=== PATIENT | female | born 1955 | race Caucasian/White ===

== ENCOUNTER → 2017-06-12 | Outpatient (CLI) | payer OTHER | END | disposition home or self-care (01) | LOC: C.PAPS 15:57 | PROVIDERS: ATTEND Obstetrics & Gynecology | DX: Z01.419 Encounter for gynecological examination (general) (routine) without abnormal findings (principal) ==

== ENCOUNTER 2021-08-11 05:33 | Observation (INO) ==
[2021-08-11] MEDS ORDERED: FAMOTIDINE 20MG IV PUSH 20 MG/5 ML SYR IV STA (05:46)
[2021-08-11] MEDS ORDERED: ONDANSETRON INJ 2 MG/ML 2 ML VIAL IV STA ×2 (05:46→08:57)
[2021-08-11 06:14] LABS: Basophils # (auto) 0.01 K/uL (0-0.2); Basophils % (auto) 0.1 %; Eosinophils # (auto) 0.02 K/uL (0-0.5); Eosinophils % (auto) 0.2 %; Hematocrit (blood only) 44.1 % (37-47); Immature Granulocytes # (auto) 0.02 K/uL (0.00-0.02); Immature Granulocytes % (auto) 0.2 %; Lymphocytes # (auto) 0.99 K/uL (1.2-3.4); Lymphocytes % (auto) 10.1 %; Mean Corpuscular Hemoglobin 30.1 pg (25-34); Mean Corpuscular Volume 88.4 fL (80-100); Mean Platelet Volume 9.4 fL (7.4-10.4); Monocytes % (auto) 4.1 %; Neutrophils # (auto) 8.35 K/uL (1.4-6.5); Neutrophils % (auto) 85.3 %; Platelet Count 255 K/uL (130-400); RDW Coefficient of Variation 12.9 % (11.5-14.5); Red Blood Count 4.99 M/uL (4.2-5.4); White Blood Count 9.79 K/uL (4.8-10.8)
[2021-08-11 06:33] LABS: Albumin Globulin Ratio 1.7 (0.9-2); Albumin Level 4.5 gm/dl (3.4-5.0); BUN Creatinine Ratio 21.3 (10-20); Bilirubin,Total 1.3 mg/dl (0.2-1.0); Calcium 9.8 mg/dl (8.5-10.1); Creatinine Clr Calc Pharmacy 64.6 ml/min; Est GFR (African American) 96.9 ml/min; Est GFR (Non-African American) 83.6 ml/min; Globulin 2.6 gm/dl (2.5-4.0); Potassium 3.8 mmol/L (3.5-5.1); Total Protein 7.1 gm/dl (6.0-8.3)
--- NOTE | 2021-08-11 06:57 | Emergency Department Note ---
History of Present Illness General Chief complaint: Abdominal Pain Stated complaint: UPPER ABD PAIN,VOMITING,CHEST PAID,SHOULD/NECK ALIX Time Seen by Provider: 08/11/21 06:29 History of Present Illness Maximum Pain Intensity: 5 70-year-old female presents to the ED with a chief complaint of abdominal pain. Patient reported a crampy and occasionally sharp upper abdominal pain and present for the past couple of days. He also states that yesterday she developed nausea and vomiting. Denies any diarrhea. Last normal bowel movement was yesterday morning. No fevers. No sick contacts. States that her pain is somewhat subsided at this time. She did receive some nausea medication prior to me seeing her. She states that that has helped. Denies any back pains. Does report a history of hysterectomy several months ago. He states that they also found cancer in her uterus. She is scheduled to start chemotherapy. No other complaints at this time. No urinary symptoms. Vaginal discharge. Home Medications Medication Instructions Recorded Confirmed Type omega-3 acid ethyl esters 1 gram 1 cap PO QAM 02/15/21 08/08/21 History capsule (Lovaza) thyroid (pork) 60 mg tablet 60 mg PO QAM tab 02/20/21 08/08/21 History cholecalciferol (vitamin D3) 50 50 mcg PO DAILY 08/06/21 08/08/21 History mcg (2,000 unit) capsule Allergies Allergy/AdvReac Type Severity Reaction Status Date / Time egg Allergy Intermediate "INFLAMMATORY Verified 08/08/21 13:58 REACTION" milk Allergy Intermediate "dairy Verified 08/08/21 13:58 products" - "INFLAMMATORY REACTION" levofloxacin [From Levaquin] AdvReac Intermediate "didn't Verified 08/08/21 13:58 feel well." Past Med/Surg History Medical History Anxiety HIGH STRESS LEVEL OVER PAST FEW MONTHS, MULTIPLE DEATHS OF LOVED ONES IN THE PAST YR Bronchitis COPD (chronic obstructive pulmonary disease) NO CURRENT MEDS Family history of reaction to anesthesia MOM - SLOW TO WAKE UP Hepatitis HX HEPATITIS B History of anesthesia reaction "OVERLY SENSITIVE TO" - SLOW TO WAKE UP History of rheumatic fever Hypothyroidism 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 Mild MR Snores ORAL APPLIANCE, NO HX SLEEP STUDY Spinal arachnoid cyst Surgical History H/O: hysterectomy Robotic Assisted Laparoscopic hysterectomy, Bilateral Salpingo-oopherectomy History of colonoscopy History of dilatation and curettage last 03/11/21 @ [place] with Dr. Schmitz History of parotid gland excision S/P appendectomy HX S/P tonsillectomy HX S/P wisdom tooth extraction HX Family History Father Heart disease Grandfather (Paternal) No problems noted. Grandfather (Maternal) No problems noted. Grandmother Colorectal cancer Mother Family history of colonic polyps History of anesthesia reaction overly sensitive to anesthesia Stroke Social History Smoking Status: Never smoker Second Hand Exposure: No; Hx Alcohol Use: Yes Alcohol type: wine Hx Substance Use: No Preferred Language: Turkmen Communication Ability: Effective Visual Impairment: No Limitations [employer] Professor Required: No Beliefs That Will Affect Care: None marital status: Current Living Situation: Spouse current occupational status: retired How many Children do You have: 0 Feels Safe at Home: Yes during the past year weight has: remained stable Assistive Devices: Glasses Review of Systems A total of 10 systems reviewed and were otherwise negative Physical Exam Vital Signs Vital Signs - 24 hr 08/11/21 05:37 08/11/21 05:58 08/11/21 05:59 Temperature 36.7 C Temperature Source Temporal Artery Scan Pulse Rate 104 H 99 H Pulse Rate [Finger] Pulse Rate from SpO2 Sensor Pulse Rhythm Regular Pulse Rhythm [Finger] Respiratory Rate 18 26 H 18 Respiratory Effort / Characteristics Non-Labored Spontaneous Non-Labored Respiratory Depth Normal Normal Respiratory Pattern Regular Blood Pressure 126/84 Blood Pressure [Right Arm] 142/83 H Blood Pressure Mean 98 Blood Pressure Mean [Right Arm] 102 Blood Pressure Position Sitting Blood Pressure Position [Right Arm] Sitting Pulse Oximetry 97 98 98 Oxygen Delivery Method Room Air Room Air Room Air Sepsis Recent Fever Within 48 Hours No Sepsis New/Unexplained Change in Mental Status No Sepsis Action Taken by Nursing No Action Required 08/11/21 06:20 08/11/21 06:30 08/11/21 06:40 Temperature Temperature Source Pulse Rate 79 91 H 86 Pulse Rate [Finger] Pulse Rate from SpO2 Sensor 81 90 88 Pulse Rhythm Pulse Rhythm [Finger] Respiratory Rate 13 16 17 Respiratory Effort / Characteristics Respiratory Depth Respiratory Pattern Blood Pressure Blood Pressure [Right Arm] Blood Pressure Mean Blood Pressure Mean [Right Arm] Blood Pressure Position Blood Pressure Position [Right Arm] Pulse Oximetry 100 100 98 Oxygen Delivery Method Sepsis Recent Fever Within 48 Hours Sepsis New/Unexplained Change in Mental Status Sepsis Action Taken by Nursing 08/11/21 07:22 08/11/21 08:30 Temperature Temperature Source Pulse Rate Pulse Rate [Finger] 85 84 Pulse Rate from SpO2 Sensor Pulse Rhythm Pulse Rhythm [Finger] Regular Respiratory Rate 18 18 Respiratory Effort / Characteristics Respiratory Depth Respiratory Pattern Blood Pressure Blood Pressure [Right Arm] 135/81 137/88 Blood Pressure Mean Blood Pressure Mean [Right Arm] 99 104 Blood Pressure Position Blood Pressure Position [Right Arm] Pulse Oximetry 99 100 Oxygen Delivery Method Room Air Room Air Sepsis Recent Fever Within 48 Hours Sepsis New/Unexplained Change in Mental Status Sepsis Action Taken by Nursing CONSTITUTIONAL/VITAL SIGNS: Reviewed / noted above. GENERAL: Non-toxic in appearance. INTEGUMENTARY: Warm, dry, and [place]. HEAD: Normocephalic. EYES: without scleral icterus or trauma. ENT/OROPHARYNX: clear and moist. LYMPHADENOPATHY/NECK: Is supple without lymphadenopathy or meningismus. RESPIRATORY: Clear to auscultation bilaterally. No increased work of breathing. CARDIOVASCULAR: Regular rate and rhythm. GI/ABDOMEN: Soft and mildly tender in the pelvic area. No organomegaly or pulsatile mass. EXTREMITIES: Warm and well perfused. BACK: No CVA tenderness. NEUROLOGICAL: Intact without focal deficits. PSYCHIATRIC: normal affect. MUSCULOSKELETAL: Normally developed with good muscle tone. TRIAGE NURSING DOCUMENTATION REVIEWED. Course Administered Medications Sodium Chloride (Nss 1000ml) 2,000 mls @ 999 mls/hr IV .Q2H1M ONE Stop: 08/11/21 10:12 Last Admin: 08/11/21 08:20 Dose: 999 mls/hr Documented by: [id number] Discontinued Medications Famotidine (Pepcid 20mg Iv Push) 20 mg in 5 mls @ 2.5 mls/min IV NOW STA Stop: 08/11/21 05:47 Last Admin: 08/11/21 06:03 Dose: 2.5 mls/min Documented by: [id number] Ondansetron HCl (Ondansetron Inj 2 Mg/Ml 2 Ml Vial) 4 mg IV NOW STA Stop: 08/11/21 05:47 Last Admin: 08/11/21 06:01 Dose: 4 mg Documented by: [id number] Medical Decision Making Differential Diagnosis Differential considered: pancreatitis, hepatitis, acute cholecystitis, AAA, UTI, pyelonephritis, kidney stones, appendicitis, diverticulitis, shingles, b owel obstruction, mesenteric ischemia, intussusception,hernia Medical Records Attestation: I reviewed the patient's medical records. Home Medications Current Medication List: was personally reviewed by me Laboratory Data Attestation: I reviewed the patient's lab results. Result diagrams: 08/11/21 06:00 08/11/21 06:00 Lab Results 08/11/21 08/11/21 08/11/21 Range/Units 06:00 06:00 06:00 WBC 9.79 (4.8-10.8) K/uL RBC 4.99 (4.2-5.4) M/uL Hgb 15.0 (12.0-16.0) g/dL Hct 44.1 (37-47) % MCV 88.4 (80-100) fL MCH 30.1 (25-34) pg MCHC 34.0 (32-36) g/dL RDW Std Deviation 42.0 (36.4-46.3) fL RDW Coeff of Elvi 12.9 (11.5-14.5) % Plt Count 255 (130-400) K/uL MPV 9.4 (7.4-10.4) fL Immature Gran % (Auto) 0.2 % Neut % (Auto) 85.3 % Lymph % (Auto) 10.1 % [place] % (Auto) 4.1 % Eos % (Auto) 0.2 % Baso % (Auto) 0.1 % Neut # (Auto) 8.35 H (1.4-6.5) K/uL Lymph # (Auto) 0.99 L (1.2-3.4) K/uL [place] # (Auto) 0.40 (0.11-0.59) K/uL Eos # (Auto) 0.02 (0-0.5) K/uL Baso # (Auto) 0.01 (0-0.2) K/uL Immature Gran # (Auto) 0.02 (0.00-0.02) K/uL Sodium 138 (136-145) mmol/L Potassium 3.8 (3.5-5.1) mmol/L Chloride 101 (98-107) mmol/L Carbon Dioxide 26 (21-32) mmol/L Anion Gap 11 (3-11) BUN 16 (6-23) mg/dl Creatinine 0.75 (0.6-1.2) mg/dl Est Cr Clr Drug Dosing 64.6 ml/min Est GFR ( Amer) 96.9 ml/min Est GFR (Non-Af Amer) 83.6 ml/min BUN/Creatinine Ratio 21.3 H (10-20) Glucose 91 (70-99(Fasting)) mg/dl Calcium 9.8 (8.5-10.1) mg/dl Total Bilirubin 1.3 H (0.2-1.0) mg/dl AST 17 (13-39) U/L ALT 11 (7-52) U/L Alkaline Phosphatase 50 (34-104) U/L Troponin I High Sens 4.0 (0-14) pg/ml Total Protein 7.1 (6.0-8.3) gm/dl Albumin 4.5 (3.4-5.0) gm/dl Globulin 2.6 (2.5-4.0) gm/dl Albumin/Globulin Ratio 1.7 (0.9-2) Lipase 15 (11-82) U/L Imaging Data Radiologist's Impression: Abdomen/Pelvis CT 08/11/21 06:[address] WITHOUT CONTRAST CT DOSE: 266.47 mGy.cm HISTORY: Lower abdominal pain. TECHNIQUE: Multiaxial CT images of the abdomen and pelvis were performed without contrast. A dose lowering technique was utilized adhering to the principles of ALARA. COMPARISON STUDY: Abdomen and pelvis CT 06/21/2021. FINDINGS: The lung bases are clear. No pneumoperitoneum. No pneumatosis. No fractures within the visualized osseous structures. The unenhanced liver, spleen, left adrenal gland, gallbladder, pancreas, and kidneys are unremarkable. No hydronephrosis. There is 1.5 cm right adrenal gland nodule which likely represents a benign adenoma. Trace perihepatic ascites is noted. No retroperit escamilla lymphadenopathy. Normal caliber abdominal aorta. No hydronephrosis. Small amount pelvic free fluid. Suboptimal evaluation for bowel pathology due to the lack of intravenous and oral contrast. There are multiple dilated loops of small bowel within the mid to lower abdomen with mild adjacent edema this is consistent with a small bowel obstruction. The exact transition point is difficult to assess due to the lack of intravenous contrast. Lobular density within the left side of the pelvis on image 331 may represent a dilated loop of small bowel. However, this is difficult to characterize due to lack of intravenous contrast. Therefore, follow-up pelvic ultrasound recommended to exclude the possibility of a left pelvic sidewall mass. Prior hysterectomy. The bladder is unremarkable. A small bowel measures up to 3.5 cm in diameter. IMPRESSION: 1. There are multiple dilated loops of small bowel seen within the mid to lower abdomen consistent with a small bowel obstruction. The exact transition point is not well assessed due to the lack of contrast on this study. 2. Small amount of ascites. 3. Prior hysterectomy. 4. Right adrenal adenoma. 5. Lobular density within the left side of the pelvis as described above which likely represents a dilated loop of small bowel. However, this difficult to characterize due to lack of intravenous contrast. Follow-up pelvic ultrasound should be considered to exclude the possibility of a left pelvic sidewall mass. ACT 112: Negative or not required by law. Electronically signed by: Kevin Gallardo M.D. 08/11/2021 8:18 AM ECG Data Attestation: I personally reviewed and interpreted this ECG as follows: Additional Comments: Twelve-lead EKG: Per my interpretation shows a normal sinus rhythm at a rate of 93. No ST elevation. No PVCs. Normal QTC. MDM Narrative 66-year-old female presents with some upper abdominal pain as well as nausea and vomiting that started 2 days ago. Moved IV Zofran here prior to me seeing her as well as some IV Pepcid and her symptoms seem to have improved some. On my exam she has some lower abdominal tenderness that is mild. She has history of hysterectomy several months ago. Vital signs are normal. CT scan of the abdomen pelvis reveals small bowel obstruction. CBC and chemistry panel was unremarkable. Lipase was negative. Twelve-lead EKG showed a normal sinus rhythm. Troponin was negative. The patient was treated with Zofran IV x2 as well as IV fluids 2 L normal saline during her ED stay. She was also given IV Pepcid. She will be seen by the hospitalist for further inpatient evaluation and care. Impression & Plan Abdominal pain, SBO (small bowel obstruction) Discharge Plan Visit Data Chief Complaint: Abdominal Pain Stated Complaint: UPPER ABD PAIN,VOMITING,CHEST PAID,SHOULD/NECK ALIX ED Provider: Jose Luis Whitfield Discharge Problem: Abdominal pain, SBO (small bowel obstruction) Patient Disposition: Being Evaluated by Hospitalist Forms Stand Alone Forms: [facility] [place] Prescriptions Prescriptions: No Action omega-3 acid ethyl esters [Lovaza] 1 gram capsule 1 cap PO QAM RF: 0 cholecalciferol (vitamin D3) 50 mcg (2,000 unit) capsule 50 mcg PO DAILY RF: 0 thyroid (pork) 60 mg tablet 60 mg PO QAM RF: 0 Referrals Referrals: Maranda Hernandez MD [Primary Care Provider] -
[2021-08-11] MEDS ORDERED: SODIUM CHLORIDE 0.9% 1000ML 2,000 ML IV ONE (08:12)
--- NOTE | 2021-08-11 08:20 | CT Scan Report ---
ABDOMEN AND PELVIS CT WITHOUT CONTRAST CT DOSE: 266.47 mGy.cm HISTORY: Lower abdominal pain. TECHNIQUE: Multiaxial CT images of the abdomen and pelvis were performed without contrast. A dose lo wering technique was utilized adhering to the principles of ALARA. COMPARISON STUDY: Abdomen and pelvis CT 06/21/2021. FINDINGS: The lung bases are clear. No pneumoperitoneum. No pneumatosis. No fractures within the visu alized osseous structures. The unenhanced liver, spleen, left adrenal gland, gallbladder, pancreas, a nd kidneys are unremarkable. No hydronephrosis. There is 1.5 cm right adrenal gland nodule which like ly represents a benign adenoma. Trace perihepatic ascites is noted. No retroperitoneal lymphadenopath y. Normal caliber abdominal aorta. No hydronephrosis. Small amount pelvic free fluid. Suboptimal eval uation for bowel pathology due to the lack of intravenous and oral contrast. There are multiple dilat ed loops of small bowel within the mid to lower abdomen with mild adjacent edema this is consistent w ith a small bowel obstruction. The exact transition point is difficult to assess due to the lack of i ntravenous contrast. Lobular density within the left side of the pelvis on image 331 may represent a dilated loop of small bowel. However, this is difficult to characterize due to lack of intravenous co ntrast. Therefore, follow-up pelvic ultrasound recommended to exclude the possibility of a left pelvi c sidewall mass. Prior hysterectomy. The bladder is unremarkable. A small bowel measures up to 3.5 cm in diameter. IMPRESSION: 1. There are multiple dilated loops of small bowel seen within the mid to lower abdomen consistent wi th a small bowel obstruction. The exact transition point is not well assessed due to the lack of cont rast on this study. 2. Small amount of ascites. 3. Prior hysterectomy. 4. Right adrenal adenoma. 5. Lobular density within the left side of the pelvis as described above which likely represents a di lated loop of small bowel. However, this difficult to characterize due to lack of intravenous contras t. Follow-up pelvic ultrasound should be considered to exclude the possibility of a left pelvic sidew all mass. ACT 112: Negative or not required by law. Electronically signed by: Kevin Gallardo M.D. 08/11/2021 8:18 AM
[2021-08-11 09:53] LABS: Appearance Urine Clear (Clear); Bilirubin Urine Negative (Negative); Blood Urine Negative (Negative); Color Urine Yellow; Glucose Urine UA Negative (Negative); Ketones Urine 1+ (Negative); Leukocyte Esterase Urine Negative (Negative); Nitrite Urine Negative (Negative); Protein Urine Negative (Negative); Urobilinogen Urine Negative (Negative)
[2021-08-11] MEDS ORDERED: ACETAMINOPHEN 1000 MG/100 ML IV IV STA (10:22)
--- NOTE | 2021-08-11 10:38 | Electrocardiogram Report ---
Test Reason : Blood Pressure : / mmHG Vent. Rate : 093 BPM Atrial Rate : 093 BPM P-R Int : 130 ms QRS Dur : 090 ms QT Int : 368 ms P-R-T Axes : 081 087 064 degrees QTc Int : 457 ms Normal sinus rhythm with sinus arrhythmia Possible Left atrial enlargement Nonspecific ST abnormality No previous ECGs available Confirmed by Hussein Hou [id number]) on 08/11/2021 10:38:09 AM Referred By: Confirmed By:Hussein Hou
[2021-08-11] MEDS ORDERED: MoRPHine SULFATE 2 MG/ML CARP IV PRN ×2 (11:19→15:57)
[2021-08-11] MEDS: LACTATED RINGER'S 1,000 ML IV SCH ×2 (12:21→20:23)
--- NOTE | 2021-08-11 12:41 | Ultrasound Report ---
US pelvic limited CLINICAL HISTORY: bowel loop vs pelvic mass seen on CT COMPARISON STUDY: Abdomen and pelvis CT 08/11/2021. FINDINGS: There is a 4.4 x 4.4 x 3.8 cm complex cystic lesion within the left lower quadrant which co rresponds to the CT abnormality. This demonstrates internal echoes and thin septations. There is lizzie pheral color flow within this lesion. This is adjacent to multiple dilated loops of small bowel. IMPRESSION: A 4.4 x 4.4 x 3.8 cm complex cystic lesion within the left lower quadrant which correspo nds to the CT abnormality. This is indeterminate could and represent a complex cystic lesion within t he residual left ovary, postoperative seroma/lymphocele, or abscess. ACT 112: Negative or not required by law. Electronically signed by: Kevin Gallardo M.D. 08/11/2021 12:40 PM
[2021-08-11] MEDS: ENOXAPARIN INJ 30 MG/0.3 ML SYR SQ SCH (13:45)
--- NOTE | 2021-08-11 15:52 | History & Physical Report ---
Date of Service August 11, 2021 Assessment & Plan (1) SBO (small bowel obstruction): Plan: - Most likely adhesional -Given that a recent malignancy history, that was of a degree of concern, but there is really nothing that appears malignant on abdomen/pelvic imaging, she has no adenopathy, no liver mets, etc.so I doubt this is at play -Discussed the high probability of success with supportive care and expectant management with what appears to be adhesional small bowel obstructioncurrently n.p.o. except for ice chips (in moderation), IV fluids, pain and nausea control, anticipate slowly advancing diet as pain and nausea get better. If she does not show any improvement over a few days, shows any significant worsening, or if we keep "hitting the ceiling" of not being able to advance her dietthen surgical evaluation. (2) Soft tissue lesion of pelvic region: Plan: - CT scan with question of loop of bowel versus soft tissue mass with ultrasound recommendedultrasound done which showed ovarian cyst versus seroma versus abscessshe does not believe she has any ovaries left after her procedure in April, and the operative notes do list bilateral salpingo-oophorectomy, so highly unlikely to be ovarian cyst. With no significant fevers, and no pain other than what would be attributable to bowel obstruction, abscess seems quite unlikely as wellto that end, will follow white count into tomorrow and check a CRPbut more than likely this is a seroma. We discussed HOSPITALITY SERVICES MANAGER evaluation versus expectant management/serial imaging, and both felt safe with the plan of expectant management and serial imaging, particularly given that she will have quite a bit of imaging of that region as she has her treatments (3) Leiomyosarcoma of uterus: Plan: - Empathized with her going through a lot right now outside of her own medical issues, and also empathized with her thought process that if all of the cancer was removed surgically, she might be okay without having to go through chemotherapy. However, noted that unfortunately this would be a very significant zaidi, that if she "Gisela wrong" she really could find herself in a position where she has cost herself her own life. Also noted that while she has a significant number of life events going on right now, I would not want her to delay treatment further by much at all, as that could allow any seeding of cancer to "get a foot hold" and be much tougher or potentially impossible to treat. We discussed that if truly 1 to 2 weeks makes a big difference in her stress, then that could easily be worthwhile, but if not, would want her to proceed as scheduled. To that end, while her echocardiogram is really as an outpatient, it appears necessary prior to her chemotherapy, and so that we do not cause delays in her chemo ourselves, echo has been ordered (4) Hypothyroidism: Plan: Would like to check a TSH because she is on a pork thyroid rather than a more conventional levothyroxinebut given her acute illness, now would not be a good time to get an accurate TSH result (5) DVT prophylaxis: Plan: Lovenox (6) Discharge planning issues: Plan: Admit to [facility], anticipate being able to discharge to home once her bowel obstruction has improved Admission and Anticipated Discharge Date Admission Date: August 11, 2021 History of Present Illness Chief Complaint: Abdominal pain, nausea vomiting Primary Care Provider: Maranda Hernandez MD Patient is a very pleasant 66-year-old female who notes that since Thursday she has had worsening of abdominal pain nausea and vomiting. At first she was trying to wait it out at home, then through the day yesterday whenever she was not really able to keep much of anything down she started become more concerned, and then today whenever she still had pain nausea and vomiting she decided to seek care. Here in the ER she was found to have findings consistent with a small bowel obstruction we were asked to admit for further management. She denies any other symptoms at all, no fevers chills sweats, no respiratory symptoms, no symptoms at all other than the abdominal pain nausea vomiting. She is in the middle of initiation of chemotherapy for leiomyosarcoma of the uterusshe had a hysterectomy about 3 months ago, and was recommended for postoperative therapyshe is to have a port placed this week and chemo to start shortly thereafter, echocardiogram tomorrow. She was not sure if she wanted to follow through with the chemotherapy given that pathologically the tumor was entirely removed. She relates that her understanding of the main reason for the therapy was due to concern of potential seeding of malignancy. She also notes that even if she was to follow through with therapy, she would like to wait another week or 2 due to a series of stressful events in her life that have recently occurred Allergies Allergy/AdvReac Type Severity Reaction Status Date / Time egg Allergy Intermediate "INFLAMMATORY Verified 08/08/21 13:58 REACTION" milk Allergy Intermediate "dairy Verified 08/08/21 13:58 products" - "INFLAMMATORY REACTION" levofloxacin [From Levaquin] AdvReac Intermediate "didn't Verified 08/08/21 13:58 feel well." Home Medications Medication Instructions Recorded Confirmed Type omega-3 acid ethyl esters 1 gram 1 cap PO QAM 02/15/21 08/11/21 History capsule (Lovaza) thyroid (pork) 60 mg tablet 60 mg PO QAM tab 02/20/21 08/11/21 History cholecalciferol (vitamin D3) 50 50 mcg PO DAILY 08/06/21 08/11/21 History mcg (2,000 unit) capsule eszopiclone 3 mg tablet (Lunesta) 3 mg PO HS 08/11/21 08/11/21 History Past Med/Surg History Medical History Anxiety HIGH STRESS LEVEL OVER PAST FEW MONTHS, MULTIPLE DEATHS OF LOVED ONES IN THE PAST YR Bronchitis COPD (chronic obstructive pulmonary disease) NO CURRENT MEDS Family history of reaction to anesthesia MOM - SLOW TO WAKE UP Hepatitis HX HEPATITIS B History of anesthesia reaction "OVERLY SENSITIVE TO" - SLOW TO WAKE UP History of rheumatic fever Hypothyroidism 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 Mild MR Snores ORAL APPLIANCE, NO HX SLEEP STUDY Spinal arachnoid cyst Surgical History H/O: hysterectomy Robotic Assisted Laparoscopic hysterectomy, Bilateral Salpingo-oopherectomy History of colonoscopy History of dilatation and curettage last 03/11/21 @ [place] with Dr. Schmitz History of parotid gland excision S/P appendectomy HX S/P tonsillectomy HX S/P wisdom tooth extraction HX Family History Father Heart disease Grandfather (Paternal) No problems noted. Grandfather (Maternal) No problems noted. 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 HEENT normocephalic atraumatic mucous membranes moist. Cardio is regular without rubs murmurs or gallops. Lungs are clear to auscultation bilaterally no rales rhonchi wheeze with good effort. Abdomen is soft, mildly distended at worst versus not really distended at all, mild diffuse tenderness without any focal areas no guarding no rebound no rigiditytenderness is probably more direc vadim towards the lower abdomen. Bowel sounds are somewhat hypoactive. Extremities without sinus clubbing or edema no calf tenderness. Skin shows no rashes no pallor or icterus. Neuro shows cranial nerves II through XII be grossly intact gross motor and sensory are intact. Musculoskeletal yields no gross lesions. Mental status shows good reasonable recall normal mood and affect good judgment and insight. Results & Data Results & Data ([facility]) Vital Signs (Past 12 Hours) Vital Signs Temp Pulse Pulse Resp BP BP Pulse Ox 08/11/21 12:58 98.6 F 75 18 135/73 99 08/11/21 09:49 88 20 149/93 H 100 08/11/21 08:30 84 18 137/88 100 08/11/21 07:22 85 18 135/81 99 08/11/21 06:40 86 17 98 08/11/21 06:30 91 H 16 100 08/11/21 06:20 79 13 100 08/11/21 05:59 99 H 18 98 08/11/21 05:58 26 H 142/83 H 98 08/11/21 05:37 98.1 F 104 H 18 126/84 97 Code Status & VTE Plan VTE Prophylaxis Plan VTE Prophylaxis will be ordered: Yes PG Care Time/CCT Total # of Minutes Spent Total Time Spent with Patient: Total time spent is greater than 50% in coordination of care (as documented) at patient's floor/unit and/or counseling patient: Coding Level of Care Code 48555 Initial Inpt Care Lvl 3 Diagnoses SBO (small bowel obstruction) K56.609 Soft tissue lesion of pelvic region M79.9 Leiomyosarcoma of uterus C55 Hypothyroidism E03.9 DVT prophylaxis Z29.9 Discharge planning issues Z02.9
[2021-08-11] MEDS ORDERED: KETOROLAC 30 MG/ML VIAL IV PRN ×2 (15:55→15:57)
[2021-08-11] MEDS: ONDANSETRON INJ 2 MG/ML 2 ML VIAL IV PRN (15:57)
[2021-08-11] MEDS ORDERED: diphenhydrAMINE 50 MG/ML VIAL IV ONE (20:42)
[2021-08-11] MEDS: ACETAMINOPHEN 1,000 MG/100 ML VIAL IV PRN (22:04)
[2021-08-11] MEDS: ESZOPICLONE 1 MG TAB PO SCH (22:07)
[2021-08-12] MEDS: LACTATED RINGER'S 1,000 ML IV SCH ×3 (03:30→21:38)
--- NOTE | 2021-08-12 06:59 | Hospitalist Progress Note ---
Date of Service August 12, 2021 Assessment & Plan (1) SBO (small bowel obstruction): Plan: - Most likely adhesional -Given that a recent malignancy history, that was of a degree of concern, but there is really nothing that appears malignant on abdomen/pelvic imaging, she has no adenopathy, no liver mets, etc.so I doubt this is at play -Discussed the high probability of success with supportive care and expectant management with what appears to be adhesional small bowel obstructioncurrently n.p.o. except for ice chips (in moderation), IV fluids, pain and nausea control, anticipate slowly advancing diet as pain and nausea get better. If she does not show any improvement over a few days, shows any significant worsening, or if we keep "hitting the ceiling" of not being able to advance her dietthen surgical evaluation. (2) Soft tissue lesion of pelvic region: Plan: - CT scan with question of loop of bowel versus soft tissue mass with ultrasound recommendedultrasound done which showed ovarian cyst versus seroma versus abscessshe does not believe she has any ovaries left after her procedure in April, and the operative notes do list bilateral salpingo-oophorectomy, so highly unlikely to be ovarian cyst. With no significant fevers, and no pain other than what would be attributable to bowel obstruction, abscess seems quite unlikely as wellto that end, will follow white count into tomorrow and check a CRPbut more than likely this is a seroma. We discussed PACKING ATTENDANT evaluation versus expectant management/serial imaging, and both felt safe with the plan of expectant management and serial imaging, particularly given that she will have quite a bit of imaging of that region as she has her treatments (3) Leiomyosarcoma of uterus: Plan: - Empathized with her going through a lot right now outside of her own medical issues, and also empathized with her thought process that if all of the cancer was removed surgically, she might be okay without having to go through chemotherapy. However, noted that unfortunately this would be a very significant zaidi, that if she "Gisela wrong" she really could find herself in a position where she has cost herself her own life. Also noted that while she has a significant number of life events going on right now, I would not want her to delay treatment further by much at all, as that could allow any seeding of cancer to "get a foot hold" and be much tougher or potentially impossible to treat. We discussed that if truly 1 to 2 weeks makes a big difference in her stress, then that could easily be worthwhile, but if not, would want her to proceed as scheduled. To that end, while her echocardiogram is really as an outpatient, it appears necessary prior to her chemotherapy, and so that we do not cause delays in her chemo ourselves, echo has been ordered (4) Hypothyroidism: Plan: Would like to check a TSH because she is on a pork thyroid rather than a more conventional levothyroxinebut given her acute illness, now would not be a good time to get an accurate TSH result (5) DVT prophylaxis: Plan: Lovenox (6) Discharge planning issues: Plan: Admit to medical [facility] service, anticipate being able to discharge to home once her bowel obstruction has improved Admission and Anticipated Discharge Date Admission Date: August 11, 2021 Results & Data Results & Data ([facility]) Vital Signs (Past 12 Hours) Vital Signs Temp Pulse Resp BP Pulse Ox 08/11/21 22:08 36.3 C L 82 16 132/77 96
[2021-08-12 07:26] LABS: Basophils # (auto) 0.01 K/uL (0-0.2); Basophils % (auto) 0.2 %; Eosinophils # (auto) 0.05 K/uL (0-0.5); Eosinophils % (auto) 0.8 %; Hematocrit (blood only) 39.8 % (37-47); Hemoglobin 13.3 g/dL (12.0-16.0); Immature Granulocytes # (auto) 0.01 K/uL (0.00-0.02); Immature Granulocytes % (auto) 0.2 %; Mean Corpuscular Hemoglobin 29.8 pg (25-34); Mean Corpuscular Hgb Conc 33.4 g/dL (32-36); Mean Corpuscular Volume 89.2 fL (80-100); Mean Platelet Volume 9.2 fL (7.4-10.4); Monocytes # (auto) 0.44 K/uL (0.11-0.59); Neutrophils # (auto) 5.27 K/uL (1.4-6.5); Neutrophils % (auto) 83.8 %; Platelet Count 176 K/uL (130-400); RDW Coefficient of Variation 12.8 % (11.5-14.5); RDW Standard Deviation 41.4 fL (36.4-46.3); Red Blood Count 4.46 M/uL (4.2-5.4); White Blood Count 6.28 K/uL (4.8-10.8)
[2021-08-12] MEDS: ONDANSETRON INJ 2 MG/ML 2 ML VIAL IV PRN ×2 (07:45→13:59)
[2021-08-12 07:48] LABS: BUN Creatinine Ratio 24.6 (10-20); C Reactive Protein 2.34 mg/dl (0-0.5); Calcium 8.7 mg/dl (8.5-10.1); Creatinine Clr Calc Pharmacy 70.2 ml/min; Est GFR (African American) 105.9 ml/min; Est GFR (Non-African American) 91.4 ml/min; Potassium 4.1 mmol/L (3.5-5.1)
--- NOTE | 2021-08-12 08:56 | XCELERA ---
[id number]
[2021-08-12] MEDS ORDERED: FAMOTIDINE 20 MG in SYRINGE 3 ML IV ONE (10:00)
[2021-08-12] MEDS: ACETAMINOPHEN 1,000 MG/100 ML VIAL IV PRN (10:09)
[2021-08-12] MEDS: ENOXAPARIN INJ 30 MG/0.3 ML SYR SQ SCH (10:35)
[2021-08-12] MEDS ORDERED: GLUCAGON FOR INJ 1 MG VIAL SQ PRN (11:08)
[2021-08-12] MEDS ORDERED: DEXTROSE 50% 50 ML SYRINGE IV PRN (11:08)
--- NOTE | 2021-08-12 13:08 | Hospitalist Progress Note ---
Date of Service August 12, 2021 Assessment & Plan (1) SBO (small bowel obstruction): Plan: Small bowel obstruction - Most likely etiology is adhesional. Patient has history of 2 abdominal surgeries; appendectomy was 10-20 years ago per patient extensive adhesions noted by surgeon during recent hysterectomy. Although patient has history of malignancy, CT scan without findings of metastatic burden. - NPO. Ice chips in moderation. - If patient fails conservative therapy today, consider consult gen surg for NG tube - IV Fluids on LR solution - 08/12: Glucose 54; hypoglycemic protocol ordered - Pain control - Tylenol 1000mg IV PRN - Nausea control - Zofran PRN (2) Leiomyosarcoma of uterus: Plan: - S/p hysterectomy, following with oncology, plans for chemotherapy in the near future (3) Soft tissue lesion of pelvic region: Plan: - Incidental complex cystic structure identified on CT with follow-up pelvic ultrasound recommended - Pelvic U/S: A 4.4 x 4.4 x 3.8 cm complex cystic lesion within the left lower quadrant. This is indeterminate could and represent a complex cystic lesion within the residual left ovary, postoperative seroma/lymphocele, or abscess. -Given bilateral oophrectomy, highly suspect post-operative seroma - Suggest post-discharge follow-up with OBGYN (4) DVT prophylaxis: Plan: Lovenox Plan: Diet: NPO DVT Prophylaxis: Lovenox Dispo: Med/Surg Code Status: Full Admission and Anticipated Discharge Date Admission Date: August 11, 2021 Supervising Physician Co-Signing Physician Notes I also saw the patient and confirmed noonan portions of the history and physical examination. I agree with the impression and plan as noted the resident documentation. Upon exam, the patient resting comfortably in bed. She had some interest in few last evening, some food aversion/nausea this morning, and late this morning feeling somewhat better. She has had flatus. She denies any abdominal pain at present. Exam 125/72, 85, 16, 36.9, 99% on room air Alert and oriented. Heart regular Lungs clear with nonlabored respirations Abdomen generally soft and nontender, very minimal tenderness in the left lower quadrant. Bowel sounds are auscultated, normal active. Small bowel obstruction, suspect adhesional With flatus and auscultated bowel sounds, improving with conservative approach Will continue n.p.o., if she develops an appetite later this evening, could try clears If worsens with or without p.o. trial, consider NG tube and surgical consultation Else as noted above Subjective John is feeling about the same today. She mentioned that she was hungry yesterday evening for a short period of time, but has not felt hungry yet today. She passed gas this morning for the first time since arriving to the hospital. She still has nausea which is about the same as yesterday, her abdominal bloating feels slightly improved. She has gotten up a few times to walk but feels a bit lightheaded. Denies any fever, chills, headache, vomiting. Review of Systems Review of Systems: see HPI Physical Exam Physical Exam: Gen- she is awake alert oriented x3 pleasant no distress. HEENT- normocephalic atraumatic mucous membranes moist. CV- Cardio is regular without rubs murmurs or gallops. Pulm- Lungs are clear to auscultation bilaterally no rales rhonchi wheeze with good effort. GI- Abdomen is soft, mildly distended. Normoactive bowel sounds in all 4 quadrants. Mild tenderness in the LUQ and LLQ. Extremities- Extremities without sinus clubbing or edema no calf tenderness. Skin- Skin shows no rashes no pallor or icterus. Neuro- CN II- XII grossly intact. Psych- Mental status shows good reasonable recall normal mood and affect good judgment and insight. Results & Data Results & Data ([facility]) Vital Signs (Past 12 Hours) Vital Signs Temp Pulse Resp BP Pulse Ox 08/12/21 07:39 37.3 C 87 16 129/70 98
[2021-08-12] MEDS: ESZOPICLONE 1 MG TAB PO SCH (21:44)
[2021-08-13] MEDS: LACTATED RINGER'S 1,000 ML IV SCH ×3 (02:46→20:44)
[2021-08-13 08:22] LABS: Hemoglobin 12.3 g/dL (12.0-16.0); Mean Corpuscular Hemoglobin 28.9 pg (25-34); Mean Corpuscular Hgb Conc 33.2 g/dL (32-36); Mean Corpuscular Volume 87.1 fL (80-100); Mean Platelet Volume 9.3 fL (7.4-10.4); Platelet Count 172 K/uL (130-400); RDW Standard Deviation 41.6 fL (36.4-46.3); Red Blood Count 4.25 M/uL (4.2-5.4); White Blood Count 2.76 K/uL (4.8-10.8)
--- NOTE | 2021-08-13 08:31 | Hospitalist Progress Note ---
Date of Service August 13, 2021 Assessment & Plan (1) SBO (small bowel obstruction): Plan: Small bowel obstruction - Most likely etiology is adhesional. Patient has history of 2 abdominal surgeries; appendectomy was 10-20 years ago per patient extensive adhesions noted by surgeon during recent hysterectomy. Although patient has history of malignancy, CT scan without findings of metastatic burden. - NPO on admission. Ice chips in moderation - 08/13: Upgrade diet to clear liquids AM, PM soft, bland foods - If worsening or fails advancing diet, consult gen surg - IV Fluids on LR solution - 08/12: Glucose 54; hypoglycemic protocol ordered - 08/13: Continue to monitor with advancing diet - Pain control - Tylenol 1000mg IV PRN - Nausea control - Zofran PRN (2) Leiomyosarcoma of uterus: Plan: - S/p hysterectomy, following with oncology, plans for chemotherapy in the near future (3) Soft tissue lesion of pelvic region: Plan: - Incidental complex cystic structure identified on CT with follow-up pelvic ultrasound recommended - Pelvic U/S: A 4.4 x 4.4 x 3.8 cm complex cystic lesion within the left l ower quadrant. This is indeterminate could and represent a complex cystic lesion within the residual left ovary, postoperative seroma/lymphocele, or abscess. -Given bilateral oophrectomy, highly suspect post-operative seroma - Suggest post-discharge follow-up with OBGYN (4) DVT prophylaxis: Plan: Lovenox - 08/11: Patient declined -08/12: Given Plan: Diet: Clear liquids DVT Prophylaxis: Lovenox Dispo: Med/Surg Code Status: Full Admission and Anticipated Discharge Date Admission Date: August 11, 2021 Supervising Physician Co-Signing Physician Notes Attending attestation Pt seen and examined in concert with [facility]. Dr. Michel Dutta. In agreement with the documented findings as noted in the resident documentation with any exceptions or additions as noted here. Tolerating clears at a low volume with onset of bloating and mild nausea requiring break in eating. Significantly better otherwise. Reports single, small BM this AM. On examination, VS as noted. S1/S2 nl RRR no MCG. CTAB. Abd NT/ND BS+ve SBO, likely adhesional - patient hesitant to use antiemetic therapy 'unless needed' - encouraged patient to engage w/ antiemetic therapy PRIOR to onset of symptoms for effectiveness. Progress diet VERY slowly as tolerated. NG tube if needed. DVT prophylaxis - patient has been refusing, counseled strongly to engage w/ DVT PPx in the setting of active neoplasia. Else see resident documentation as noted. Subjective John has had continued improvement in her bilateral lower quadrant abdominal pain. She felt hungry last night and that has continued until this morning; she feels ready for clear liquids. She had flatus last night and this morning. She did not take any Tylenol or Zofran last night. Has been up walking around and doing steps. Denies any episodes of vomiting, nausea, dizziness, syncope. Review of Systems Review of Systems: see HPI Physical Exam Physical Exam: Gen- she is awake alert oriented x3 pleasant no distress. HEENT- normocephalic atraumatic mucous membranes moist. CV- Cardio is regular without rubs murmurs or gallops. Pulm- Lungs are clear to auscultation bilaterally no rales rhonchi wheeze with good effort. GI- Abdomen is soft, mildly distended. Normoactive bowel sounds in all 4 quadrants. Mild tenderness in bilateral lower quadrants. Extremities- Extremities without sinus clubbing or edema no calf tenderness. Skin- Skin shows no rashes no pallor or icterus. Neuro- CN II- XII grossly intact. Psych- Mental status shows good reasonable recall normal mood and affect good judgment and insight. Results & Data Results & Data ([facility]) Vital Signs (Past 12 Hours) Vital Signs Temp Pulse Resp BP Pulse Ox 08/13/21 07:29 36.7 C 92 H 18 124/73 99 08/12/21 22:10 36.7 C 79 16 146/75 H 96
[2021-08-13 08:58] LABS: BUN Creatinine Ratio 19.4 (10-20); Calcium 8.7 mg/dl (8.5-10.1); Creatinine Clr Calc Pharmacy 78.1 ml/min; Est GFR (African American) 109.7 ml/min; Est GFR (Non-African American) 94.6 ml/min; Potassium 3.8 mmol/L (3.5-5.1)
[2021-08-13] MEDS: ENOXAPARIN INJ 30 MG/0.3 ML SYR SQ SCH ×2 (10:58→18:10)
[2021-08-14] MEDS: ESZOPICLONE 1 MG TAB PO SCH (04:11)
[2021-08-14] MEDS: LACTATED RINGER'S 1,000 ML IV SCH (05:29)
[2021-08-14 07:26] LABS: BUN Creatinine Ratio 10.2 (10-20); Calcium 8.9 mg/dl (8.5-10.1); Creatinine Clr Calc Pharmacy 82.1 ml/min; Est GFR (African American) 111.5 ml/min; Est GFR (Non-African American) 96.2 ml/min; Potassium 3.5 mmol/L (3.5-5.1)
[2021-08-14] MEDS ORDERED: FAMOTIDINE 20 MG in SYRINGE 3 ML IV ONE (08:45)
--- NOTE | 2021-08-14 08:53 | Hospitalist Progress Note ---
Date of Service August 14, 2021 Assessment & Plan (1) SBO (small bowel obstruction): Plan: Small bowel obstruction - Most likely etiology is adhesional. Patient has history of 2 abdominal surgeries; appendectomy was 10-20 years ago per patient extensive adhesions noted by surgeon during recent hysterectomy. Although patient has history of malignancy, CT scan without findings of metastatic burden. - NPO on admission. Ice chips in moderation - 08/13: Upgrade diet to clear liquids AM - 08/14: Upgrade diet to full liquids, PM to soft bland foods pending pt's tolerance - If worsening or fails advancing diet, consult gen surg - IV Fluids on LR solution - 08/12: Glucose 54; hypoglycemic protocol ordered - 08/13: Continue to monitor with advancing diet - Pain control - Tylenol 1000mg IV PRN - Nausea control - Zofran PRN (2) Leiomyosarcoma of uterus: Plan: - S/p hysterectomy, following with oncology, plans for chemotherapy in the near future - Patient declined DVT prophylaxis first 2 days of admission, encouraged prophylaxis in setting of active malignancy. Began Lovenox 08/13 PM. (3) Hepatitis C test positive: Plan: - Hep C Ab test positive; she is asymptomatic - Hep C RNA load pending (4) Soft tissue lesion of pelvic region: Plan: - Incidental complex cystic structure identified on CT with follow-up pelvic ultrasound recommended - Pelvic U/S: A 4.4 x 4.4 x 3.8 cm complex cystic lesion within the left lower quadrant. This is indeterminate could and represent a complex cystic lesion within the residual left ovary, postoperative seroma/lymphocele, or abscess. -Given bilateral oophrectomy, highly suspect post-operative seroma - Suggest post-discharge follow-up with OBGYN (5) DVT prophylaxis: Plan: Lovenox -08/11 & 08/12: Patient declined -08/13: Given Plan: Diet: Full liquids DVT Prophylaxis: Lovenox Dispo: Med/Surg Code Status: Full Admission and Anticipated Discharge Date Admission Date: August 11, 2021 Subjective John has had continued improvement in her bilateral lower quadrant abdominal pain and bloating; this has been best in the mornings and increases some when she starts walking around. Yesterday had 2 small BMs. She feels hungry this morning and would like to start with full liquids. She has continued to pass flatus. Denies any episodes of vomiting, nausea, lightheadedness. Review of Systems Review of Systems: see HPI Physical Exam Physical Exam: Gen- she is awake alert oriented x3 pleasant no distress. HEENT- normocephalic atraumatic mucous membranes moist. CV- Cardio is regular without rubs murmurs or gallops. Pulm- Lungs are clear to auscultation bilaterally no rales rhonchi wheeze with good effort. GI- Abdomen is soft, non distended. Normoactive bowel sounds in all 4 quadrants. Mild tenderness in the midline of the lower quadrants. Extremities- Extremities without sinus clubbing or edema no calf tenderness. Skin- Skin shows no rashes no pallor or icterus. Neuro- CN II- XII grossly intact. Psych- Mental status shows good reasonable recall normal mood and affect good judgment and insight. Results & Data Results & [facility] Vital Signs (Past 12 Hours) Vital Signs Temp Pulse Resp BP Pulse Ox 08/14/21 07:32 37.0 C 68 18 147/83 H 98 08/14/21 00:09 36.6 C 61 16 133/79 99
[2021-08-14] MEDS: ENOXAPARIN INJ 30 MG/0.3 ML SYR SQ SCH (11:38)
--- NOTE | 2021-08-14 17:51 | Discharge Summary ---
Date of Service August 14, 2021 Admission HPI Per Admitting Provider Patient is a very pleasant 66-year-old female who notes that since Thursday she has had worsening of abdominal pain nausea and vomiting. At first she was trying to wait it out at home, then through the day yesterday whenever she was not really able to keep much of anything down she started become more concerned, and then today whenever she still had pain nausea and vomiting she decided to seek care. Here in the ER she was found to have findings consistent with a small bowel obstruction we were asked to admit for further management. She denies any other symptoms at all, no fevers chills sweats, no respiratory symp toms, no symptoms at all other than the abdominal pain nausea vomiting. She is in the middle of initiation of chemotherapy for leiomyosarcoma of the uterusshe had a hysterectomy about 3 months ago, and was recommended for postoperative therapyshe is to have a port placed this week and chemo to start shortly thereafter, echocardiogram tomorrow. She was not sure if she wanted to follow through with the chemotherapy given that pathologically the tumor was entirely removed. She relates that her understanding of the main reason for the therapy was due to concern of potential seeding of malignancy. She also notes that even if she was to follow through with therapy, she would like to wait another week or 2 due to a series of stressful events in her life that have recently occurred Principal Diagnosis Small bowel obstruction Discharge Exam Constitutional WD/WN, vitals as above Eyes + anicteric sclerae Neck trachea midline, no thyromegaly Respiratory normal respiratory effort, lungs clear to auscultation Cardiovascular RRR, no murmur, no edema Gastrointestinal (Abdomen) Inspection/Auscultation: abdomen normal to inspection and normal bowel sounds Percussion/Palpation: + abdomen tender (mild diffuse) Musculoskeletal Head/Neck/Chest: normocephalic and head atraumatic Skin no rashes, warm and dry Neurologic moves all extremities Psychiatric A+Ox3, euthymic affect Discharge Data Allergies Allergy/AdvReac Type Severity Reaction Status Date / Time egg Allergy Intermediate "INFLAMMATORY Verified 08/08/21 13:58 REACTION" milk Allergy Intermediate "dairy Verified 08/08/21 13:58 products" - "INFLAMMATORY REACTION" levofloxacin [From Levaquin] AdvReac Intermediate "didn't Verified 08/08/21 13:58 feel well." Consultations 08/11/21 09:04 ED Decision to Admit Stat Procedures Performed Operation Date: 08/14/21 12:00 <No data on this case meets the specified criteria> Ordered Studies 08/11/21 06:40 CT abd pelvis wo con Urgent 08/11/21 11:19 US pelvic limited Routine Hospital Course (1) SBO (small bowel obstruction): Small bowel obstruction - Most likely etiology is adhesional. Patient has history of 2 abdominal surgeries; appendectomy was 10-20 years ago per patient extensive adhesions noted by surgeon during recent hysterectomy. Although patient has history of malignancy, CT scan without findings of metastatic burden. -Conservative management without surgical consultation during this hospitalization - NPO on admission. Ice chips in moderation - 08/13: Upgrade diet to clear liquids - 08/14: Transition to full liquids for breakfast followed by soft bland diet for lunch/dinner and tolerated well. - IV Fluids on LR solution - 08/12: Glucose 54; hypoglycemic protocol ordered - 08/13: Continue to monitor with advancing diet - Pain control - Tylenol 1000mg IV PRN - Nausea control - Zofran PRN (2) Leiomyosarcoma of uterus: - S/p hysterectomy, following with oncology, plans for chemotherapy in the near future (3) Soft tissue lesion of pelvic region: - Incidental complex cystic structure identified on CT with follow-up pelvic ultrasound recommended - Pelvic U/S: A 4.4 x 4.4 x 3.8 cm complex cystic lesion within the left lower quadrant. This is indeterminate could and represent a complex cystic lesion within the residual left ovary, postoperative seroma/lymphocele, or abscess. -Given bilateral oophrectomy, highly suspect post-operative seroma - Suggest post-discharge follow-up with OBGYN (4) DVT prophylaxis: Lovenox -Patient declined on several occasions. (5) Hepatitis C test positive: Hepatitis C screen came back positive, at the time of discharge her RNA load had not returned. Diet: Low fiber Dispo: Home/self-care Code Status: Full Total Time Total Time Spent Total Time Spent (In Minutes): 30 Discharge Plan Discharge Items Patient Disposition: Home - Self-Care Reason For Visit: SBO Discharge Diagnosis: Small bowel obstruction Activity: Per Instructions section Non-emergency contact: Primary Care Provider Call non-emergency contact if: you have any medication questions and your symptoms worsen Follow-up/Referrals: Maranda Hernandez MD [Primary Care Provider] - Diet: Low Fiber Addtl Attending Provider Instructions: You were seen in the hospital with regards to GI upset. While you are here imaging revealed that you had a small bowel obstruction. A small bowel obstruction is caused when something in the abdomen such as scar tissue can cause twisting of the bowel which prevents food from passing that point resulting in nausea and vomiting with a decrease in bowel movements. While you were here you were monitored conservatively and as your small bowel obstruction resolved you were slowly re-fed you starting off with clear liquids and titrated up to a low fiber diet at the time of your discharge. At this time we feel it is safe for you to go home as you have tolerated food well and your pain has decreased significantly. We recommend at this time for the next week you continue a low fiber diet to help keep your stools soft and almost liquid to not allow the small bowel obstruction to recur. After a week of doing low fiber diet you may return to your regular diet. Please follow-up with your primary care provider within 1 week. If you begin having symptoms of nausea, vomiting, reduced stool counts, abdominal pain, or fevers please return to the emergency room for reevaluation. Additionally while you were here, a screening test for hepatitis C was performed which did come back positive. This indicates at some point in your life you were exposed to the hepatitis C virus. To see if this is an active infection a test called hepatitis C RNA quant was ordered. This was pending at the time of your discharge, we will call you with the results and determine the next course of action based off of those results. At this time based off of your history and your lab work, it is likely that this is a chronic infection and no further intervention will need to be done, but we will let you know whenever those results return. Is been a pleasure to be a part of your care and we wish you the best in both your health and your recovery. Pending Studies at Discharge: Yes Studies:: Hepatitis C RNA quantity Stand-Alone Forms: My [facility] Modular Patterns, Smoking Cessation Medications and DC Order Prescriptions: Continued omega-3 acid ethyl esters [Lovaza] 1 gram capsule 1 cap PO QAM RF: 0 cholecalciferol (vitamin D3) 50 mcg (2,000 unit) capsule 50 mcg PO DAILY RF: 0 thyroid (pork) 60 mg tablet 60 mg PO QAM RF: 0 eszopiclone [Lunesta] 3 mg Tablet 3 mg PO HS RF: 0 Discharge Orders: Discharge Order (Routine); Ordered 08/14/21 Ordered By: Alissa Urias/Other Patient Handouts: Small Bowel Obstruction, Low-Fiber Diet Admission Data Admit Date/Time: 08/11/21 09:11 Attending Provider: Oswaldo Mays Admit Provider: Blayne Gupta Primary Care Provider: Maranda Hernandez Other Providers: Blayne Gupta Other Interventions: Discharge Summary Assessment (RN) Last Done: 08/14/21 17:59 Supervising Physician Co-Signing Physician Notes The patient is feeling much better overall. She had a bowel movement yesterday and a more normal bowel movement on the day of discharge. She had gradually increased diet which he tolerated throughout the day. Patient was ambulatory both around the palm and into the outdoor [facility]. Exam Alert and oriented. Heart regular Lungs clear with nonlabored respirations Abdomen generally soft and nontender, very minimal tenderness in the left lower quadrant. Bowel sounds are auscultated, normal active. Small bowel obstruction, suspect adhesional Resolved with conservative measures Discussed gradual increase in diet when she returns home Discussed signs and symptoms of recurrent bowel obstruction and things for which she should contact her PCP and/or return to the emergency department Else as noted above
[2021-08-16 07:36] LABS: Hepatitis C Vira RNA (Log) PCR <1.18 NOT DETECTED Log IU/mL (NOT DETECTED); Hepatitis C Viral RNA by PCR <15 NOT DETECTED IU/mL (NOT DETECTED)
== END 2021-08-14 19:20 | disposition home or self-care (01) | DRG 389 ==
LOC: ED 05:33 → INTOOBSV 09:11 → SUATTDRO 09:11 → 3N 09:11
DX: Z90.710 Acquired absence of both cervix and uterus; K56.609 Unspecified intestinal obstruction, unspecified as to partial versus complete obstruction; N99.842 Postprocedural seroma of a genitourinary system organ or structure following a genitourinary system procedure; C55 Malignant neoplasm of uterus, part unspecified; B19.20 Unspecified viral hepatitis C without hepatic coma; Z91.011 Allergy to milk products; Z79.890 Hormone replacement therapy; J44.9 Chronic obstructive pulmonary disease, unspecified; E03.9 Hypothyroidism, unspecified; Z91.012 Allergy to eggs

== ENCOUNTER 2022-12-23 16:38 | Inpatient (IN) ==
--- NOTE | 2022-12-23 17:51 | History & Physical Report ---
Date of Service December 23, 2022 Assessment & Plan (1) SBO (small bowel obstruction): Plan: Unfortunately she was only able to stay out of hospital for a week. XR and history again suggestive of small bowel obstruction which is likely to continue to return with increasing frequency. I am unclear if there are any further options moving forward with this will consult her oncologist to for continued goals of care talks Could consider venting g-tube with TPN for nutrition. TPN could be considered if she is not going on hospice care anyway given how prolonged this small bowel obstruction has been but this should clearly be discussed depending on the prognosis overall of her cancer. For now will continue to treat conservatively as we had been doing with NPO, IV fluids, scheduled acetaminophen IV for pain, Morphine PRN if this is not effective. 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 67 year old female with leiomyosarcoma with peritoneal metastasis and recent small bowel obstruction who [facility] as [facility] with abdominal pain, nausea, vomiting. She does note having a bowel movement this morning without hematochezia or melena. She feels these are the exact same symptoms she had with her recent small bowel obstruction. No new urinary complaints, she usually has some dysuria. No fever, chills, respiratory complaints. She has not previously had a discussion regarding TPN or G-tube for venting. SHe notes mild heartburn from the vomiting. Allergies Allergy/AdvReac Type Severity Reaction Status Date / Time egg Allergy Intermediate "INFLAMMATORY Verified 12/22/22 10:38 REACTION" levofloxacin [From Levaquin] AdvReac Intermediate "didn't Verified 12/22/22 10:38 feel well." Home Medications Medication Instructions Recorded Confirmed Type omega-3 acid ethyl esters 1 gram 1 cap PO QAM 02/15/21 12/22/22 History capsule (Lovaza) thyroid (pork) 60 mg tablet 60 mg PO QAM 02/20/21 12/22/22 History ([place] Thyroid) cholecalciferol (vitamin D3) 50 50 mcg PO QAM 08/06/21 12/22/22 History mcg (2,000 unit) capsule eszopiclone 3 mg tablet (Lunesta) 3 mg PO HS 08/11/21 12/22/22 History cyanocobalamin (vitamin B-12) 1,000 mcg subcut WK 11/28/22 12/22/22 History 1,000 mcg/mL injection solution ascorbic acid (vitamin C) 500 mg 500 mg PO DAILY 12/08/22 12/22/22 History tablet (Vitamin C) alprazolam 0.25 mg tablet 0.25 mg PO Q8 PRN Anxiety 12/13/22 12/22/22 History Past Med/Surg History Medical History Anxiety HIGH STRESS LEVEL OVER PAST FEW MONTHS, MULTIPLE DEATHS OF LOVED ONES IN THE PAST YR COPD (chronic obstructive pulmonary disease) NO CURRENT MEDS Family history of reaction to anesthesia MOM - SLOW TO WAKE UP Hepatitis HX HEPATITIS B History of anesthesia reaction "OVERLY SENSITIVE TO" - SLOW TO WAKE UP History of rheumatic fever Hypothyroidism Leiomyosarcoma of uterus (~03/2021) S/p hysterectomy and current chemo Lyme disease Fall 2020 Maintenance chemotherapy Currently receiving chemotherapy, last treatment 09/23/21. Mitral valve prolapse syndrome Per ECHO 07/2021 - MV normal in structure and function. Trace MR Port-A-Cath in place (10/02/21) Insertion Access Port, Left Internal Jugular, with Fluoroscopy(Left) - Arthur Presley DO, FACS SBO (small bowel obstruction) Admitted 08/11/21 to 08/14/21 at [facility] - etiology likely adhesional per discharge summary Snores ORAL APPLIANCE, NO HX SLEEP STUDY Spinal arachnoid cyst Surgical History H/O carotid endarterectomy [facility] [place] 1982 H/O: hysterectomy Robotic Assisted Laparoscopic hysterectomy, Bilateral Salpingo-oopherectomy History of colonoscopy History of dilatation and curettage last 03/11/21 @ [place] with Dr. Schmitz History of parotid gland excision S/P appendectomy HX S/P tonsillectomy HX S/P wisdom tooth extraction HX Family History Father Heart disease Grandfather (Paternal) No problems noted. Grandfather (Maternal) No problems noted. Grandmother Colorectal cancer Mother Family history of colonic polyps History of anesthesia reaction overly sensitive to anesthesia Stroke Social History Smoking Status: Never smoker Second Hand Exposure: No; Do You Dip or Chew Tobacco: No; Tobacco Cessation Education Requested by Patient: No Hx Alcohol Use: No Hx Substance Use: No Preferred Language: Vietnamese Communication Ability: Effective Visual Impairment: No Limitations Gy[place]um Block Setter Required: No Beliefs That Will Affect Care: None marital status: Current Living Situation: Spouse Current Living Situation Comment: With . current occupational status: retired How many Children do You have: 0 Other Information That Helps Us Care for You: No Feels Safe at Home: Yes Safety Concerns: Feels Safe At This Time Diet: regular Diet Comment: Juicing, raw vegetables, healthy choices during the past year weight has: remained stable Assistive Devices: Glasses Review of Systems Review of Systems: All systems reviewed & are unremarkable except as noted in HPI & below Physical Exam Constitutional: well developed; + not well nourished and no acute distress Eyes: PERRL, conjunctivae normal, anicteric sclerae Respiratory: normal respiratory effort, lungs clear to auscultation Cardiovascular: RRR, no murmur, no edema Gastrointestinal (Abdomen): Inspection/Auscultation: + abdomen distended and + hypoactive bowel sounds (very few) Percussion/Palpation: + abdomen tender (mild suprapubic) and abdomen soft; no guarding and abdomen not rigid Musculoskeletal: no cyanosis or clubbing, extremities motor strength 5/5 Skin: no rashes, warm and dry Neurologic: moves all extremities and awake; not confused Psychiatric: A+Ox3, euthymic affect Genitourinary: no CVA tenderness Results & Data Results & Data Laboratory Results Abnormal lab results 12/23/22 12/23/22 Range/Units 18:59 18:59 RBC 2.82 L (4.20-5.40) M/uL Hgb 8.5 L (12.0-16.0) g/dl Hct 26.9 L (37.0-47.0) % MCHC 31.6 L (32.0-36.0) g/dL RDW Std Deviation 46.9 H (36.4-46.3) fL Reticulocyte % (Auto) 4.3 H (0.5-2.0) % Lymph # (Auto) 0.63 L (1.20-3.40) K/uL Reticulocyte # 0.12 H (0.02-0.10) 10^6/uL Creatinine 0.40 L (0.6-1.2) mg/dl BUN/Creatinine Ratio 22.5 H (10-20) Calcium 8.2 L (8.6-10.3) mg/dl Phosphorus 2.4 L (2.5-4.9) mg/dl TIBC 221 L (250-450) mcg/dl Total Protein 4.9 L (6.0-8.3) gm/dl Albumin 3.0 L (3.4-5.0) gm/dl Globulin 1.9 L (2.5-4.0) gm/dl Diagnostic Findings KUB HISTORY: Small bowel obstruction. Follow-up. COMPARISON: KUB 12/17/2022. Abdomen and pelvis CT 12/13/2022. FINDINGS: Mildly dilated gas-filled loops of small bowel are again seen within t he abdomen. These measure up to 3.7 cm in diameter. This is similar to the prior study. [id number] fecal retention again noted. No renal calculi. No ureteral calculi. Calcifications in the deep pelvis likely represent phleboliths. No pneumoperitoneum or pneumatosis. IMPRESSION: Persistent small bowel obstruction pattern. Code Status & VTE Plan Code Status DNR/DNI VTE Prophylaxis Plan VTE Prophylaxis will be ordered: Yes PG Care Time/CCT Total # of Minutes Spent Total Time Spent with Patient: Total time spent is greater than 50% in coordination of care (as documented) at patient's floor/unit and/or counseling patient: Coding Level of Care Code 66992 INT INP/OBS CARE 3/75MIN Diagnoses SBO (small bowel obstruction) K56.609 GERD (gastroesophageal reflux disease) K21.9 Leiomyosarcoma of uterus C55 Hydronephrosis N13.30 Vaginal bleeding N93.9 Port-A-Cath in place Z95.828 Hypothyroidism E03.9
[2022-12-23] MEDS ORDERED: HYDROmorphone INJ 0.5 MG/0.5 ML SYR IV PRN ×2 (18:17)
[2022-12-23] MEDS ORDERED: ONDANSETRON INJ 2 MG/ML 2 ML VIAL IV PRN (18:35)
[2022-12-23] MEDS: ACETAMINOPHEN 1,000 MG/100 ML VIAL IV SCH (19:03)
[2022-12-23] MEDS: D5W AND LACTATED RINGERS 1,000 ML IV SCH (19:05)
[2022-12-23] MEDS ORDERED: PANTOprazole 40 MG in SYRINGE 0 ML IV STA (19:29)
--- NOTE | 2022-12-23 19:38 | XRay Report ---
KUB HISTORY: Small bowel obstruction. Follow-up. COMPARISON: KUB 12/17/2022. Abdomen and pelvis CT 12/13/2022. FINDINGS: Mildly dilated gas-filled loops of small bowel are again seen within the abdomen. These dottie sure up to 3.7 cm in diameter. This is similar to the prior study. [id number] fecal retention a gain noted. No renal calculi. No ureteral calculi. Calcifications in the deep pelvis likely represen t phleboliths. No pneumoperitoneum or pneumatosis. IMPRESSION: Persistent small bowel obstruction pattern. ACT 112: Negative or not required by law. Electronically signed by: Kevin Gallardo M.D. 12/23/2022 7:36 PM
[2022-12-23 19:52] LABS: Basophils # (auto) 0.02 K/uL (0.00-0.20); Basophils % (auto) 0.3 %; Eosinophils # (auto) 0.02 K/uL (0.00-0.50); Eosinophils % (auto) 0.3 %; Hematocrit (blood only) 26.9 % (37.0-47.0); Hemoglobin 8.5 g/dl (12.0-16.0); Immature Granulocytes # (auto) 0.02 K/uL (0.01-0.20); Immature Granulocytes % (auto) 0.3 %; Lymphocytes # (auto) 0.63 K/uL (1.20-3.40); Lymphocytes % (auto) 10.2 %; Mean Corpuscular Hemoglobin 30.1 pg (25.0-34.0); Mean Corpuscular Hgb Conc 31.6 g/dL (32.0-36.0); Mean Corpuscular Volume 95.4 fL (80.0-100.0); Mean Platelet Volume 9.6 fL (9.4-12.4); Monocytes # (auto) 0.37 K/uL (0.11-0.59); Neutrophils # (auto) 5.14 K/uL (1.40-6.50); Neutrophils % (auto) 82.9 %; Platelet Count 336 K/uL (130-400); RDW Coefficient of Variation 14.1 % (11.5-14.5); RDW Standard Deviation 46.9 fL (36.4-46.3); Red Blood Count 2.82 M/uL (4.20-5.40); Reticulocyte % 4.3 % (0.5-2.0); Reticulocytes # 0.12 10^6/uL (0.02-0.10)
[2022-12-23 19:57] LABS: Albumin Globulin Ratio 1.6 (0.9-2); BUN Creatinine Ratio 22.5 (10-20); Bilirubin,Total 0.3 mg/dl (0.2-1.0); Calcium 8.2 mg/dl (8.6-10.3); Creatinine Clr Calc Pharmacy 107.5 ml/min; Est GFR (African American) 125.8 ml/min; Est GFR (Non-African American) 108.5 ml/min; Globulin 1.9 gm/dl (2.5-4.0); Magnesium 1.7 mg/dl (1.7-2.4); Phosphorus 2.4 mg/dl (2.5-4.9); Potassium 3.6 mmol/L (3.5-5.1); Total Protein 4.9 gm/dl (6.0-8.3)
[2022-12-23] MEDS ORDERED: MAGNESIUM SULFATE / D5W 1 GM/100 ML BAG IV ONE (20:00)
[2022-12-23 20:15] LABS: Ferritin 431.5 ng/ml (8-388)
[2022-12-23 20:28] LABS: Folate (Folic Acid),Ser orPlas > 22.30 ng/ml (>5.38)
[2022-12-23 20:29] LABS: Vitamin B12 678 pg/ml (180-914)
[2022-12-23] MEDS: POTASSIUM CHLORIDE / WTR 10 MEQ/100 ML PLCT IV SCH ×2 (21:05→22:42)
[2022-12-23] MEDS: LORazepam 2 MG/1 ML VIAL IV PRN (21:10)
[2022-12-23 21:57] LABS: Appearance Urine Clear (Clear); Bacteria Urine Automated Negative (Negative); Bilirubin Urine Negative (Negative); Blood Urine Trace (Negative); Color Urine Yellow; Epithelial Cell Urine Auto >30 /lpf (0-5); Glucose Urine UA Negative (Negative); Ketones Urine 3+ (Negative); Leukocyte Esterase Urine 1+ (Negative); Nitrite Urine Negative (Negative); Protein Urine 2+ (Negative); Specific Gravity Urine 1.017 (1.000-1.030); Urobilinogen Urine Negative (Negative); WBC Urine Automated >30 /hpf (0-5); pH Urine 6.5 (4.5-7.5)
[2022-12-24] MEDS: ACETAMINOPHEN 1,000 MG/100 ML VIAL IV SCH ×3 (02:05→18:47)
[2022-12-24] MEDS: D5W AND LACTATED RINGERS 1,000 ML IV SCH ×3 (03:31→21:13)
[2022-12-24 06:38] LABS: Basophils # (auto) 0.02 K/uL (0.00-0.20); Basophils % (auto) 0.5 %; Eosinophils # (auto) 0.08 K/uL (0.00-0.50); Eosinophils % (auto) 1.9 %; Hematocrit (blood only) 23.7 % (37.0-47.0); Hemoglobin 7.4 g/dl (12.0-16.0); Immature Granulocytes # (auto) 0.03 K/uL (0.01-0.20); Immature Granulocytes % (auto) 0.7 %; Lymphocytes # (auto) 0.59 K/uL (1.20-3.40); Lymphocytes % (auto) 13.8 %; Mean Corpuscular Hemoglobin 30.2 pg (25.0-34.0); Mean Corpuscular Hgb Conc 31.2 g/dL (32.0-36.0); Mean Corpuscular Volume 96.7 fL (80.0-100.0); Mean Platelet Volume 9.6 fL (9.4-12.4); Monocytes # (auto) 0.28 K/uL (0.11-0.59); Monocytes % (auto) 6.5 %; Neutrophils # (auto) 3.28 K/uL (1.40-6.50); Neutrophils % (auto) 76.6 %; Platelet Count 262 K/uL (130-400); RDW Coefficient of Variation 14.5 % (11.5-14.5); RDW Standard Deviation 48.6 fL (36.4-46.3); Red Blood Count 2.45 M/uL (4.20-5.40); White Blood Count 4.28 K/ul (4.8-10.8)
--- NOTE | 2022-12-24 06:59 | Oncology Consultation ---
Date of Consultation December 24, 2022 Assessment & Plan (1) SBO (small bowel obstruction): (2) Leiomyosarcoma of uterus: Plan Very pleasant female with metastatic leiomyosarcoma of the uterus who presented with recurrent small bowel bowel obstruction likely due to extrinsic compression from tumor. -She is very aware of extremely poor prognosis of metastatic leiomyosarcoma of the uterus. I have had multiple discussions with her over the past couple of months regarding supportive care/hospice or systemic chemotherapy. Patient had previously declined systemic chemotherapy but is now considering receiving treatment with low-dose doxorubicin. She is aware that we would not be able to give chemotherapy if bowel obstruction does not improve and surgery to relieve obstruction is not an option. Agree with bowel rest at this time. Consider surgical evaluation if bowel obstruction persists despite bowel rest. -Regarding anemia, would recommend transfusing for hemoglobin less than 7.5. Consider giving 2 units PRBC transfusion if hemoglobin tomorrow morning is less than 7. Thank you for this consult. Oncology will continue following patient while in the hospital. Please feel free to call if you have any further questions History of Present Illness Reason for Consultation: Metastatic leiomyosarcoma of the uterus Attending Physician: Trevor Boykin MD History of Present Illness Ms. aden is a very pleasant female with metastatic leiomyosarcoma of the uterus for which she has received multiple lines of treatment including adjuvant gemcitabine/docetaxel which was discontinued early due to toxicities and was most recently on pazopanib with disease progression. She was recently dis charged from [facility] after being admitted for bowel obstruction likely due to extrinsic compression from metastatic lesions. Has been getting palliative radiation treatment to vaginal cuff lesion due to persistent vaginal bleeding with resultant anemia for which she has required IV iron infusions PRBC transfusions. Was directly admitted yesterday after she had presented to [facility] with complaints of abdominal pain, nausea, vomiting and constipation suspicious for recurrent small bowel obstruction. Since admission, she has not had any bowel movements. States that nausea and vomiting has resolved. Currently being managed conservatively. Allergies Allergy/AdvReac Type Severity Reaction Status Date / Time egg Allergy Intermediate "INFLAMMATORY Verified 12/22/22 10:38 REACTION" levofloxacin [From Levaquin] AdvReac Intermediate "didn't Verified 12/22/22 10:38 feel well." Home Medications Medication Instructions Recorded Confirmed Type omega-3 acid ethyl esters 1 gram 1 cap PO QAM 02/15/21 12/22/22 History capsule (Lovaza) thyroid (pork) 60 mg tablet 60 mg PO QAM 02/20/21 12/22/22 History ([place] Thyroid) cholecalciferol (vitamin D3) 50 50 mcg PO QAM 08/06/21 12/22/22 History mcg (2,000 unit) capsule eszopiclone 3 mg tablet (Lunesta) 3 mg PO HS 08/11/21 12/22/22 History cyanocobalamin (vitamin B-12) 1,000 mcg subcut WK 11/28/22 12/22/22 History 1,000 mcg/mL injection solution ascorbic acid (vitamin C) 500 mg 500 mg PO DAILY 12/08/22 12/22/22 History tablet (Vitamin C) alprazolam 0.25 mg tablet 0.25 mg PO Q8 PRN Anxiety 12/13/22 12/22/22 History Patient History Medical History Anxiety HIGH STRESS LEVEL OVER PAST FEW MONTHS, MULTIPLE DEATHS OF LOVED ONES IN THE PAST YR COPD (chronic obstructive pulmonary disease) NO CURRENT MEDS Family history of reaction to anesthesia MOM - SLOW TO WAKE UP Hepatitis HX HEPATITIS B History of anesthesia reaction "OVERLY SENSITIVE TO" - SLOW TO WAKE UP History of rheumatic fever Hypothyroidism Leiomyosarcoma of uterus (~03/2021) S/p hysterectomy and current chemo Lyme disease Fall 2020 Maintenance chemotherapy Currently receiving chemotherapy, last treatment 09/23/21. Mitral valve prolapse syndrome Per ECHO 07/2021 - MV normal in structure and function. Trace MR Port-A-Cath in place (10/02/21) Insertion Access Port, Left Internal Jugular, with Fluoroscopy(Left) - Arthur Presley DO, FACS SBO (small bowel obstruction) Admitted 08/11/21 to 08/14/21 at [facility] - etiology likely adhesional per discharge summary Snores ORAL APPLIANCE, NO HX SLEEP STUDY Spinal arachnoid cyst Surgical History [place] [facility] [place]: hysterectomy Robotic Assisted Laparoscopic hysterectomy, Bilateral Salpingo-oopherectomy History of colonoscopy History of dilatation and curettage last 03/11/21 @ [place] with Dr. Schmitz History of parotid gland excision S/P appendectomy HX S/P tonsillectomy HX S/P wisdom tooth extraction HX Family History Father Heart disease Grandfather (Paternal) No problems noted. Grandfather (Maternal) No problems noted. Grandmother Colorectal cancer Mother Family history of colonic polyps History of anesthesia reaction overly sensitive to anesthesia Stroke Social History Smoking Status: Never smoker Second Hand Exposure: No; Do You Dip or Chew Tobacco: No; Tobacco Cessation Education Requested by Patient: No Hx Alcohol Use: No Hx Substance Use: No Preferred Language: Frisian Communication Ability: Effective Visual Impairment: No Limitations Sales Promotion Manager Required: No Beliefs That Will Affect Care: None marital status: Current Living Situation: Spouse Current Living Situation Comment: With . current occupational status: retired How many Children do You have: 0 Other Information That Helps Us Care for You: No Feels Safe at Home: Yes Safety Concerns: Feels Safe At This Time Diet: regular Diet Comment: Juicing, raw vegetables, healthy choices during the past year weight has: remained stable Assistive Devices: Glasses
[2022-12-24 07:01] LABS: Albumin Globulin Ratio 1.6 (0.9-2); Albumin Level 2.4 gm/dl (3.4-5.0); BUN Creatinine Ratio 18.8 (10-20); Bilirubin,Total 0.3 mg/dl (0.2-1.0); Calcium 7.5 mg/dl (8.6-10.3); Creatinine Clr Calc Pharmacy 89.5 ml/min; Est GFR (African American) 118.5 ml/min; Est GFR (Non-African American) 102.2 ml/min; Globulin 1.5 gm/dl (2.5-4.0); Magnesium 1.7 mg/dl (1.7-2.4); Phosphorus 1.9 mg/dl (2.5-4.9); Potassium 3.7 mmol/L (3.5-5.1); Total Protein 3.9 gm/dl (6.0-8.3)
[2022-12-24 07:36] LABS: Polychromasia 2+
[2022-12-24] MEDS: PANTOprazole 40 MG in SYRINGE 0 ML IV SCH (12:02)
--- NOTE | 2022-12-24 12:38 | Hospitalist Progress Note ---
Date of Service December 24, 2022 Assessment & Plan (1) SBO (small bowel obstruction): Plan: -Patient has a history of leiomyosarcoma of uterus with mets to the peritoneum causing her recurrent small bowel obstruction. -Was discharged from the hospital about 5 days ago -Unfortunately she was only able to stay out of hospital for a week. -XR and history again suggestive of small bowel obstruction which is likely to continue to return with increasing frequency. -I am unclear if there are any further options moving forward with this will consult her oncologist to for continued goals of care talks -Could consider venting g-tube with TPN for nutrition. TPN could be considered if she is not going on hospice care anyway given how prolonged this small bowel obstruction has been but this should clearly be discussed depending on the prognosis overall of her cancer. -During her last admission, surgery was consulted however no surgical plans for now -Patient passing gas however no bowel movement -Repeat KUB (2) GERD (gastroesophageal reflux disease): Plan: Pantoprazole 40mg IV daily Not clear she needs this on discharge as suspect just due to vomiting (3) Leiomyosarcoma of uterus: Plan: with peritoneal mets suspected causing her recurrent SBO There may be plans for palliative radiotherapy (4) Hydronephrosis: Plan: Chronic, Cr at baseline, no acute intervention required (5) Vaginal bleeding: Plan: Continue to monitor hemoglobin (6) Port-A-Cath in place: (7) Hypothyroidism: Plan: TSH WNL December 15 Restart thyroid medication when able to take liquids Plan Continue hospitalization Monitor hemoglobin Admission and Anticipated Discharge Date Admission Date: December 23, 2022 Subjective patient seen and examined, is worried about making her Urology appointment today, however, does not want to be discharged from the [facility] Review of Systems Review of Systems: All systems reviewed are negative, apart from the ones contained in the history. Physical Exam Physical Exam: The patient is awake, alert and oriented 3, well developed and well nourished, normocephalic and atraumatic, lying in bed and in no acute distress. HEENT--PERRL, EOMI, mucous membranes and oropharynx mildly dry Neck--supple. No JVD. No bruits. Thyroid normal, trachea midline, no adenopathy. Heart--normal S1 and S2. No murmurs, rubs or gallops. Lungs--clear bilaterally, no respiratory distress, no accessory muscle use. Abdomen--normal bowel sounds and soft. Mild epigastric and left sided abdominal pain Extremities--no cyanosis or clubbing. No edema. Dermatologic--normal skin turgor, normal color, no abnormal lymph nodes, no rash. Neurologic--cranial nerves II through XII grossly intact. Rheumatologic--normal range of motion. Psychiatric--normal affect. Results & Data Results & Data Vital Signs (Past 12 Hours) Vital Signs Temp Pulse Resp BP Pulse Ox O2 Del Method 12/24/22 07:23 97.5 F L 73 14 106/66 100 Room Air PG Care Time/CCT Total # of Minutes Spent Total Time Spent with Patient: Total time spent is greater than 50% in coordination of care (as documented) at patient's floor/unit and/or counseling patient: Coding Level of Care Code 79014 SUB INP/OBS CARE 2/35MIN Diagnoses SBO (small bowel obstruction) K56.609 GERD (gastroesophageal reflux disease) K21.9 Leiomyosarcoma of uterus C55 Hydronephrosis N13.30 Vaginal bleeding N93.9 Port-A-Cath in place Z95.828 Hypothyroidism E03.9 Time Spent (min) 35
--- NOTE | 2022-12-24 15:10 | XRay Report ---
XR KUB/Abdomen 1 view CLINICAL HISTORY: follow up TECHNIQUE: 1 view of the abdomen was obtained. Comparison: Comparison is made to abdomen radiograph 12/23/2022 FINDINGS: Lung bases are unremarkable. The osseous structures are grossly unremarkable. Gas distended loops of small bowel are seen. A moderate amount of stool is noted within the large bowel. IMPRESSION: Gas-distended loops of small bowel are unchanged from prior exam, compatible with recurrent small bow el obstruction similar to prior exam. ACT 112: Negative or not required by law. Electronically signed by: Juancarlos Botello M.D. 12/24/2022 3:08 PM
[2022-12-24] MEDS: LORazepam 2 MG/1 ML VIAL IV PRN (21:13)
[2022-12-25] MEDS: D5W AND LACTATED RINGERS 1,000 ML IV SCH ×2 (03:44→16:12)
[2022-12-25] MEDS: ACETAMINOPHEN 1,000 MG/100 ML VIAL IV SCH ×3 (03:44→18:26)
[2022-12-25 09:24] LABS: Hematocrit (blood only) 28.3 % (37.0-47.0); Hemoglobin 8.5 g/dl (12.0-16.0); Mean Corpuscular Hemoglobin 29.6 pg (25.0-34.0); Mean Corpuscular Volume 98.6 fL (80.0-100.0); Mean Platelet Volume 9.6 fL (9.4-12.4); Platelet Count 334 K/uL (130-400); RDW Coefficient of Variation 14.9 % (11.5-14.5); RDW Standard Deviation 51.8 fL (36.4-46.3); Red Blood Count 2.87 M/uL (4.20-5.40); White Blood Count 3.82 K/ul (4.8-10.8)
[2022-12-25 09:39] LABS: Calcium 7.6 mg/dl (8.6-10.3); Est GFR (African American) 116.9 ml/min; Est GFR (Non-African American) 100.9 ml/min; Potassium 3.8 mmol/L (3.5-5.1)
[2022-12-25] MEDS: PANTOprazole 40 MG in SYRINGE 0 ML IV SCH (10:22)
--- NOTE | 2022-12-25 13:46 | Hospitalist Progress Note ---
Date of Service December 25, 2022 Assessment & Plan (1) SBO (small bowel obstruction): Plan: -Patient has a history of leiomyosarcoma of uterus with mets to the peritoneum causing her recurrent small bowel obstruction. -Was discharged from the hospital about 5 days ago -Unfortunately she was only able to stay out of hospital for a week. -XR and history again suggestive of small bowel obstruction which is likely to continue to return with increasing frequency. -She went for palliative radiotherapy today, 12/25 -During her last admission, surgery was consulted however no surgical plans for now -Patient passing gas, having small amounts of BM -Repeat KUB shows still evidence of SBO -Patient now willing to consider g tube, for comfort -Will re consult surgery (2) GERD (gastroesophageal reflux disease): Plan: Pantoprazole 40mg IV daily Not clear she needs this on discharge as suspect just due to vomiting (3) Leiomyosarcoma of uterus: Plan: with peritoneal mets suspected causing her recurrent SBO Palliative radiation therapy started today, 12/25 (4) Hydronephrosis: Plan: Chronic, Cr at baseline, no acute intervention required (5) Vaginal bleeding: Plan: Continue to monitor hemoglobin (6) Port-A-Cath in place: (7) Hypothyroidism: Plan: TSH WNL December 15 Restart thyroid medication when able to take liquids Plan Continue hospitalization Monitor hemoglobin Admission and Anticipated Discharge Date Admission Date: December 23, 2022 Subjective patient seen and examined, back from radiation therapy. Now willing to consider G tube for comfort Review of Systems Review of Systems: All systems reviewed are negative, apart from the ones contained in the history. Physical Exam Physical Exam: The patient is awake, alert and oriented 3, well developed and well nourished, normocephalic and atraumatic, lying in bed and in no acute distress. HEENT--PERRL, EOMI, mucous membranes and oropharynx mildly dry Neck--supple. No JVD. No bruits. Thyroid normal, trachea midline, no adenopathy. Heart--normal S1 and S2. No murmurs, rubs or gallops. Lungs--clear bilaterally, no respiratory distress, no accessory muscle use. Abdomen--normal bowel sounds and soft. Mild epigastric and left sided abdominal pain Extremities--no cyanosis or clubbing. No edema. Dermatologic--normal skin turgor, normal color, no abnormal lymph nodes, no rash. Neurologic--cranial nerves II through XII grossly intact. Rheumatologic--normal range of motion. Psychiatric--normal affect. Results & Data Results & Data Vital Signs (Past 12 Hours) Vital Signs Temp Pulse Resp BP Pulse Ox O2 Del Method 12/25/22 07:19 97.9 F 75 14 118/74 98 Room Air PG Care Time/CCT Total # of Minutes Spent Total Time Spent with Patient: Total time spent is greater than 50% in coordination of care (as documented) at patient's floor/unit and/or counseling patient: Coding Level of Care Code 66493 SUB INP/OBS CARE 2/35MIN Diagnoses SBO (small bowel obstruction) K56.609 GERD (gastroesophageal reflux disease) K21.9 Leiomyosarcoma of uterus C55 Hydronephrosis N13.30 Vaginal bleeding N93.9 Port-A-Cath in place Z95.828 Hypothyroidism E03.9 Time Spent (min) 35
--- NOTE | 2022-12-25 14:46 | Palliative Care Consultation ---
Date of Consultation December 25, 2022 Assessment & Plan (1) Abdominal pain: with metastatic leiomyosarcoma and SBO Opioids are ordered but she is understandably reluctant to use these with known obstruction Continue IV tylenol She does not want NG tube. We did discuss option of venting gastrostomy tube for palliation. She is considering this option. Discussed with Dr. Boykin who will consult surgery. We talked extensively about palliative nature of procedure. She understands that if this were to happen she would not have any significant nutrient absorption. She did ask about artificial nutrition and has considered parenteral nutrition but does not think she would want that at this point. We talked about physiological changes with dehydration and ketosis to relieve her concerns about starvation. Abdominal location: generalized Qualified Code(s): R10.84 - Generalized abdominal pain (2) Vomiting: Currently controlled. Nausea presence: with nausea Vomiting type: unspecified Qualified Code(s): R11.2 - Nausea with vomiting, unspecified (3) Palliative care encounter: John and I have spoken extensively today and on her prior admission. She realizes that she is in the end stage of her disease. She had been hoping that she would be able to prolong her life for a little and is still considering possible treatment options. She feels that her family would want her to continue treatment. She however, feels that she does not have the quality of life that she'd like to have and is tired of pain and suffering. She has been very active and her debility is difficult for her. She has considered hospice care and asked about differences between hospice and palliative care which we reviewed. She asked about prognosis which is likely a few weeks at this time. I offered family meeting to help family understand her prognosis and wishes for her care. She will consider this and her options for care. Will follow. History of Present Illness Reason for Consultation: goals of care Requesting Physician: Dr. Boykin Attending Physician: Trevor Boykin MD History of Present Illness 67 yo lady with leiomyosarcoma of uterus and peritoneal metastases measuring up to 7.5 cm, who presents with recurrent small bowel obstruction. She was discharged last week for same. She complains of nausea, vomiting and abdominal pain. Nausea has improved. She has been receiving IV tylenol for abdominal pain pretty much every eight hours. Xray shows persistent small bowel obstruction with dilated loops of small bowel. She has been receiving radiation therapy for vaginal bleeding with vaginal cuff lesion. She did require transfusion on previous admission. Hemoglobin stable at this time, though she reports ongoing vaginal bleeding. Allergies Allergy/AdvReac Type Severity Reaction Status Date / Time egg Allergy Intermediate "INFLAMMATORY Verified 12/22/22 10:38 REACTION" levofloxacin [From Levaquin] AdvReac Intermediate "didn't Verified 12/22/22 10:38 feel well." Home Medications Medication Instructions Recorded Confirmed Type omega-3 acid ethyl esters 1 gram 1 cap PO QAM 02/15/21 12/22/22 History capsule (Lovaza) thyroid (pork) 60 mg tablet 60 mg PO QAM 02/20/21 12/22/22 History ([place] Thyroid) cholecalciferol (vitamin D3) 50 50 mcg PO QAM 08/06/21 12/22/22 History mcg (2,000 unit) capsule eszopiclone 3 mg tablet (Lunesta) 3 mg PO HS 08/11/21 12/22/22 History cyanocobalamin (vitamin B-12) 1,000 mcg subcut WK 11/28/22 12/22/22 History 1,000 mcg/mL injection solution ascorbic acid (vitamin C) 500 mg 500 mg PO DAILY 12/08/22 12/22/22 History tablet (Vitamin C) alprazolam 0.25 mg tablet 0.25 mg PO Q8 PRN Anxiety 12/13/22 12/22/22 History Patient History Medical History Anxiety HIGH STRESS LEVEL OVER PAST FEW MONTHS, MULTIPLE DEATHS OF LOVED ONES IN THE PAST YR COPD (chronic obstructive pulmonary disease) NO CURRENT MEDS Family history of reaction to anesthesia MOM - SLOW TO WAKE UP Hepatitis HX HEPATITIS B History of anesthesia reaction "OVERLY SENSITIVE TO" - SLOW TO WAKE UP History of rheumatic fever Hypothyroidism Leiomyosarcoma of uterus (~03/2021) S/p hysterectomy and current chemo Lyme disease Fall 2020 Maintenance chemotherapy Currently receiving chemotherapy, last treatment 09/23/21. Mitral valve prolapse syndrome Per ECHO 07/2021 - MV normal in structure and function. Trace MR Port-A-Cath in place (10/02/21) Insertion Access Port, Left Internal Jugular, with Fluoroscopy(Left) - Arthur Presley DO, FACS SBO (small bowel obstruction) Admitted 08/11/21 to 08/14/21 at [facility] - etiology likely adhesional per discharge summary Snores ORAL APPLIANCE, NO HX SLEEP STUDY Spinal arachnoid cyst Surgical History H/O carotid endarterectomy [facility] [place] H/O: hysterectomy Robotic Assisted Laparoscopic hysterectomy, Bilateral Salpingo-oopherectomy History of colonoscopy History of dilatation and curettage last 03/11/21 @ [place] with Dr. Schmitz History of parotid gland excision S/P appendectomy HX S/P tonsillectomy HX S/P wisdom tooth extraction HX Family History Father Heart disease Grandfather (Paternal) No problems noted. Grandfather (Maternal) No problems noted. Grandmother Colorectal cancer Mother Family history of colonic polyps History of anesthesia reaction overly sensitive to anesthesia Stroke Social History Smoking Status: Never smoker Second Hand Exposure: No; Do You Dip or Chew Tobacco: No; Tobacco Cessation Education Requested by Patient: No Hx Alcohol Use: No Hx Substance Use: No Preferred Language: Ugandan Communication Ability: Effective Visual Impairment: No Limitations Pharmacy Director Required: No Beliefs That Will Affect Care: None marital status: Current Living Situation: Spouse Current Living Situation Comment: With . current occupational status: retired How many Children do You have: 0 Other Information That Helps Us Care for You: No Feels Safe at Home: Yes Safety Concerns: Feels Safe At This Time Diet: regular Diet Comment: Juicing, raw vegetables, healthy choices during the past year weight has: remained stable Assistive Devices: Glasses Review of Systems Review of Systems: ESAS Pain 2/3 Dyspnea 0/3 Nausea 0/3 Drowsiness 0/3 Physical Exam Constitutional: + thin; no acute distress Respiratory: normal respiratory effort; no labored breathing Gastrointestinal (Abdomen): mild distension Musculoskeletal: Extremities: + muscle atrophy Neurologic: Speech / Cognition: normal cognition Results & Data Vital Signs (Past 12 Hours) Vital Signs Temp Pulse Resp BP Pulse Ox O2 Del Method 12/25/22 07:19 97.9 F 75 14 118/74 98 Room Air PG Care Time/CCT Total # of Minutes Spent Total Time Spent: 75 Total Time Spent with Patient: Total time spent is greater than 50% in coordination of care (as documented) at patient's floor/unit and/or counseling patient: goals of care, symptom management, patient education and support, coordination of care Coding Level of Care Code 38396 INT INP/OBS CARE 75MIN Diagnoses Abdominal pain R10.84 Abdominal location: generalized Vomiting R11.2 Nausea presence: with nausea Vomiting type: unspecified Palliative care encounter Z51.5
--- NOTE | 2022-12-25 15:53 | XCELERA ---
[id number] \\[id number]
[2022-12-25] MEDS: LORazepam 2 MG/1 ML VIAL IV PRN (21:50)
[2022-12-26] MEDS: D5W AND LACTATED RINGERS 1,000 ML IV SCH ×3 (00:25→10:19)
[2022-12-26] MEDS: ACETAMINOPHEN 1,000 MG/100 ML VIAL IV SCH ×3 (02:36→12:38)
[2022-12-26 06:18] LABS: BUN Creatinine Ratio 16.7 (10-20); Calcium 7.6 mg/dl (8.6-10.3); Creatinine Clr Calc Pharmacy 79.6 ml/min; Est GFR (Non-African American) 98.3 ml/min; Potassium 3.7 mmol/L (3.5-5.1)
[2022-12-26 06:23] LABS: Hematocrit (blood only) 26.8 % (37.0-47.0); Hemoglobin 8.4 g/dl (12.0-16.0); Mean Corpuscular Hemoglobin 30.4 pg (25.0-34.0); Mean Corpuscular Hgb Conc 31.3 g/dL (32.0-36.0); Mean Corpuscular Volume 97.1 fL (80.0-100.0); Mean Platelet Volume 9.8 fL (9.4-12.4); Platelet Count 297 K/uL (130-400); RDW Coefficient of Variation 15.3 % (11.5-14.5); RDW Standard Deviation 51.5 fL (36.4-46.3); Red Blood Count 2.76 M/uL (4.20-5.40); White Blood Count 4.13 K/ul (4.8-10.8)
[2022-12-26] MEDS ORDERED: HEPARIN 100 UNIT/ML 5ML FLUSH ONE (08:28)
[2022-12-26] MEDS: HEPARIN 100 UNIT/ML 5ML FLUSH FLUSH PRN ×4 (08:30→21:55)
[2022-12-26] MEDS: PANTOprazole 40 MG in SYRINGE 0 ML IV SCH (10:19)
--- NOTE | 2022-12-26 10:28 | Gastrointestinal Consultation ---
Date of Consultation December 26, 2022 Assessment & Plan (1) SBO (small bowel obstruction): I had discussed with the patient about the risks/benefits of a gastrostomy tube. We had a long discussion today about this. At this time it appears her SBO has resolved as she tells me she is tolerating liquids and passing gas/moving bowels. She has good bowel sounds on exam. She tells me that at this time she is not interested in having a peg tube placed but rather just wanted more information on this. She admits that she is not sure she wants much in the way of invasive testing/procedures. She is currently deciding on whether or not she wants to pursue palliative care services. Supervising Physician Co-Signing Physician Notes Agree with SANJEEV Rebolledo as above Abd: Soft, NT, slightly distended, +BS Continue current therapy and supportive care She does not wish to have PEG tube at this time. 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 She was discharged last week for an obstruction. She tells me she has had 3 admissions in the past year for this. When she was admitted she had nausea, vomiting and abdominal pain. These symptoms have resolved at this time and she is tolerating liquids and moving bowels/passing gas per patient. GI was consulted for discussion on possibility of a venting gastrostomy tube for palliation. Currently no other GI concerns. Allergies Allergy/AdvReac Type Severity Reaction Status Date / Time egg Allergy Intermediate "INFLAMMATORY Verified 12/22/22 10:38 REACTION" levofloxacin [From Levaquin] AdvReac Intermediate "didn't Verified 12/22/22 10:3 8 feel well." Home Medications Medication Instructions Recorded Confirmed Type omega-3 acid ethyl esters 1 gram 1 cap PO QAM 02/15/21 12/22/22 History capsule (Lovaza) thyroid (pork) 60 mg tablet 60 mg PO QAM 02/20/21 12/22/22 History ([place] Thyroid) cholecalciferol (vitamin D3) 50 50 mcg PO QAM 08/06/21 12/22/22 History mcg (2,000 unit) capsule eszopiclone 3 mg tablet (Lunesta) 3 mg PO HS 08/11/21 12/22/22 History cyanocobalamin (vitamin B-12) 1,000 mcg subcut WK 11/28/22 12/22/22 History 1,000 mcg/mL injection solution ascorbic acid (vitamin C) 500 mg 500 mg PO DAILY 12/08/22 12/22/22 History tablet (Vitamin C) alprazolam 0.25 mg tablet 0.25 mg PO Q8 PRN Anxiety 12/13/22 12/22/22 History Patient History Medical History Anxiety HIGH STRESS LEVEL OVER PAST FEW MONTHS, MULTIPLE DEATHS OF LOVED ONES IN THE PAST YR COPD (chronic obstructive pulmonary disease) NO CURRENT MEDS Family history of reaction to anesthesia MOM - SLOW TO WAKE UP Hepatitis HX HEPATITIS B History of anesthesia reaction "OVERLY SENSITIVE TO" - SLOW TO WAKE UP History of rheumatic fever Hypothyroidism Leiomyosarcoma of uterus (~03/2021) S/p hysterectomy and current chemo Lyme disease Fall 2020 Maintenance chemotherapy Currently receiving chemotherapy, last treatment 09/23/21. Mitral valve prolapse syndrome Per ECHO 07/2021 - MV normal in structure and function. Trace MR Port-A-Cath in place (10/02/21) Insertion Access Port, Left Internal Jugular, with Fluoroscopy(Left) - Arthur Presley DO, FACS SBO (small bowel obstruction) Admitted 08/11/21 to 08/14/21 at [facility] - etiology likely adhesional per discharge summary Snores ORAL APPLIANCE, NO HX SLEEP STUDY Spinal arachnoid cyst Surgical History [place] [facility] [place] hysterectomy Robotic Assisted Laparoscopic hysterectomy, Bilateral Salpingo-oopherectomy History of colonoscopy History of dilatation and curettage last 03/11/21 @ [place] with Dr. Schmitz History of parotid gland excision S/P appendectomy HX S/P tonsillectomy HX S/P wisdom tooth extraction HX Family History Father Heart disease Grandfather (Paternal) No problems noted. Grandfather (Maternal) No problems noted. Grandmother Colorectal cancer Mother Family history of colonic polyps History of anesthesia reaction overly sensitive to anesthesia Stroke Social History Smoking Status: Never smoker Second Hand Exposure: No; Do You Dip or Chew Tobacco: No; Tobacco Cessation Education Requested by Patient: No Hx Alcohol Use: No Hx Substance Use: No Preferred Language: Venezuelan Communication Ability: Effective Visual Impairment: No Limitations [employer] Required: No Beliefs That Will Affect Care: None marital status: Current Living Situation: Spouse Current Living Situation Comment: With . current occupational status: retired How many Children do You have: 0 Other Information That Helps Us Care for You: No Feels Safe at Home: Yes Safety Concerns: Feels Safe At This Time Diet: regular Diet Comment: Juicing, raw vegetables, healthy choices during the past year weight has: remained stable Assistive Devices: Glasses Review of Systems Review of Systems: All systems reviewed & are unremarkable except as noted in HPI & below Physical Exam Constitutional: WD/WN, vitals as above Respiratory: normal respiratory effort, lungs clear to auscultation Cardiovascular: RRR, no murmur, no edema Gastrointestinal (Abdomen): normal bowel sounds, soft, nontender, no hepatosplenomegaly Skin: no rashes, warm and dry Psychiatric: Orientation: alert and oriented x 3 Affect: euthymic affect Results & Data Vital Signs (Past 12 Hours) Vital Signs Temp Pulse Resp BP Pulse Ox O2 Del Method 12/26/22 07:27 97.3 F L 83 16 127/80 100 Room Air PG Care Time/CCT Total # of Minutes Spent Total Time Spent with Patient: Total time spent is greater than 50% in coordination of care (as documented) at patient's floor/unit and/or counseling patient: Coding Level of Care Code 59124 INT INP/OBS CARE 2/55MIN Diagnoses SBO (small bowel obstruction) K56.609 Time Spent (min) 55
--- NOTE | 2022-12-26 11:03 | Urology Consultation ---
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 She was admitted earlier this month for SBO and was found to have interval development of moderate bilateral hydroureteronephrosis, likely due to mass effect upon the distal ureters by peritoneal implants on CT imaging from 11/28/22. Urology asked to evaluate patient due to hydronephrosis. Patient is afebrile and hemodynamically stable. Labs today show a white count of 4.13, hemoglobin 8.4, and creatinine 0.54. Urine culture from 12/23 with more than 3 types of organisms, moderate counts. She has been voiding spontaneously. She does feel the need to push/strain at times. We discussed monitoring closely with bladder scans for postvoid residuals. We also discussed options including intermittent catheterization versus Mack catheter if she is found to have urinary retention issues. CT abdomen pelvis from today shows stable moderate bilateral hydroureteronephrosis, likely secondary to mass effect from the metastatic disease. No stones. Decompressed urinary bladder with mild wall thickening. No plan for intervention. Her creatinine has remained stable. She is not having any severe flank pain or discomfort. We discussed the possibility of ureteral stents for management of the hydronephrosis, however she prefers to monitor conservatively for now. We discussed that we can revisit ureteral stents if she has worsening renal function, severe pain, or other acute changes or signs of infection. Will arrange outpatient follow-up with our service for continued care. Urology will follow peripherally. Supervising Physician Co-Signing Physician Notes Discussed patient with LAURA. Agree with plan. In the setting of malignant obstruction, unless there is concern for infection, worsening renal function, or worsening pain, I tend to watch these conservatively. Additionally placing stent(s) will require anesthesia daljit 3 months which would put her at higher risk for recurrent bowel obstructions. 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 Urology asked to evaluate patient for hydronephrosis. She was hospitalized earlier this month for SBO. Urology consulted at that time for hydronephrosis and difficulty voiding. CT abd pelvis 11/28/22 notable for interval development of moderate bilateral hydroureteronephrosis, likely due to mass effect upon the distal ureters by peritoneal implants. Ureteral stents were discussed with patient for management. However she had no considerable signs of severe obstruction or infection therefore plan was for continued observation. Creatinine was stable. Repeat CT abdomen pelvis from 12/13/2022 again demonstrated moderate hydronephrosis likely secondary to mass effect from the metastatic disease. She was discharged on 12/18/2022. She was to have outpatient urology follow-up with Dr. Jamil on 12/24/2022 however she has been readmitted with recurrent SBO. Patient examined at bedside this AM. Awake, sitting up in bedside chair on arrival. No acute distress. She denies any significant back or flank pain. Denies fevers, chills. Nausea has improved. Tolerating clear liquid diet. Voiding spontaneously. Denies hematuria or dysuria. She is unsure if she is emptying her bladder completely. She does have to push/strain on occasion. Allergies Allergy/AdvReac Type Severity Reaction Status Date / Time egg Allergy Intermediate "INFLAMMATORY Verified 12/22/22 10:38 REACTION" levofloxacin [From Levaquin] AdvReac Intermediate "didn't Verified 12/22/22 10:38 feel well." Home Medications Medication Instructions Recorded Confirmed Type omega-3 acid ethyl esters 1 gram 1 cap PO QAM 02/15/21 12/22/22 History capsule (Lovaza) thyroid (pork) 60 mg tablet 60 mg PO QAM 02/20/21 12/22/22 History ([place] Thyroid) cholecalciferol (vitamin D3) 50 50 mcg PO QAM 08/06/21 12/22/22 History mcg (2,000 unit) capsule eszopiclone 3 mg tablet (Lunesta) 3 mg PO HS 08/11/21 12/22/22 History cyanocobalamin (vitamin B-12) 1,000 mcg subcut WK 11/28/22 12/22/22 History 1,000 mcg/mL injection solution ascorbic acid (vitamin C) 500 mg 500 mg PO DAILY 12/08/22 12/22/22 History tablet (Vitamin C) alprazolam 0.25 mg tablet 0.25 mg PO Q8 PRN Anxiety 12/13/22 12/22/22 History Patient History Medical History Anxiety HIGH STRESS LEVEL OVER PAST FEW MONTHS, MULTIPLE DEATHS OF LOVED ONES IN THE PAST YR COPD (chronic obstructive pulmonary disease) NO CURRENT MEDS Family history of reaction to anesthesia MOM - SLOW TO WAKE UP Hepatitis HX HEPATITIS B History of anesthesia reaction "OVERLY SENSITIVE TO" - SLOW TO WAKE UP History of rheumatic fever Hypothyroidism Leiomyosarcoma of uterus (~03/2021) S/p hysterectomy and current chemo Lyme disease Fall 2020 Maintenance chemotherapy Currently receiving chemotherapy, last treatment 09/23/21. Mitral valve prolapse syndrome Per ECHO 07/2021 - MV normal in structure and function. Trace MR Port-A-Cath in place (10/02/21) Insertion Access Port, Left Internal Jugular, with Fluoroscopy(Left) - Arthur Presley DO, FACS SBO (small bowel obstruction) Admitted 08/11/21 to 08/14/21 at [facility] - etiology likely adhesional per discharge summary Snores ORAL APPLIANCE, NO HX SLEEP STUDY Spinal arachnoid cyst Surgical History H/O carotid [place]arte[place] [facility] [facility] [place] H/O: hysterectomy Robotic Assisted Laparoscopic hysterectomy, Bilateral Salpingo-oopherectomy History of colonoscopy History of dilatation and curettage last 03/11/21 @ [place] with Dr. Schmitz History of parotid gland excision S/P appendectomy HX S/P tonsillectomy HX S/P wisdom tooth extraction HX Family History Father Heart disease Grandfather (Paternal) No problems noted. Grandfather (Maternal) No problems noted. 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 current occupational status: retired How many Children do You have: 0 Other Information That Helps Us Care for You: No Feels Safe at Home: Yes Safety Concerns: Feels Safe At This Time Diet: regular Diet Comment: Juicing, raw vegetables, healthy choices during the past year weight has: remained stable Assistive Devices: Glasses Review of Systems Review of Systems: All systems reviewed & are unremarkable except as noted in HPI & below Physical Exam Constitutional: well developed and well nourished; no acute distress Neck: normal visual inspection Respiratory: normal respiratory effort; no respiratory distress and no labored breathing Musculoskeletal: Head/Neck/Chest: normocephalic Skin: No visible rashes or lesions to exposed skin areas Neurologic: moves all extremities and awake Psychiatric: A+Ox3, euthymic affect Results & Data Vital Signs (Past 12 Hours) Vital Signs Temp Pulse Resp BP Pulse Ox O2 Del Method 12/26/22 07:27 36.3 C L 83 16 127/80 100 Room Air PG Care Time/CCT Total # of Minutes Spent Total Time Spent with Patient: Total time spent is greater than 50% in coordination of care (as documented) at patient's floor/unit and/or counseling patient: Coding Level of Care Code 76749 INT INP/OBS CARE 2/55MIN Diagnoses Hydronephrosis N13.30
--- NOTE | 2022-12-26 12:39 | Palliative Care Progress Note ---
Date of Service December 26, 2022 Assessment & Plan (1) Abdominal pain: Plan: Seems better. CT pending. Unfortunately, this obstruction is likely to be a recurring, chronic problem for with significant symptom burden. We have discussed venting G tube, artificial nutrition and hydration, palliative medication options. She is gathering information and discussing with her family. (2) Vaginal bleeding: Plan: with vaginal cuff metastatic lesion receiving palliative radiation therapy (3) Fatigue: Plan: She is concerned about her and family having to take care of her at home. We had discussion about options for home care versus SNF as she considers what best option is for her at this time. Her daughter, Leighton, was included on part of conversation on speaker phone. Case management is involved. (4) Palliative care encounter: Plan: John is tearful at times as she considers her prognosis and her mortality. She expresses frustration and is tired of being sick. At times, she considers forgoing further cancer treatment after radiation and being at home with hospice until her dying time. She has also considered SNF because she does not want to be a burden to her family. I encouraged her to talk with them about their thoughts and feelings regarding caring for her at home. We discussed hospice respite care, transition to SNF from home on hospice and GIP care. She is meeting with other providers and considering her options. Admission and Anticipated Discharge Date Admission Date: December 23, 2022 Subjective Feeling tired this morning. Reports that abdominal pain has improved. CT is pending. Review of Systems Review of Systems: ESAS Pain 1/3 Dyspnea 0/3 Nausea 0/3 Drowsiness 0/3 Physical Exam Constitutional: + ill appearing Respiratory: normal respiratory effort; no labored breathing Musculoskeletal: Extremities: + muscle atrophy Neurologic: Speech / Cognition: normal cognition Genitourinary: continent Results & Data Vital Signs (Past 12 Hours) Vital Signs Temp Pulse Resp BP Pulse Ox O2 Del Method 12/26/22 07:27 97.3 F L 83 16 127/80 100 Room Air PG Care Time/CCT Total # of Minutes Spent Total Time Spent: 55 Total Time Spent with Patient: Total time spent is greater than 50% in coordination of care (as documented) at patient's floor/unit and/or counseling patient: Coding Level of Care Code 63302 SUB INP/OBS CARE 3/50MIN Diagnoses Abdominal pain R10.84 Abdominal location: generalized Vaginal bleeding N93.9 Fatigue R53.83 Palliative care encounter Z51.5 (1) Abdominal pain Abdominal location: generalized Qualified Code(s): R10.84 - Generalized abdominal pain
--- NOTE | 2022-12-26 12:52 | CT Scan Report ---
ABDOMEN AND PELVIS CT WITHOUT CONTRAST CT DOSE: 438.16 mGy.cm HISTORY: Follow-up study in a patient with hydronephrosis and recent bowel obstruction. follow up, hy dronephrosis TECHNIQUE: Multiaxial CT images of the abdomen and pelvis were performed without contrast. A dose lo wering technique was utilized adhering to the principles of ALARA. COMPARISON STUDY: 12/13/2022. FINDINGS: Decreased attenuation of the cardiac blood pool suggestive of anemia. Small pericardial eff usion. Small to moderate pleural effusions. Mild bibasilar atelectasis with intralobular septal thick ening of the lung suggestive of pulmonary edema. Anasarca. No free air. Limited study without the use of contrast. Spleen measures in the upper limits of normal in size. Unremarkable pancreas and left adrenal gland. Unchanged 1.9 cm right adrenal gland nodule which is likely benign. Unremarkable liver. Hyperattenuat ing material layering within the gallbladder suggestive of sludge versus cholelithiasis. Moderate bilateral hydroureteronephrosis again noted and appears stable from the prior exam. No uroli th. Decompressed urinary bladder with mild wall thickening. The aorta and IVC are within normal limit s. No new lymphadenopathy. Resolution of the previously described bowel obstruction. Peritoneal metas tasis are again noted with the largest implant within the mid pelvis measuring approximately 7.5 cm n ow contains a few central foci of air. The 5 cm implant within the left hemipelvis is noted resulting in mass effect versus invasion into the adjacent bowel. Small volume of abdominal pelvic ascites has worsened. 3 cm metastatic implant noted within the abdominal right lower quadrant. No acute fracture or destructive bone lesion identified. IMPRESSION: 1. Limited exam without the use of contrast. 2. Resolution of the previously described high-grade small bowel obstruction. 3. Peritoneal metastatic implants are again noted. The largest mass in the midline pelvis which previ ously was noted to cause mass effect versus invasion into the adjacent small bowel now demonstrates c entral foci of intralesional air which may be secondary to interval instrumentation versus communicat ion with adjacent bowel. 4. Stable moderate hydroureteronephrosis, likely secondary to mass effect from the metastatic disease . 5. Volume overload with pericardial, pleural effusions, anasarca and progressive abdominal pelvic asc ites. 6. Additional findings as above. ACT 112: Negative or not required by law. The above report was generated using voice recognition software. It may contain grammatical, syntax o r spelling errors. Dictated: 12/26/2022 11:53 AM Transcribed: 12/26/2022 12:42 PM Silke [id number] MICHELLE_Guy [id number] Electronically signed by: Troy Springer M.D. 12/26/2022 12:51 PM
[2022-12-26] MEDS ORDERED: FUROSEMIDE 40 MG/4 ML VIAL IV ONE (13:00)
--- NOTE | 2022-12-26 13:45 | Hospitalist Progress Note ---
Date of Service December 26, 2022 Assessment & Plan (1) SBO (small bowel obstruction): Plan: -Patient has a history of leiomyosarcoma of uterus with mets to the peritoneum causing her recurrent small bowel obstruction. -Recently discharged, but readmitted again for worsening symptoms -XR and history again suggestive of small bowel obstruction which is likely to continue to return with increasing frequency. -She went for palliative radiotherapy 12/25 and 12/26 -Repeat CT abdomen today shows resolution of SBO -Patient no longer willing to consider G tube, after initially considering it (2) Hydronephrosis: Plan: Chronic, Cr at baseline, no acute intervention required However, has been complaining of difficulty urinating Urology consulted, no surgical plans for now (3) GERD (gastroesophageal reflux disease): Plan: Pantoprazole 40mg IV daily Not clear she needs this on discharge as suspect just due to vomiting (4) Leiomyosarcoma of uterus: Plan: with peritoneal mets suspected causing her recurrent SBO Palliative radiation therapy started, 12/25 (5) Vaginal bleeding: Plan: Continue to monitor hemoglobin (6) Port-A-Cath in place: (7) Hypothyroidism: Plan: TSH WNL December 15 Restart thyroid medication when able to take liquids Plan Continue hospitalization, hopefully d/c soon. palliative on board, may need hospice at discharge Admission and Anticipated Discharge Date Admission Date: December 23, 2022 Subjective patient seen and examined, came back from a session of radiotherapy, feeling tired Review of Systems Review of Systems: All systems reviewed are negative, apart from the ones contained in the history. Physical Exam Physical Exam: The patient is awake, alert and oriented 3, well developed and well nourished, normocephalic and atraumatic, lying in bed and in no acute distress. HEENT--PERRL, EOMI, mucous membranes and oropharynx mildly dry Neck--supple. No JVD. No bruits. Thyroid normal, trachea midline, no adenopathy. Heart--normal S1 and S2. No murmurs, rubs or gallops. Lungs--clear bilaterally, no respiratory distress, no accessory muscle use. Abdomen--normal bowel sounds and soft. Mild epigastric and left sided abdominal pain Extremities--no cyanosis or clubbing. No edema. Dermatologic--normal skin turgor, normal color, no abnormal lymph nodes, no rash. Neurologic--cranial nerves II through XII grossly intact. Rheumatologic--normal range of motion. Psychiatric--normal affect. Results & Data Results & Data Vital Signs (Past 12 Hours) Vital Signs Temp Pulse Resp BP Pulse Ox O2 Del Method 12/26/22 07:27 97.3 F L 83 16 127/80 100 Room Air PG Care Time/CCT Total # of Minutes Spent Total Time Spent with Patient: Total time spent is greater than 50% in coordination of care (as documented) at patient's floor/unit and/or counseling patient: Coding Level of Care Code 58723 SUB INP/OBS CARE 2/35MIN Diagnoses SBO (small bowel obstruction) K56.609 Hydronephrosis N13.30 GERD (gastroesophageal reflux disease) K21.9 Leiomyosarcoma of uterus C55 Vaginal bleeding N93.9 Port-A-Cath in place Z95.828 Hypothyroidism E03.9 Time Spent (min) 35
[2022-12-26 17:38] LABS: Appearance Urine Cloudy (Clear); Bacteria Urine Automated Negative (Negative); Blood Urine 3+ (Negative); Color Urine Orange; Epithelial Cell Urine Auto 0-5 /lpf (0-5); Glucose Urine UA Negative (Negative); Ketones Urine Negative (Negative); Leukocyte Esterase Urine 2+ (Negative); Nitrite Urine Negative (Negative); Protein Urine 3+ (Negative); Specific Gravity Urine 1.008 (1.000-1.030); Urobilinogen Urine Negative (Negative); WBC Urine Automated >30 /hpf (0-5); pH Urine 6.5 (4.5-7.5)
[2022-12-26 17:40] LABS: Bilirubin Urine 1+ (Negative)
[2022-12-26 17:55] LABS: RBC Urine Automated >30 /hpf (0-4)
[2022-12-26] MEDS: ACETAMINOPHEN 650 MG/65 ML VIAL IV PRN (21:41)
[2022-12-27] MEDS: HEPARIN 100 UNIT/ML 5ML FLUSH FLUSH PRN (08:59)
[2022-12-27 09:21] LABS: Hematocrit (blood only) 27.5 % (37.0-47.0); Hemoglobin 8.6 g/dl (12.0-16.0); Mean Corpuscular Hemoglobin 30.1 pg (25.0-34.0); Mean Corpuscular Hgb Conc 31.3 g/dL (32.0-36.0); Mean Corpuscular Volume 96.2 fL (80.0-100.0); Mean Platelet Volume 9.4 fL (9.4-12.4); Platelet Count 295 K/uL (130-400); RDW Coefficient of Variation 15.2 % (11.5-14.5); RDW Standard Deviation 52.1 fL (36.4-46.3); Red Blood Count 2.86 M/uL (4.20-5.40); White Blood Count 4.73 K/ul (4.8-10.8)
[2022-12-27 09:28] LABS: BUN Creatinine Ratio 13.8 (10-20); Calcium 7.4 mg/dl (8.6-10.3); Creatinine Clr Calc Pharmacy 74.1 ml/min; Est GFR (African American) 111.3 ml/min; Est GFR (Non-African American) 96.1 ml/min; Potassium 3.3 mmol/L (3.5-5.1)
[2022-12-27] MEDS ORDERED: POTASSIUM CHLORIDE CRTAB 20 MEQ TABCR PO STA (10:23)
--- NOTE | 2022-12-27 10:29 | Hospitalist Progress Note ---
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 -Recently discharged, but readmitted again for worsening symptoms -XR and history again suggestive of small bowel obstruction which is likely to continue to return with increasing frequency. -She went for palliative radiotherapy 12/25 and 12/26, next session is Thursday -Repeat CT abdomen today shows resolution of SBO -Patient no longer willing to consider G tube, after initially considering it (2) Hydronephrosis: Plan: Chronic, Cr at baseline, no acute intervention required However, has been complaining of difficulty urinating Urology consulted, no surgical plans for now (3) GERD (gastroesophageal reflux disease): Plan: Pantoprazole 40mg IV daily Not clear she needs this on discharge as suspect just due to vomiting (4) Leiomyosarcoma of uterus: Plan: with peritoneal mets suspected causing her recurrent SBO Palliative radiation therapy started, 12/25 (5) Vaginal bleeding: Plan: Continue to monitor hemoglobin, stable so far (6) Port-A-Cath in place: (7) Hypothyroidism: Plan: TSH WNL December 15 Restart thyroid medication when able to take liquids Plan Continue hospitalization, hopefully d/c soon. palliative on board, may need hospice at discharge Admission and Anticipated Discharge Date Admission Date: December 23, 2022 Subjective patient seen and examined, still undecided about discharge, says she doesnt want to go home and then come back in a couple of days. I informed her thats not a reason to keep her in the hospital Review of Systems Review of Systems: All systems reviewed are negative, apart from the ones contained in the history. Physical Exam Physical Exam: The patient is awake, alert and oriented 3, well developed and well nourished, normocephalic and atraumatic, lying in bed and in no acute distress. HEENT--PERRL, EOMI, mucous membranes and oropharynx mildly dry Neck--supple. No JVD. No bruits. Thyroid normal, trachea midline, no adenopathy. Heart--normal S1 and S2. No murmurs, rubs or gallops. Lungs--clear bilaterally, no respiratory distress, no accessory muscle use. Abdomen--normal bowel sounds and soft. Mild epigastric and left sided abdominal pain Extremities--no cyanosis or clubbing. No edema. Dermatologic--normal skin turgor, normal color, no abnormal lymph nodes, no rash. Neurologic--cranial nerves II through XII grossly intact. Rheumatologic--normal range of motion. Psychiatric--normal affect. Results & Data Results & Data Vital Signs (Past 12 Hours) Vital Signs Temp Pulse Resp BP Pulse Ox O2 Del Method 12/27/22 07:39 97.9 F 78 16 124/77 100 Room Air PG Care Time/CCT Total # of Minutes Spent Total Time Spent with Patient: Total time spent is greater than 50% in coordination of care (as documented) at patient's floor/unit and/or counseling patient: Coding Level of Care Code 84737 SUB INP/OBS CARE 2/35MIN Diagnoses SBO (small bowel obstruction) K56.609 Hydronephrosis N13.30 GERD (gastroesophageal reflux disease) K21.9 Leiomyosarcoma of uterus C55 Vaginal bleeding N93.9 Port-A-Cath in place Z95.828 Hypothyroidism E03.9 Time Spent (min) 35
[2022-12-27] MEDS: PANTOprazole 40 MG in SYRINGE 0 ML IV SCH (11:40)
[2022-12-27] MEDS: POTASSIUM CHLORIDE / WTR 10 MEQ/100 ML PLCT IV SCH ×2 (11:40→12:43)
[2022-12-27] MEDS: ACETAMINOPHEN 650 MG/65 ML VIAL IV PRN (19:11)
[2022-12-28 06:31] LABS: Hematocrit (blood only) 27.8 % (37.0-47.0); Hemoglobin 8.6 g/dl (12.0-16.0); Mean Corpuscular Hemoglobin 29.9 pg (25.0-34.0); Mean Corpuscular Hgb Conc 30.9 g/dL (32.0-36.0); Mean Corpuscular Volume 96.5 fL (80.0-100.0); Mean Platelet Volume 9.4 fL (9.4-12.4); Platelet Count 276 K/uL (130-400); RDW Coefficient of Variation 15.3 % (11.5-14.5); RDW Standard Deviation 53.7 fL (36.4-46.3); Red Blood Count 2.88 M/uL (4.20-5.40); White Blood Count 4.32 K/ul (4.8-10.8)
[2022-12-28 06:46] LABS: BUN Creatinine Ratio 14.5 (10-20); Calcium 7.2 mg/dl (8.6-10.3); Creatinine Clr Calc Pharmacy 69.3 ml/min; Est GFR (African American) 108.9 ml/min; Potassium 3.5 mmol/L (3.5-5.1)
[2022-12-28] MEDS: ACETAMINOPHEN 650 MG/65 ML VIAL IV PRN ×3 (08:18→21:54)
[2022-12-28] MEDS: FUROSEMIDE 40 MG/4 ML VIAL IV SCH (11:30)
[2022-12-28] MEDS: PANTOprazole 40 MG in SYRINGE 0 ML IV SCH (11:31)
[2022-12-28] MEDS: HEPARIN 100 UNIT/ML 5ML FLUSH FLUSH PRN (11:31)
--- NOTE | 2022-12-28 12:46 | Hospitalist Progress Note ---
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 -Recently discharged, but readmitted again for worsening symptoms -XR and history again suggestive of small bowel obstruction which is likely to continue to return with increasing frequency. -She went for palliative radiotherapy 12/25 and 12/26, next session is Thursday -Repeat CT abdomen shows resolution of SBO -Patient no longer willing to consider G tube, after initially considering it (2) Hydronephrosis: Plan: Chronic, Cr at baseline, no acute intervention required However, has been complaining of difficulty urinating Urology consulted, no surgical plans for now (3) Edema: Plan: Patient beginning to develop pitting leg edema, likely from her cancer Still requesting IV fluids because she says she is dehydrated Will start IV Lasix 40mg daily (4) GERD (gastroesophageal reflux disease): Plan: Pantoprazole 40mg IV daily Not clear she needs this on discharge as suspect just due to vomiting (5) Leiomyosarcoma of uterus: Plan: with peritoneal mets suspected causing her recurrent SBO Palliative radiation therapy started, 12/25 (6) Vaginal bleeding: Plan: Continue to monitor hemoglobin, stable so far (7) Port-A-Cath in place: (8) Hypothyroidism: Plan: TSH WNL December 15 Restart thyroid medication when able to take liquids Plan Continue hospitalization, hopefully d/c soon. palliative on board, may need hospice at discharge. patient is undecided about discharge home Admission and Anticipated Discharge Date Admission Date: December 23, 2022 Subjective patient seen and examined, says she feels bloated today and her legs beginning to swell Review of Systems Review of Systems: All systems reviewed are negative, apart from the ones contained in the history. Physical Exam Physical Exam: The patient is awake, alert and oriented 3, well developed and well nourished, normocephalic and atraumatic, lying in bed and in no acute distress. HEENT--PERRL, EOMI, mucous membranes and oropharynx mildly dry Neck--supple. No JVD. No bruits. Thyroid normal, trachea midline, no adenopathy. Heart--normal S1 and S2. No murmurs, rubs or gallops. Lungs--clear bilaterally, no respiratory distress, no accessory muscle use. Abdomen--normal bowel sounds and soft. Mild epigastric and left sided abdominal pain Extremities--no cyanosis or clubbing. pitting leg edema Dermatologic--normal skin turgor, normal color, no abnormal lymph nodes, no rash. Neurologic--cranial nerves II through XII grossly intact. Rheumatologic--normal range of motion. Psychiatric--normal affect. Results & Data Results & Data Vital Signs (Past 12 Hours) Vital Signs Temp Pulse Resp BP Pulse Ox O2 Del Method 12/28/22 11:25 76 126/75 12/28/22 08:02 98.4 F 93 H 17 136/82 95 Room Air PG Care Time/CCT Total # of Minutes Spent Total Time Spent with Patient: Total time spent is greater than 50% in coordination of care (as documented) at patient's floor/unit and/or counseling patient: Coding Level of Care Code 14500 SUB INP/OBS CARE 2/35MIN Diagnoses SBO (small bowel obstruction) K56.609 Hydronephrosis N13.30 Edema R60.9 GERD (gastroesophageal reflux disease) K21.9 Leiomyosarcoma of uterus C55 Vaginal bleeding N93.9 Port-A-Cath in place Z95.828 Hypothyroidism E03.9 Time Spent (min) 35
[2022-12-28] MEDS ORDERED: MoRPHine SULFATE 2 MG/ML CARP IV PRN ×2 (21:30)
[2022-12-29 06:18] LABS: Hematocrit (blood only) 27.2 % (37.0-47.0); Hemoglobin 8.5 g/dl (12.0-16.0); Mean Corpuscular Hgb Conc 31.3 g/dL (32.0-36.0); Mean Corpuscular Volume 96.1 fL (80.0-100.0); Mean Platelet Volume 9.2 fL (9.4-12.4); Platelet Count 285 K/uL (130-400); RDW Coefficient of Variation 15.3 % (11.5-14.5); RDW Standard Deviation 53.3 fL (36.4-46.3); Red Blood Count 2.83 M/uL (4.20-5.40); White Blood Count 3.99 K/ul (4.8-10.8)
[2022-12-29 06:42] LABS: BUN Creatinine Ratio 13.9 (10-20); Calcium 7.3 mg/dl (8.6-10.3); Creatinine Clr Calc Pharmacy 54.4 ml/min; Est GFR (African American) 90.4 ml/min; Potassium 3.4 mmol/L (3.5-5.1)
[2022-12-29] MEDS: FUROSEMIDE 40 MG/4 ML VIAL IV SCH (09:29)
[2022-12-29] MEDS: HEPARIN 100 UNIT/ML 5ML FLUSH FLUSH PRN (10:23)
[2022-12-29] MEDS: PANTOprazole 40 MG in SYRINGE 0 ML IV SCH (10:23)
[2022-12-29] MEDS: ACETAMINOPHEN 650 MG/65 ML VIAL IV PRN (12:09)
--- NOTE | 2022-12-29 12:09 | Discharge Summary ---
Date of Service December 29, 2022 Admission HPI Per Admitting Provider John Horan 67 year old female with leiomyosarcoma with peritoneal metastasis and recent small bowel obstruction who [facility] with abdominal pain, nausea, vomiting. She does note having a bowel movement this morning without hematochezia or melena. She feels these are the exact same symptoms she had with her recent small bowel obstruction. No new urinary complaints, she usually has some dysuria. No fever, chills, respiratory complaints. She has not previously had a discussion regarding TPN or G-tube for venting. SHe notes mild heartburn from the vomiting. Principal Diagnosis SBO, leismyosarcoma Discharge Exam The patient is awake, alert and oriented 3, well developed and well nourished, normocephalic and atraumatic, lying in bed and in no acute distress. HEENT--PERRL, EOMI, mucous membranes and oropharynx mildly dry Neck--supple. No JVD. No bruits. Thyroid normal, trachea midline, no adenopathy. Heart--normal S1 and S2. No murmurs, rubs or gallops. Lungs--clear bilaterally, no respiratory distress, no accessory muscle use. Abdomen--normal bowel sounds and soft. Mild epigastric and left sided abdominal pain Extremities--no cyanosis or clubbing. pitting leg edema Dermatologic--normal skin turgor, normal color, no abnormal lymph nodes, no ra sh. Neurologic--cranial nerves II through XII grossly intact. Rheumatologic--normal range of motion. Psychiatric--normal affect. 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 -Recently discharged, but readmitted again for worsening symptoms -XR and history again suggestive of small bowel obstruction which is likely to continue to return with increasing frequency. -She went for palliative radiotherapy 12/25 and 12/26, next session is Thursday -Repeat CT abdomen shows resolution of SBO -Patient no longer willing to consider G tube, after initially considering it (2) Hydronephrosis: Chronic, Cr at baseline, no acute intervention required However, has been complaining of difficulty urinating Urology consulted, no surgical plans for now (3) Edema: Patient beginning to develop pitting leg edema, likely from her cancer Still requesting IV fluids because she says she is dehydrated Will start IV Lasix 40mg daily (4) GERD (gastroesophageal reflux disease): Pantoprazole 40mg IV daily Not clear she needs this on discharge as suspect just due to vomiting (5) Leiomyosarcoma of uterus: with peritoneal mets suspected causing her recurrent SBO Palliative radiation therapy started, 12/25 she cancelled her session today, 12/29 (6) Vaginal bleeding: Continue to monitor hemoglobin, stable so far (7) Port-A-Cath in place: (8) Hypothyroidism: TSH WNL December 15 Restart thyroid medication when able to take liquids Plan d/c home. patient not ready for hospice yet per palliative Total Time Total Time Spent Total Time Spent (In Minutes): 35 Discharge Plan Discharge Items Patient Disposition: Home - Self-Care Reason For Visit: SMALL BOWEL OBSTRUCTION Discharge Diagnosis: SBO Activity: Resume your previous activity Non-emergency contact: Primary Care Provider and Oncologist Call non-emergency contact if: you have any medication questions Follow-up/Referrals: Maranda Hernandez MD [Primary Care Provider] - 01/05/23 2:00 pm Diet: Regular Addtl Attending Provider Instructions: please make appointment to follow up with your regular doctors Pending Studies at Discharge: No Stand-Alone Forms: [employer], Smoking Cessation Medications and DC Order Prescriptions: Continued omega-3 acid ethyl esters [Lovaza] 1 gram capsule 1 cap PO QAM cholecalciferol (vitamin D3) 50 mcg (2,000 unit) capsule 50 mcg PO QAM thyroid (pork) [[place] Thyroid] 60 mg tablet 60 mg PO QAM eszopiclone [Lunesta] 3 mg Tablet 3 mg PO HS cyanocobalamin (vitamin B-12) 1,000 mcg/mL solution 1,000 mcg subcut WK Rx Instructions: on sundays ascorbic acid (vitamin C) [Vitamin C] 500 mg Tablet 500 mg PO DAILY alprazolam 0.25 mg tablet 0.25 mg PO Q8 PRN (Reason: Anxiety) Discharge Orders: Discharge Order (Routine); Ordered 12/29/22 Ordered By: Trevor Boykin Admission Data Admit Date/Time: 12/23/22 17:38 Attending Provider: Trevor Boykin Admit Provider: Roshan Spaulding Primary Care Provider: Maranda Hernandez Other Providers: Sarika Gallardo ; Charlene Roman ; Jose Washington ; Bart Saldana ; [facility] Other Interventions: Discharge Summary Assessment (RN) Last Done: 12/29/22 12:00 Coding Level of Care Code 95560 INP/OBS DISCH >30 MIN Diagnoses SBO (small bowel obstruction) K56.609 Hydronephrosis N13.30 Edema R60.9 GERD (gastroesophageal reflux disease) K21.9 Leiomyosarcoma of uterus C55 Vaginal bleeding N93.9 Port-A-Cath in place Z95.828 Hypothyroidism E03.9 Time Spent (min) 35
--- NOTE | 2022-12-29 12:10 | Palliative Care Progress Note ---
Date of Service December 29, 2022 Assessment & Plan (1) Abdominal pain: Plan: With bowel obstruction She has expressed concern about using opioids which is also a consideration with decreasing her GI motility. She is have difficulty taking some oral medications which led her to request fentanyl. Fentanyl absorption would be a consideration with her most recent weight of 108lbs and very limited subcutaneous tissue. She is essentially opioid naive with only one dose of morphine today. We discussed option for oral morphine concentrate which would not be a problem with swallowing and could be used as needed. She is considering which option feels better for her and has requested oral morphine concentrate. Notified Dr. Boykin. Discussed with Dr. Gallardo. (2) SBO (small bowel obstruction): Plan: This is very likely to be recurring for her. She has decided against venting G tube. We discussed concern that she is likely to need rehospitalization if symptoms worsen. Discussed use of oral steroid for at least temporary relief of her symptoms. She has some reluctance to use steroids but is agreeable to lower dose. (3) Palliative care encounter: Plan: John is feeling overwhelmed with navigating her illness and very much wants to go home and think things over. She has declined radiation therapy today but has not decided to stop treatment entirely. She is still considering possibility of some systemic treatment. She is concerned about being able to get IV hydration if needed for dehydration. She does understand that this is a temporary fix. We have discussed hospice versus palliative care with her daughter Leighton participating via speaker phone. She wants to take some time at home to consider her options before making further decisions about what she wants for her care. Plan at this time is to have home nursing/palliative care through [facility]. Discussed with case management. Admission and Anticipated Discharge Date Admission Date: December 23, 2022 Subjective Having abdominal pain, denies nausea. She requested morphine due to concern about taking hydromorphone. She is very anxious to go home today. Review of Systems Review of Systems: ESAS Pain 2/3 Dyspnea 0/3 Nausea 0/3 Drowsiness 0/3 Physical Exam Constitutional: + thin; no acute distress Respiratory: normal respiratory effort; no labored breathing Cardiovascular: LE edema Gastrointestinal (Abdomen): Mild distention, tender to palpation Musculoskeletal: Extremities: + muscle atrophy Neurologic: Speech / Cognition: normal cognition Results & Data Vital Signs (Past 12 Hours) Vital Signs Temp Pulse Resp BP Pulse Ox O2 Del Method 12/29/22 07:58 98.1 F 76 17 113/68 99 Room Air PG Care Time/CCT Total # of Minutes Spent Total Time Spent: 60 Total Time Spent with Patient: Total time spent is greater than 50% in coordination of care (as documented) at patient's floor/unit and/or counseling patient: goals of care, symptom management, patient and family education and support, coordination of care Coding Level of Care Code 14324 SUB INP/OBS CARE 3/50MIN Diagnoses Abdominal pain R10.84 Abdominal location: generalized SBO (small bowel obstruction) K56.609 Palliative care encounter Z51.5 (1) Abdominal pain Abdominal location: generalized Qualified Code(s): R10.84 - Generalized abdominal pain
== END 2022-12-29 14:20 | disposition home health service (06) | DRG 389 ==
LOC: SUATTDRO 17:38 → 3E 17:38

== ENCOUNTER 2023-01-22 01:18 | Inpatient (IN) ==
[2023-01-22] MEDS ORDERED: MoRPHine SULFATE 2 MG/ML CARP ONE (02:30)
[2023-01-22] MEDS ORDERED: ONDANSETRON INJ 2 MG/ML 2 ML VIAL ONE (02:30)
[2023-01-22] MEDS ORDERED: SODIUM CHLORIDE 0.9% 500 ML IV ONE (02:53)
[2023-01-22] MEDS ORDERED: ONDANSETRON INJ 2 MG/ML 2 ML VIAL IV STA (02:54)
[2023-01-22] MEDS ORDERED: MoRPHine SULFATE 2 MG/ML CARP IV STA (02:54)
[2023-01-22 03:07] LABS: Basophils # (auto) 0.01 K/uL (0.00-0.20); Basophils % (auto) 0.1 %; Eosinophils # (auto) 0.02 K/uL (0.00-0.50); Eosinophils % (auto) 0.2 %; Hematocrit (blood only) 27.6 % (37.0-47.0); Hemoglobin 8.8 g/dl (12.0-16.0); Immature Granulocytes # (auto) 0.06 K/uL (0.01-0.20); Immature Granulocytes % (auto) 0.7 %; Lymphocytes # (auto) 0.73 K/uL (1.20-3.40); Lymphocytes % (auto) 8.6 %; Mean Corpuscular Hemoglobin 31.7 pg (25.0-34.0); Mean Corpuscular Hgb Conc 31.9 g/dL (32.0-36.0); Mean Corpuscular Volume 99.3 fL (80.0-100.0); Monocytes # (auto) 0.37 K/uL (0.11-0.59); Monocytes % (auto) 4.4 %; Neutrophils # (auto) 7.29 K/uL (1.40-6.50); Platelet Count 263 K/uL (130-400); RDW Coefficient of Variation 20.3 % (11.5-14.5); Red Blood Count 2.78 M/uL (4.20-5.40); White Blood Count 8.48 K/ul (4.8-10.8)
[2023-01-22 03:14] LABS: BUN Creatinine Ratio 27.4 (10-20); Calcium 8.4 mg/dl (8.6-10.3); Creatinine Clr Calc Pharmacy 65.9 ml/min; Est GFR (African American) 108.9 ml/min; Potassium 3.4 mmol/L (3.5-5.1)
[2023-01-22] MEDS ORDERED: OPTIRAY 320 100ml IV ONE (03:31)
[2023-01-22 03:50] LABS: Anisocytosis Present
--- NOTE | 2023-01-22 05:07 | CT Scan Report ---
Exam(s): CT ABDOMEN + PELVIS With Contrast IV Amt: 90 ml optiray 320 EXAM: CT Abdomen and Pelvis With Intravenous Contrast CLINICAL HISTORY: Reason for exam: abd pain. TECHNIQUE: Axial computed tomography images of the abdomen and pelvis with intravenous contrast. CTDI is 6.9 mGy and DLP is 336.43 mGy-cm. Automated exposure control was utilized for the study. A dose lowering technique was utilized adhering to the principles of ALARA. CONTRAST: Patient received 90 ml optiray 320 of IV contrast COMPARISON: 12/26/2022. FINDINGS: Lung bases: Posterior depending bilateral lower lobe atelectasis. Minimal scarring versus atelectasis at the anterior right middle lobe. Remainder of the lung bases are clear. Pleural space: Near complete resolution of previously seen bilateral pleural effusions with minimal residual left-sided pleural fluid. Heart: Unremarkable. No significant pericardial effusion. Normal cardiac size. ABDOMEN: Liver: Unremarkable. No mass. Gallbladder and bile ducts: Unremarkable. No calcified stones. No ductal dilation. Pancreas: Unremarkable. No mass. No ductal dilation. Spleen: Unremarkable. No splenomegaly. Adrenals: Low-attenuation nodule within the right adrenal gland measuring 1.6 x 0.5 cm. Unremarkable left adrenal gland. Kidneys and ureters: Bilateral hydronephrosis and hydroureter, with no significant change in the interval. Stomach and bowel: Multiple small bowel loops dilated up to a maximum diameter of 3.4 cm consistent with small bowel obstruction, new or progressed in the interval and zone of transition likely at the level of the lower pelvic mass. PELVIS: Appendix: No findings to suggest acute appendicitis. Bladder and reproductive system: ere are multiple confluent heterogeneous pelvic masses, largest seen along the left side of the pelvis measuring 8.0 x 6.3 cm with additional heterogeneous pelvic masses anterior to the sacrum and second largest heterogeneous mass identified in the lower posterior pelvis, image 78, series 2 measuring 9.2 x 7.8 cm. This extends into the posterior aspect of the urinary bladder wall. Distinct normal ovaries or uterus are not visualized. ABDOMEN and PELVIS: Intraperitoneal space: Mild ascites in the upper abdomen, predominantly surrounding the liver and spleen. Mild free fluid within the posterior pelvis. No free air. Bones/joints: No acute fracture. No dislocation. Soft tissues: Unremarkable. Vasculature: Unremarkable. No abdominal aortic aneurysm. Lymph nodes: Unremarkable. No enlarged lymph nodes. IMPRESSION: 1. Small bowel obstruction with likely zone of transition at the level of the pelvic mass or pelvic metastases, new or progressed in the interval. 2. Bilateral hydronephrosis and hydroureter likely secondary to pelvic heterogeneous mass, stable in the interval. 3. Large heterogeneous pelvic mass at midline, given location, likely suggestive of uterine or ovarian neoplasm. Adjacent surrounding peritoneal implants with likely invasion of the urinary bladder and surrounding small bowel along with secondary small bowel obstruction and obstructive uropathy. Clinical correlation recommended pain 4. Mild free fluid in the pelvis and upper abdomen. 5. Nodule in the right adrenal gland otherwise incompletely characterized, cannot exclude neoplasm. This may be further assessed with three-phase CT or MRI exam or PET scan evaluation. Electronically signed by: Jessica Ruth MD 01/22/23 05:07 AM
[2023-01-22] MEDS ORDERED: SODIUM CHLORIDE 0.9% 500 ML IV SCH (05:15)
--- NOTE | 2023-01-22 05:40 | History & Physical Report ---
Date of Service January 22, 2023 Assessment & Plan (1) SBO (small bowel obstruction): Plan: 67 yo female with PMHx of leiomyosarcoma with mets presents with abdominal pain. #SBO -presented with hours of worsening abdominal pain with some nausea. No vomiting. Unable to control pain with home morphine suspension. She is with recurrent SBO 2/2 mets. Also likely adhesions due to previous abdominal surgery. Last episode 1 month ago. NG tube not necessary at this time. -CT A/P: small bowel obstruction with likely zone of transition at the level of the pelvic mass or pelvic metastases interval -NPO, IVF, pain control, PPI -gen surg consulted- seen last visit, to further discuss venting G-tube #Leiomyosarcoma with mets -chronic, worsening compared to one month ago -palliative consulted- seen last visit #Bilateral hydronephrosis -due to mass effect from worsening mets. Also now with new onset hematuria. -consider urology consult DVT ppx: SCDs, ambulation FEN/GI: NPO Code Status: DNR/DNI Dispo: med surg (2) Palliative care encounter: (3) Leiomyosarcoma of uterus: History of Present Illness Chief Complaint: abdmominal pain Primary Care Provider: Karissa Thompson 67 yo female with PMHx of leiomyosarcoma with mets presents with abdominal pain. Hours ago patient started developing abdominal discomfort which continued to worsen. Mild associated nausea. She has also recently noticed some blood in her urine. She did try taking her liquid morphine at home which did not help much. She does have a history of recurrent small bowel obstruction secondary to her mets, her last bout being 1 month ago. Denies headache, fevers, chest pain, shortness of breath, vomiting, fatigue, constipation, diarrhea, chills, dysuria, extremity numbness/tingling/weakness. Allergies Allergy/AdvReac Type Severity Reaction Status Date / Time egg Allergy Intermediate "INFLAMMATORY Verified 12/22/22 10:38 REACTION" levofloxacin [From Levaquin] AdvReac Intermediate "didn't Verified 12/22/22 10:38 feel well." Home Medications Medication Instructions Recorded Confirmed Type thyroid (pork) 60 mg tablet 60 mg PO QAM 02/20/21 01/22/23 History ([place] Thyroid) cholecalciferol (vitamin D3) 50 50 mcg PO QAM 08/06/21 01/22/23 History mcg (2,000 unit) capsule eszopiclone 3 mg tablet (Lunesta) 3 mg PO HS PRN Sleep 08/11/21 01/22/23 History cyanocobalamin (vitamin B-12) 1,000 mcg subcut WK 11/28/22 01/22/23 History 1,000 mcg/mL injection solution ascorbic acid (vitamin C) 500 mg See Rx Instructions .Route .COMPLEX 12/08/22 01/22/23 History tablet (Vitamin C) alprazolam 0.25 mg tablet 0.25 mg PO Q8 PRN Anxiety 12/13/22 01/22/23 History dexamethasone 4 mg tablet 4 mg PO DAILY 01/22/23 01/22/23 History furosemide 20 mg tablet 20 mg PO DAILY 01/22/23 01/22/23 History morphine concentrate 100 mg/5 mL See Rx Instructions .Route .COMPLEX 01/22/23 01/22/23 History (20 mg/mL) oral solution Past Med/Surg History Medical History Anxiety HIGH STRESS LEVEL OVER PAST FEW MONTHS, MULTIPLE DEATHS OF LOVED ONES IN THE PAST YR COPD (chronic obstructive pulmonary disease) NO CURRENT MEDS Family history of reaction to anesthesia MOM - SLOW TO WAKE UP Hepatitis HX HEPATITIS B History of anesthesia reaction "OVERLY SENSITIVE TO" - SLOW TO WAKE UP History of rheumatic fever Hydronephrosis Hypothyroidism Leiomyosarcoma of uterus (~03/2021) S/p hysterectomy and current chemo Lyme disease Fall 2020 Maintenance chemotherapy Currently receiving chemotherapy, last treatment 09/23/21. Mitral valve prolapse syndrome Per ECHO 07/2021 - MV normal in structure and function. Trace MR Port-A-Cath in place (10/02/21) Insertion Access Port, Left Internal Jugular, with Fluoroscopy(Left) - Arthur Presley, DO, FACS SBO (small bowel obstruction) Admitted 08/11/21 to 08/14/21 at [facility] - etiology likely adhesional per d ischarge summary SBO (small bowel obstruction) Snores ORAL APPLIANCE, NO HX SLEEP STUDY Spinal arachnoid cyst Vaginal bleeding Surgical History [place] [facility] [place] [facility] [place]: hysterectomy Robotic Assisted Laparoscopic hysterectomy, Bilateral Salpingo-oopherectomy History of colonoscopy History of dilatation and curettage last 03/11/21 @ [place] with Dr. Schmitz History of parotid gland excision S/P appendectomy HX S/P tonsillectomy HX S/P wisdom tooth extraction HX Family History Father Heart disease Grandfather (Paternal) No problems noted. Grandfather (Maternal) No problems noted. Grandmother Colorectal cancer Mother Family history of colonic polyps History of anesthesia reaction overly sensitive to anesthesia Stroke Social History Smoking Status: Never smoker Second Hand Exposure: No; Do You Dip or Chew Tobacco: No; Hx Alcohol Use: No Hx Substance Use: No Preferred Language: Urdu Communication Ability: Effective Visual Impairment: No Limitations All Around Patternmaker Required: No Beliefs That Will Affect Care: None marital status: Current Living Situation: Alone Current Living Situation Comment: With . current occupational status: retired How many Children do You have: 0 Other Information That Helps Us Care for You: No Feels Safe at Home: Yes Diet: regular Diet Comment: Juicing, raw vegetables, healthy choices during the past year weight has: remained stable Assistive Devices: None Review of Systems Review of Systems: All systems reviewed & are unremarkable except as noted in HPI & below Physical Exam Physical Exam: Constitutional: in no acute distress, pleasant and normal affect, intact memory. AOx3. Vitals as above. HEENT: No scleral injection or discharge. Moist mucous membranes. Neck: Supple without lymphadenopathy or thyromegaly. Trachea midline. Lungs: Clear to auscultation bilaterally with good effort. No wheezes/rales/rhonchi. Cardiac: Regular rate and rhythm. No murmurs. No lower extremity edema. 2+ distal peripheral pulses. Abdomen: Bowel sounds present. Soft and nondistended. Mild diffuse tenderness.No guarding. No hepatosplenomegaly. MSK: No cyanosis or clubbing. Extremities motor strength 5/5. Skin: No rashes, warm, dry. Neurologic: no focal deficits Results & Data Results & Data Vital Signs (Past 12 Hours) Vital Signs Temp Pulse Resp BP Pulse Ox O2 Del Method 01/22/23 04:10 99 01/22/23 04:10 117/63 01/22/23 03:20 69 16 98 01/22/23 03:10 67 12 97 01/22/23 03:00 73 18 97 01/22/23 03:00 120/62 01/22/23 02:50 74 16 96 01/22/23 02:40 76 18 97 01/22/23 02:30 76 16 96 01/22/23 02:24 84 22 98 01/22/23 02:24 128/67 01/22/23 02:20 71 14 97 01/22/23 02:10 71 16 97 01/22/23 02:00 66 14 99 01/22/23 01:57 68 16 99 01/22/23 01:56 70 01/22/23 01:09 37.2 C 67 12 141/78 H 98 Room Air Laboratory Results Laboratory Results WBC 8.48 K/ul (4.8-10.8) 01/22/23 01:50 RBC 2.78 M/uL (4.20-5.40) L 01/22/23 01:50 Hgb 8.8 g/dl (12.0-16.0) L 01/22/23 01:50 Hct 27.6 % (37.0-47.0) L 01/22/23 01:50 MCV 99.3 fL (80.0-100.0) 01/22/23 01:50 MCH 31.7 pg (25.0-34.0) 01/22/23 01:50 MCHC 31.9 g/dL (32.0-36.0) L 01/22/23 01:50 RDW Std Deviation 73.0 fL (36.4-46.3) H 01/22/23 01:50 RDW Coeff of Elvi 20.3 % (11.5-14.5) H 01/22/23 01:50 Plt Count 263 K/uL (130-400) 01/22/23 01:50 MPV 9.0 fL (9.4-12.4) L 01/22/23 01:50 Immature Gran % (Auto) 0.7 % 01/22/23 01:50 Neut % (Auto) 86.0 % 01/22/23 01:50 Lymph % (Auto) 8.6 % 01/22/23 01:50 [place] % (Auto) 4.4 % 01/22/23 01:50 Eos % (Auto) 0.2 % 01/22/23 01:50 Baso % (Auto) 0.1 % 01/22/23 01:50 Neut # (Auto) 7.29 K/uL (1.40-6.50) H 01/22/23 01:50 Lymph # (Auto) 0.73 K/uL (1.20-3.40) L 01/22/23 01:50 [place] # (Auto) 0.37 K/uL (0.11-0.59) 01/22/23 01:50 Eos # (Auto) 0.02 K/uL (0.00-0.50) 01/22/23 01:50 Baso # (Auto) 0.01 K/uL (0.00-0.20) 01/22/23 01:50 Immature Gran # (Auto) 0.06 K/uL (0.01-0.20) 01/22/23 01:50 Anisocytosis Present 01/22/23 01:50 Sodium 138 mmol/L (136-145) 01/22/23 01:50 Potassium 3.4 mmol/L (3.5-5.1) L 01/22/23 01:50 Chloride 103 mmol/L (98-107) 01/22/23 01:50 Carbon Dioxide 29 mmol/L (21-32) 01/22/23 01:50 Anion Gap 6 (3-11) 01/22/23 01:50 BUN 17 mg/dl (6-23) 01/22/23 01:50 Creatinine 0.62 mg/dl (0.6-1.2) 01/22/23 01:50 Est Cr Clr Drug Dosing 65.9 ml/min 01/22/23 01:50 Est GFR ( Amer) 108.9 ml/min 01/22/23 01:50 Est GFR (Non-Af Amer) 94.0 ml/min 01/22/23 01:50 BUN/Creatinine Ratio 27.4 (10-20) H 01/22/23 01:50 Glucose 85 mg/dl (70-99(Fasting)) 01/22/23 01:50 Calcium 8.4 mg/dl (8.6-10.3) L 01/22/23 01:50 Impressions Abdomen/Pelvis CT 10/26/23 02:53 Exam(s): CT ABDOMEN + PELVIS With Contrast IV Amt: 90 ml optiray 320 EXAM: CT Abdomen and Pelvis With Intravenous Contrast CLINICAL HISTORY: Reason for exam: abd pain. TECHNIQUE: Axial computed tomography images of the abdomen and pelvis with intravenous contrast. CTDI is 6.9 mGy and DLP is 336.43 mGy-cm. Automated exposure control was utilized for the study. A dose lowering technique was utilized adhering to the principles of ALARA. CONTRAST: Patient received 90 ml optiray 320 of IV contrast COMPARISON: 12/26/2022. FINDINGS: Lung bases: Posterior depending bilateral lower lobe atelectasis. Minimal scarring versus atelectasis at the anterior right middle lobe. Remainder of the lung bases are clear. Pleural space: Near complete resolution of previously seen bilateral pleural effusions with minimal residual left-sided pleural fluid. Heart: Unremarkable. No significant pericardial effusion. Normal cardiac size. ABDOMEN: Liver: Unremarkable. No mass. Gallbladder and bile ducts: Unremarkable. No calcified stones. No ductal dilation. Pancreas: Unremarkable. No mass. No ductal dilation. Spleen: Unremarkable. No splenomegaly. Adrenals: Low-attenuation nodule within the right adrenal gland measuring 1.6 x 0.5 cm. Unremarkable left adrenal gland. Kidneys and ureters: Bilateral hydronephrosis and hydroureter, with no significant change in the interval. Stomach and bowel: Multiple small bowel loops dilated up to a maximum diameter of 3.4 cm consistent with small bowel obstruction, new or progressed in the interval and zone of transition likely at the level of the lower pelvic mass. PELVIS: Appendix: No findings to suggest acute appendicitis. Bladder and reproductive system: ere are multiple confluent heterogeneous pelvic masses, largest seen along the left side of the pelvis measuring 8.0 x 6.3 cm with additional heterogeneous pelvic masses anterior to the sacrum and second largest heterogeneous mass identified in the lower posterior pelvis, image 78, series 2 measuring 9.2 x 7.8 cm. This extends into the posterior aspect of the urinary bladder wall. Distinct normal ovaries or uterus are not visualized. ABDOMEN and PELVIS: Intraperitoneal space: Mild ascites in the upper abdomen, predominantly surrounding the liver and spleen. Mild free fluid within the posterior pelvis. No free air. Bones/joints: No acute fracture. No dislocation. Soft tissues: Unremarkable. Vasculature: Unremarkable. No abdominal aortic aneurysm. Lymph nodes: Unremarkable. No enlarged lymph nodes. IMPRESSION: 1. Small bowel obstruction with likely zone of transition at the level of the pelvic mass or pelvic metastases, new or progressed in the interval. 2. Bilateral hydronephrosis and hydroureter likely secondary to pelvic heterogeneous mass, stable in the interval. 3. Large heterogeneous pelvic mass at midline, given location, likely suggestive of uterine or ovarian neoplasm. Adjacent surrounding peritoneal implants with likely invasion of the urinary bladder and surrounding small bowel along with secondary small bowel obstruction and obstructive uropathy. Clinical correlation recommended pain 4. Mild free fluid in the pelvis and upper abdomen. 5. Nodule in the right adrenal gland otherwise incompletely characterized, cannot exclude neoplasm. This may be further assessed with three-phase CT or MRI exam or PET scan evaluation. Electronically signed by: Jessica Ruth MD 01/22/23 05:07 AM Supervising Physician Co-Signing Physician Notes Attending addendum: I have physically seen this patient, have supervised the medical residents activities, and agree with the H&P unless as otherwise noted. Assessment and Plan: Recurrent small bowel obstruction- Resolved spontaneously and most recent admission from 12/23-12/29/2022 Soon to transition outside of pelvic mass and metastases N.p.o. IV fluids Tylenol 1 g IV every 8 hours as needed for mild pain or fever General surgery consult Leiomyosarcoma with metastases- Seen by palliative care last admission CT with worsening masses Consult palliative care again Bilateral hydronephrosis- Associated with compression pelvic neoplasm Patient notes the presence of blood in urine, which was not present before Daytime team to determine if urology consult Resident Activity Tracking Resident Involvement: Resident Care Provided Care Provided: Adult Hospital Medicine
[2023-01-22] MEDS ORDERED: ACETAMINOPHEN 1,000 MG/100 ML VIAL IV STA (06:03)
[2023-01-22] MEDS ORDERED: KETOROLAC 30 MG/ML VIAL IV ONE ×2 (06:03→09:41)
--- NOTE | 2023-01-22 06:19 | Surgery Consultation ---
Date of Consultation January 22, 2023 Assessment & Plan (1) SBO (small bowel obstruction): The patient is being admitted on the medical service. We recommend proceeding as follows: Implement n.p.o. status Provide analgesics Provide antiemetics Provide IV fluid for hydration At the present time the patient's abdomen is soft and nondistended with minimal pain to palpation. The patient does not wish to have an NG tube placed at this time. I also discussed with patient the possibility of a venting G-tube and she says that she is not sure if she wishes to pursue this modality at this time as well. The patient did express interest in seeing if her small bowel obstruction will resolve merrily with hydration measures without any of the other modalities discussed as this has been successful in the past. I did discuss with the patient if her clinical scenario deteriorates consideration may need to be given to placing an NG tube or pursuing a venting G-tube and she expressed her understanding. Additional recommendations be forthcoming based on her clinical course as it unfolds Supervising Physician Co-Signing Physician Notes Patient seen and examined, labs imaging reviewed, agree with above. Well-known to me from prior port placement admissions for small bowel obstruction. Recurrent metastatic leiomyosarcoma with tethering of small bowel creating a small bowel obstruction. This is likely partial and chronic. She was just here in early December for the same problem. She feels better than she did last night, she is passing small amounts of gas. She is having this pain. On exam she is afebrile with stable vitals, abdomen is soft, mildly tender, mildly distended. CT personally reviewed and interpreted and agree with the assessment of a persistent small bowel obstruction with tethering near the site of the leiomyosarcoma recurrence. We will continue with nonoperative management for now. Given her surgical history and chemotherapy along with her metastatic disease, she is a poor candidate for any surgery, let alone at this facility. She has been in discussions with palliative care and is now considering palliative venting PEG tube. This will be performed by GI. Continue with n.p.o. for now, give her 24 hours of bowel rest. We may advance to clear liquids if still improving tomorrow. History of Present Illness Reason for Consultation: Small bowel obstruction History of Present Illness This is a 67-year-old female who is known to [facility] group general surgery. The patient was seen previously in consultation during a hospitalization in November of this year. 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 The patient has undergone a robotic assisted hysterectomy with bilateral salpingo oophorectomy in April 2021. Patient says that she was previously receiving chemotherapy but has not yet received any radiation therapy. The patient is currently not receiving any therapy and she was considering seeking additional opinion regarding her cancer from a GLASS FURNACE OPERATOR rn oncology. The patient has had multiple small bowel obstructions each time treated successfully in a conservative manner. During 1 of patient's previous admissions general surgery did introduce the idea of having a venting G-tube placed which the patient initially was considering but then decided that she did not want to pursue this modality. The patient presented the emergency department last evening she developed some nausea and vomiting and some abdominal pain. She denied any radiation of pain or modifying factors. She notes that she was able to have a bowel movement at approximate 11:00 PM last night but has had nothing since. Due to her history of multiple small bowel obstructions that she presented to the emergency department. Since arrival to hospital the patient has had labs and imaging which I independent reviewed. The patient had a CT scan of the abdomen and pelvis that showed patient had a small bowel obstruction with a suspected transition zone near the level of pelvic mass/metastases. This appears the have progressed since her most recent CT scan during previous hospitalization. Again the patient was noted to have a large pelvic mass in the midline with surrounding peritoneal implants. Labs include a CBC her white blood cell count and platelet count was normal. Hemoglobin and hematocrit were both noted to be 8.8 and 27.6 respectively. Chemistry profile showed sodium was 138 with a potassium of 3.4. BUN and creatinine were both within the normal range. At the time of my interview she was resting comfortably in bed and she was no distress. Allergies Allergy/AdvReac Type Severity Reaction Status Date / Time egg Allergy Intermediate "INFLAMMATORY Verified 12/22/22 10:38 REACTION" levofloxacin [From Levaquin] AdvReac Intermediate "didn't Verified 12/22/22 10:38 feel well." Home Medications Medication Instructions Recorded Confirmed Type thyroid (pork) 60 mg tablet 60 mg PO QAM 02/20/21 01/22/23 History ([place] Thyroid) cholecalciferol (vitamin D3) 50 50 mcg PO QAM 08/06/21 01/22/23 History mcg (2,000 unit) capsule eszopiclone 3 mg tablet (Lunesta) 3 mg PO HS PRN Sleep 08/11/21 01/22/23 History cyanocobalamin (vitamin B-12) 1,000 mcg subcut WK 11/28/22 01/22/23 History 1,000 mcg/mL injection solution ascorbic acid (vitamin C) 500 mg See Rx Instructions .Route .COMPLEX 12/08/22 01/22/23 History tablet (Vitamin C) alprazolam 0.25 mg tablet 0.25 mg PO Q8 PRN Anxiety 12/13/22 01/22/23 History dexamethasone 4 mg tablet 4 mg PO DAILY 01/22/23 01/22/23 History furosemide 20 mg tablet 20 mg PO DAILY 01/22/23 01/22/23 History morphine concentrate 100 mg/5 mL See Rx Instructions .Route .COMPLEX 01/22/23 01/22/23 History (20 mg/mL) oral solution Patient History Medical History Anxiety HIGH STRESS LEVEL OVER PAST FEW MONTHS, MULTIPLE DEATHS OF LOVED ONES IN THE PAST YR COPD (chronic obstructive pulmonary disease) NO CURRENT MEDS Family history of reaction to anesthesia MOM - SLOW TO WAKE UP Hepatitis HX HEPATITIS B History of anesthesia reaction "OVERLY SENSITIVE TO" - SLOW TO WAKE UP History of rheumatic fever Hydronephrosis Hypothyroidism Leiomyosarcoma of uterus (~03/2021) S/p hysterectomy and current chemo Lyme disease Fall 2020 Maintenance chemotherapy Currently receiving chemotherapy, last treatment 09/23/21. Mitral valve prolapse syndrome Per ECHO 07/2021 - MV normal in structure and function. Trace MR Port-A-Cath in place (10/02/21) Insertion Access Port, Left Internal Jugular, with Fluoroscopy(Left) - Arthur Presley, , FACS SBO (small bowel obstruction) Admitted 08/11/21 to 08/14/21 at [facility] - etiology likely adhesional per discharge summary SBO (small bowel obstruction) Snores ORAL APPLIANCE, NO HX SLEEP STUDY Spinal arachnoid cyst Vaginal bleeding Surgical History [place] [facility] [place]/O: hysterectomy Robotic Assisted Laparoscopic hysterectomy, Bilateral Salpingo-oopherectomy History of colonoscopy History of dilatation and curettage last 12/13/21 @ [place] with Dr. Schmitz History of parotid gland excision S/P appendectomy HX S/P tonsillectomy HX S/P wisdom tooth extraction HX Family History Father Heart disease Grandfather (Paternal) No problems noted. Grandfather (Maternal) No problems noted. Grandmother Colorectal cancer Mother Family history of colonic polyps History of anesthesia reaction overly sensitive to anesthesia Stroke Social History Smoking Status: Never smoker Second Hand Exposure: No; Do You Dip or Chew Tobacco: No; Hx Alcohol Use: No Hx Substance Use: No Preferred Language: Irish Communication Ability: Effective Visual Impairment: No Limitations Program Director/Morning Show Host Required: No Beliefs That Will Affect Care: None marital status: Current Living Situation: Spouse Current Living Situation Comment: With . current occupational status: retired How many Children do You have: 0 Feels Safe at Home: Yes Diet: regular Diet Comment: Juicing, raw vegetables, healthy choices during the past year weight has: remained stable Assistive Devices: Glasses Review of Systems Constitutional: no fever and no chills Ear, Nose, Mouth, Throat: no ear pain Respiratory: no cough and no dyspnea Cardiovascular: no chest pain Gastrointestinal: as per Subjective / HPI Genitourinary: no dysuria Musculoskeletal: no back pain Integumentary: no rash Neurologic: no localized weakness Physical Exam Constitutional: WD/WN, vitals as above Eyes: no conjunctival abnormality ENMT: Ears: no hearing impairment Neck: trachea midline Respiratory: normal respiratory effort; no respiratory distress and no labored breathing Cardiovascular: Rate/Rhythm: regular rate and regular rhythm Gastrointestinal (Abdomen): At the time of my exam the abdomen is soft and nondistended. There is no rebound tenderness or guarding. There is only minimal pain with palpation in the lower abdomen. Musculoskeletal: No calf tenderness Skin: no rashes Neurologic: moves all extremities Psychiatric: A+Ox3, euthymic affect Results & Data Vital Signs (Past 12 Hours) Vital Signs Temp Pulse Resp BP Pulse Ox O2 Del Method 01/22/23 04:10 99 01/22/23 04:10 117/63 01/22/23 03:20 69 16 98 01/22/23 03:10 67 12 97 01/22/23 03:00 73 18 97 01/22/23 03:00 120/62 01/22/23 02:50 74 16 96 01/22/23 02:40 76 18 97 01/22/23 02:30 76 16 96 01/22/23 02:24 84 22 98 01/22/23 02:24 128/67 01/22/23 02:20 71 14 97 01/22/23 02:10 71 16 97 01/22/23 02:00 66 14 99 01/22/23 01:57 68 16 99 01/22/23 01:56 70 01/22/23 01:09 37.2 C 67 12 141/78 H 98 Room Air PG Care Time/CCT Total # of Minutes Spent Total Time Spent with Patient: Total time spent is greater than 50% in coordination of care (as documented) at patient's floor/unit and/or counseling patient: Coding Level of Care Code 18566 INT INP/OBS CARE 3/75MIN Diagnoses SBO (small bowel obstruction) K56.609
--- NOTE | 2023-01-22 07:33 | Hospitalist Progress Note ---
Date of Service January 22, 2023 Assessment & Plan (1) SBO (small bowel obstruction): Plan: 67 yo female with PMHx of leiomyosarcoma with metastasis presents with abdominal pain. SBO -presented with hours of worsening abdominal pain with some nausea. No vomiting. Unable to control pain with home morphine suspension. -CT A/P: small bowel obstruction with likely zone of transition at the level of the pelvic mass or pelvic metastases interval -NPO, IVF, parenteral pain control, PPI -gen surg consulted- seen last visit, to further discuss venting G-tube Leiomyosarcoma with mets -chronic, worsening compared to one month ago -chronic daily dexamethasone -palliative care visit 12/29, no decisions made at this time acute on chronic Bilateral hydronephrosis, renal function stable -due to mass effect from worsening mets. Also now with new onset hematuria. -consider urology consult if Cr worsenes DVT ppx: Code Status: DNR/DNI (2) Palliative care encounter: Plan: patient open discussed with that she feels it may be time to transition to outpatient hospice palliative care. Did meet Dr. Roman in the hospital today. Dr. Roman did help manage her symptom control medications. (3) Leiomyosarcoma of uterus: Subjective patient was in the ER intermittent distress pain is mostly in lower abdomen, concern for bowel obstruction is associated with her lower pelvic mass. Patient wishes to avoid opiates for pain control. Physical Exam Physical Exam: Awake and pleasant engaged. Abdomen is with hypoactive but present bowel sounds soft nontender no pedal splenomegaly Results & Data Results & Data Vital Signs (Past 12 Hours) Vital Signs Temp Pulse Resp BP Pulse Ox O2 Del Method 01/22/23 04:10 99 01/22/23 04:10 117/63 01/22/23 03:20 69 16 98 01/22/23 03:10 67 12 97 01/22/23 03:00 73 18 97 01/22/23 03:00 120/62 01/22/23 02:50 74 16 96 01/22/23 02:40 76 18 97 01/22/23 02:30 76 16 96 01/22/23 02:24 84 22 98 01/22/23 02:24 128/67 01/22/23 02:20 71 14 97 01/22/23 02:10 71 16 97 01/22/23 02:00 66 14 99 01/22/23 01:57 68 16 99 01/22/23 01:56 70 01/22/23 01:09 99.0 F 67 12 141/78 H 98 Room Air PG Care Time/CCT Total # of Minutes Spent Total Time Spent with Patient: Total time spent is greater than 50% in coordination of care (as documented) at patient's floor/unit and/or counseling patient: Coding Level of Care Code None Diagnoses SBO (small bowel obstruction) K56.609 Palliative care encounter Z51.5 Leiomyosarcoma of uterus C55
[2023-01-22] MEDS ORDERED: POTASSIUM CHLORIDE 20 MEQ in SODIUM CHLORIDE 0.9% 500 ML IV SCH (07:42)
[2023-01-22] MEDS: NSS + 20MEQ KCL 20 MEQ/1,000 ML BAG IV SCH ×2 (08:38→17:14)
[2023-01-22] MEDS ORDERED: KETOROLAC 30 MG/ML VIAL ONE (09:57)
[2023-01-22] MEDS ORDERED: HYDROmorphone INJ 0.5 MG/0.5 ML SYR IV PRN (10:57)
[2023-01-22] MEDS ORDERED: DEXAMETHASONE SOD INJ 4 MG/ML VIAL IV STA (11:23)
--- NOTE | 2023-01-22 12:31 | Palliative Care Consultation ---
Date of Consultation January 22, 2023 Assessment & Plan (1) Abdominal pain: with SBO and metastatic leiomyosarcoma of the uterus John's preference is to avoid opioids if possible but she has had increasing pain. She is agreeable to order for opioid as needed if other interventions are not effective. She does not feel that morphine was effective. Will rotate to hydromorphone with 0.25mg for moderate and 0.5mg for severe pain as needed. She has noticed improvement in her symptoms with decadron and was taking 2mg at home. Will increase to 4mg BID Abdominal location: generalized Qualified Code(s): R10.84 - Generalized abdominal pain (2) Nausea: Continue zofran (3) Palliative care encounter: John and I have had multiple discussions about how she is coping with her illness and what her goals are moving forward. She decided after last admission, not to continue palliative radiation and had hoped to have some quiet time at home to think about things. She was able to have some good time in the last month. She realizes that she is approaching her dying time. Her hope would be to be at home unless her family was not able to manage her care. She has discussed hospice recently with her PCP and told me that she thought she was too good for hospice right now. We reviewed her goals which are not to pursue further aggressive cancer treatment and to be at home until her . Her greatest worry is having uncontrolled pain. Hospice would be able to help with these goals and is consistent with what she wants for her care at this time. She tells me that she would like to transition to hospice when she goes home. We discussed option of venting PEG tube to help manage her symptoms as obstruction is likely to be an ongoing problem for her even if current obstruction improves. She is considering this and would like to talk to her family. Will follow. History of Present Illness Reason for Consultation: symptom management, goals of care Attending Physician: Dr. Toure History of Present Illness 67 yo lady with metastatic leiomyosarcoma with peritoneal metastases who has had recurrent admissions for small bowel obstruction. She had been at home with home care support for about a month but developed increased abdominal pain and nausea that was not relieved with SL roxanol. She is unsure what dose she was taking at home but has generally avoided opioids for symptom relief due to concerns of sedation and cognition. She has had ongoing vaginal bleeding and also developed hematuria though hemoglobin has been relatively stable at 8.8. CT on admission shows SBO at level of pelvic mass with bilateral hydronephrosis and peritoneal implants with likely bladder invasion, surrounding small bowel and causing obstructive uropathy. There are multiple confluent pelvic masses, the largest of which have increased in size from prior study on 12/13/22. John complains of severe abdominal pain with some nausea. She had temporary relief with 2mg IV morphine on presentation and has also had IV tylenol and toradol. She has been on decadron at home for palliation as well. Allergies Allergy/AdvReac Type Severity Reaction Status Date / Time egg Allergy Intermediate "INFLAMMATORY Verified 12/22/22 10:38 REACTION" levofloxacin [From Levaquin] AdvReac Intermediate "didn't Verified 12/22/22 10:3 8 feel well." Home Medications Medication Instructions Recorded Confirmed Type thyroid (pork) 60 mg tablet 60 mg PO QAM 02/20/21 01/22/23 History ([place] Thyroid) cholecalciferol (vitamin D3) 50 50 mcg PO QAM 08/06/21 01/22/23 History mcg (2,000 unit) capsule eszopiclone 3 mg tablet (Lunesta) 3 mg PO HS PRN Sleep 08/11/21 01/22/23 History cyanocobalamin (vitamin B-12) 1,000 mcg subcut WK 11/28/22 01/22/23 History 1,000 mcg/mL injection solution ascorbic acid (vitamin C) 500 mg See Rx Instructions .Route .COMPLEX 12/08/22 01/22/23 History tablet (Vitamin C) alprazolam 0.25 mg tablet 0.25 mg PO Q8 PRN Anxiety 12/13/22 01/22/23 History dexamethasone 4 mg tablet 4 mg PO DAILY 01/22/23 01/22/23 History furosemide 20 mg tablet 20 mg PO DAILY 01/22/23 01/22/23 History morphine concentrate 100 mg/5 mL See Rx Instructions .Route .COMPLEX 01/22/23 01/22/23 History (20 mg/mL) oral solution Patient History Medical History Anxiety HIGH STRESS LEVEL OVER PAST FEW MONTHS, MULTIPLE DEATHS OF LOVED ONES IN THE PAST YR COPD (chronic obstructive pulmonary disease) NO CURRENT MEDS Family history of reaction to anesthesia MOM - SLOW TO WAKE UP Hepatitis HX HEPATITIS B History of anesthesia reaction "OVERLY SENSITIVE TO" - SLOW TO WAKE UP History of rheumatic fever Hydronephrosis Hypothyroidism Leiomyosarcoma of uterus (~03/2021) S/p hysterectomy and current chemo Lyme disease Fall 2020 Maintenance chemotherapy Currently receiving chemotherapy, last treatment 09/23/21. Mitral valve prolapse syndrome Per ECHO 07/2021 - MV normal in structure and function. Trace MR Port-A-Cath in place (10/02/21) Insertion Access Port, Left Internal Jugular, with Fluoroscopy(Left) - Arthur Presley, , FACS SBO (small bowel obstruction) Admitted 08/11/21 to 08/14/21 at [facility] - etiology likely adhesional per discharge summary SBO (small bowel obstruction) Snores ORAL APPLIANCE, NO HX SLEEP STUDY Spinal arachnoid cyst Vaginal bleeding Surgical History H[place] [facility] [place]: hysterectomy Robotic Assisted Laparoscopic hysterectomy, Bilateral Salpingo-oopherectomy History of colonoscopy History of dilatation and curettage last 03/11/21 @ [place] with Dr. Shcmitz History of parotid gland excision S/P appendectomy HX S/P tonsillectomy HX S/P wisdom tooth extraction HX Family History Father Heart disease Grandfather (Paternal) No problems noted. Grandfather (Maternal) No problems noted. Grandmother Colorectal cancer Mother Family history of colonic polyps History of anesthesia reaction overly sensitive to anesthesia Stroke Social History Smoking Status: Never smoker Second Hand Exposure: No; Do You Dip or Chew Tobacco: No; Hx Alcohol Use: No Hx Substance Use: No Preferred Language: German Communication Ability: Effective Visual Impairment: No Limitations Physical Security Manager Required: No Beliefs That Will Affect Care: None marital status: Current Living Situation: Spouse Current Living Situation Comment: With . current occupational status: retired How many Children do You have: 0 Feels Safe at Home: Yes Diet: regular Diet Comment: Juicing, raw vegetables, healthy choices during the past year weight has: remained stable Assistive Devices: Glasses Review of Systems Review of Systems: ESAS Pain 2/3 Dyspnea 0/3 Nausea 1/3 Drowsiness 0/3 Physical Exam Constitutional: + ill appearing; + uncomfortable Respiratory: normal respiratory effort; no labored breathing Cardiovascular: Rate/Rhythm: regular rate and regular rhythm Gastrointestinal (Abdomen): distension, tender to palpation Musculoskeletal: Extremities: + muscle atrophy Neurologic: Speech / Cognition: normal cognition Results & Data Vital Signs (Past 12 Hours) Vital Signs Temp Pulse Pulse Resp BP BP Pulse Ox 01/22/23 10:57 73 01/22/23 09:12 70 20 135/70 97 01/22/23 04:10 99 01/22/23 04:10 117/63 01/22/23 03:20 69 16 98 01/22/23 03:10 67 12 97 01/22/23 03:00 73 18 97 01/22/23 03:00 120/62 01/22/23 02:50 74 16 96 01/22/23 02:40 76 18 97 01/22/23 02:30 76 16 96 01/22/23 02:24 84 22 98 01/22/23 02:24 128/67 01/22/23 02:20 71 14 97 01/22/23 02:10 71 16 97 01/22/23 02:00 66 14 99 01/22/23 01:57 68 16 99 01/22/23 01:56 70 01/22/23 01:09 99.0 F 67 12 141/78 H 98 O2 Del Method 01/22/23 10:57 01/22/23 09:12 Room Air 01/22/23 04:10 01/22/23 04:10 01/22/23 03:20 01/22/23 03:10 01/22/23 03:00 01/22/23 03:00 01/22/23 02:50 01/22/23 02:40 01/22/23 02:30 01/22/23 02:24 01/22/23 02:24 01/22/23 02:20 01/22/23 02:10 01/22/23 02:00 01/22/23 01:57 01/22/23 01:56 01/22/23 01:09 Room Air PG Care Time/CCT Total # of Minutes Spent Total Time Spent: 65 Total Time Spent with Patient: Total time spent is greater than 50% in coordination of care (as documented) at patient's floor/unit and/or counseling patient:[id number] symptom management, goals of care, hospice, prognosis, patient education and support Coding Level of Care Code 28394 INT INP/OBS CARE 2/55MIN Diagnoses Abdominal pain R10.84 Abdominal location: generalized Nausea R11.0 Palliative care encounter Z51.5
[2023-01-22] MEDS ORDERED: MoRPHine SULFATE 2 MG/ML CARP IV PRN (12:43)
[2023-01-22] MEDS ORDERED: ACETAMINOPHEN 1,000 MG/100 ML VIAL IV PRN (12:43)
[2023-01-22] MEDS ORDERED: LORazepam 2 MG/1 ML VIAL IV PRN (12:43)
[2023-01-22] MEDS ORDERED: CHECK fentaNYL PATCH PLACEMENT SCH (12:43)
[2023-01-22] MEDS: PANTOprazole 40 MG in SYRINGE 0 ML IV SCH (13:48)
[2023-01-22] MEDS: HEPARIN SOD 5,000 UNIT/0.5 ML VIAL SQ SCH ×2 (13:48→20:40)
[2023-01-22] MEDS ORDERED: KETOROLAC TROMETHAMINE 15 MG/ML VIAL IV PRN (16:42)
[2023-01-22] MEDS: dexAMETHasone 4 MG in SYRINGE 0 ML IV SCH (21:01)
--- NOTE | 2023-01-22 21:31 | Billing Data ---
Date of Service January 22, 2023 Coding Level of Care Code 76814 INT INP/OBS CARE
[2023-01-23] MEDS: HEPARIN 100 UNIT/ML 5ML FLUSH FLUSH PRN (03:22)
[2023-01-23] MEDS: NSS + 20MEQ KCL 20 MEQ/1,000 ML BAG IV SCH ×2 (06:40→12:42)
--- NOTE | 2023-01-23 08:40 | XRay Report ---
KUB HISTORY: Acute generalized abdominal pain with reported small bowel obstruction eval SBO COMPARISON: CT 01/22/2023 FINDINGS: Moderate fecal retention in the left hemicolon. Nonobstructive bowel gas pattern. No signif icant small bowel distention is identified. A well-defined pelvic opacity. No renal calculi. No urete ral calculi. No pneumoperitoneum or pneumatosis. No fracture. IMPRESSION: 1. The small bowel obstruction described on yesterday's CT examination is not appreciated by radiogra phy. Continued follow-up recommended. 2. Ill-defined pelvic opacity correlates with the malignant pelvic masses seen on the comparison CT e xamination. ACT 112: Negative or not required by law. The above report was generated using voice recognition software. It may contain grammatical, syntax o r spelling errors. Electronically signed by: Troy Springer M.D. 01/23/2023 8:37 AM
[2023-01-23] MEDS: HEPARIN SOD 5,000 UNIT/0.5 ML VIAL SQ SCH ×2 (09:20→21:06)
[2023-01-23] MEDS: dexAMETHasone 4 MG in SYRINGE 0 ML IV SCH ×2 (09:20→21:06)
[2023-01-23] MEDS: HYDROmorphone INJ 0.5 MG/0.5 ML SYR IV PRN ×3 (10:44→21:02)
[2023-01-23] MEDS: ONDANSETRON INJ 2 MG/ML 2 ML VIAL IV PRN (10:48)
--- NOTE | 2023-01-23 11:06 | Hospitalist Progress Note ---
Date of Service January 23, 2023 Assessment & Plan (1) SBO (small bowel obstruction): Plan: 67 yo female with PMHx of leiomyosarcoma with mets presents with abdominal pain. SBO on presentation resolved on KUB 01/23/23 -presented with uncontrolled abdominal pain with some nausea. Unable to control pain with home morphine suspension -gen surg consulted- no plans of venting G-tube as issues have resolved Leiomyosarcoma with mets, pain control not optimized -chronic, worsening compared to one month ago -palliative consulted- pt states she maybe ready for home hospice at discharge will attempt use of oral dilaudid for pain control as pt feels oral morphine di d not work well continues on bid decadron Bilateral hydronephrosis -due to mass effect from worsening mets. Also now with new onset hematuria. -pt urinating freely, renal function seems intact DVT ppx: SCDs, ambulation moderate to severe protein malnutrition, start low residual diet Code Status: DNR/DNI (2) Palliative care encounter: Plan: did see Dr Roman 01/22 (3) Leiomyosarcoma of uterus: Admission and Anticipated Discharge Date Admission Date: January 22, 2023 Results & Data Results & Data Vital Signs (Past 12 Hours) Vital Signs Temp Pulse Resp BP Pulse Ox O2 Del Method 01/23/23 07:58 100.4 F H 127 H 17 103/51 L 100 Room Air 01/23/23 06:24 98.2 F 116 H 18 114/63 99 Room Air 01/23/23 02:00 98.4 F 83 18 104/51 L 93 Room Air 01/22/23 23:10 97.7 F 78 18 111/69 100 Room Air PG Care Time/CCT Total # of Minutes Spent Total Time Spent with Patient: Total time spent is greater than 50% in coordination of care (as documented) at patient's floor/unit and/or counseling patient: Coding Level of Care Code 11649 SUB INP/OBS CARE 2/35MIN Diagnoses SBO (small bowel obstruction) K56.609 Palliative care encounter Z51.5 Leiomyosarcoma of uterus C55
--- NOTE | 2023-01-23 12:24 | Surgery Progress Note ---
Date of Service January 23, 2023 Assessment & Plan (1) SBO (small bowel obstruction): Plan: Recurrent SBO appears to be resolving, likely will have worsening symptoms as disease progresses. She has been in discussion with palliative care and is now willing to get a venting PEG tube. This can be performed as an outpatient. Advance to clear liquids, will likely need to be on some form of liquid or pured low fiber diet As long as she can control her pain and keep yourself hydrated and and well- nourished, she may be discharged from general surgery standpoint As the patient is not desiring any type of surgical intervention and is moving towards hospice care, surgery will follow peripherally, call with questions or concerns (2) Leiomyosarcoma of uterus: Admission and Anticipated Discharge Date Admission Date: January 22, 2023 Subjective Recurrent leiomyosarcoma with recurrent SBO. She has been passing gas and is felt better. She did have significant cramping early this morning that was quite severe. This is resolved Physical Exam Constitutional: WD/WN, vitals as above Gastrointestinal (Abdomen): normal bowel sounds, soft, nontender, no hepatosplenomegaly Results & Data Vital Signs (Past 12 Hours) Vital Signs Temp Pulse Resp BP Pulse Ox O2 Del Method 01/23/23 07:58 38.0 C H 127 H 17 103/51 L 100 Room Air 01/23/23 06:24 36.8 C 116 H 18 114/63 99 Room Air 01/23/23 02:00 36.9 C 83 18 104/51 L 93 Room Air Diagnostic Findings Personally viewed and interpreted the KUB from this morning, agree with the assessment that there is no evidence of persistent bowel obstruction on KUB KUB HISTORY: Acute generalized abdominal pain with reported small bowel obstruction eval SBO COMPARISON: CT 01/22/2023 FINDINGS: Moderate fecal retention in the left hemicolon. Nonobstructive bowel gas pattern. No significant small bowel distention is identified. A well-defined pelvic opacity. No renal calculi. No ureteral calculi. No pneumoperitoneum or pneumatosis. No fracture. IMPRESSION: 1. The small bowel obstruction described on yesterday's CT examination is not appreciated by radiography. Continued follow-up recommended. 2. Ill-defined pelvic opacity correlates with the malignant pelvic masses seen on the comparison CT examination. PG Care Time/CCT Total # of Minutes Spent Total Time Spent with Patient: Total time spent is greater than 50% in coordination of care (as documented) at patient's floor/unit and/or counseling patient: Coding Level of Care Code 21977 SUB INP/OBS CARE MIN Diagnoses SBO (small bowel obstruction) K56.609 Leiomyosarcoma of uterus C55
[2023-01-23] MEDS ORDERED: HYDROmorphone HCL 2 MG TAB PO PRN (12:42)
[2023-01-23] MEDS: PANTOprazole 40 MG in SYRINGE 0 ML IV SCH (12:54)
--- NOTE | 2023-01-23 15:47 | Emergency Department Note ---
Impression & Plan SBO (small bowel obstruction) Admit to the [facility] ED Provider Note NAME: PHONG DOW AGE: 67 SEX: Female INFORMANT: Patient ED PROVIDER(S): Edelmira Crocker DO CHIEF COMPLAINT: Epigastric abdominal pain PLAN: Disposition: Admit to the [facility] MEDICAL DECISION MAKING: This is a 67-year-old female patient with a history of leiomyosarcoma who presents to the emergency department with a fairly sudden onset of epigastric and upper abdominal pain that led to vomiting. She has a recurrent history of small bowel obstructions secondary to the above diagnosis. She believes that she has another bowel obstruction. Laboratory studies reveal no acute leukocy tosis. The patient is anemic with a hemoglobin of 8.8 but this is baseline for her. There is no evidence of GONSALO. Glucose was stable. Care/management discussed with: ED case management and the [facility] service. Triage Nursing notes: reviewed and agree with them. Vital Signs: reviewed and remarkable for tachycardia Chronic Medical/Social Conditions affecting care: LMS-palliative care Prior/ Outside/ External records reviewed: Previous inpatient notes Differential Diagnosis: Worsening metastatic disease, recurrent small bowel obstruction, gastritis, perforated viscus Diagnostics, independently interpreted by me: Cardiac Monitoring: Sinus tachycardia at 106 Imaging studies: CT scan of the abdomen/pelvis: See radiology report HPI: 67 year old Female arrives for evaluation of epigastric abdominal pain. Around 7 PM this evening, the patient developed significant nausea and upper abd ominal pain. Patient has a history of leiomyosarcoma with recurrent small bowel obstructions. She believes that she has another obstruction. She was unable to keep down even liquids. PAST MEDICAL HISTORY: See Below, PAST SURGICAL HISTORY: See Below, SOCIAL HISTORY: See Below, HOME MEDICATIONS: See list ALLERGIES: See list VITALS: See Below PHYSICAL EXAMINATION: HEENT: Head - normocephalic and atraumatic. Pupils are equal, round, and reactive to light. Extraocular eye muscles are intact, and sclera are anicteric. Nose - moist nasal mucosa without discharge. Mouth - moist buccal mucosa. Oropharynx is nonerythematous and there is no tonsillar exudate or edema noted. Neck: Supple; no cervical lymphadenopathy Heart: Tachycardic rate and regular rhythm there is a normal S1 and S2 with no murmurs, clicks, or gallops appreciated. Lungs: Clear to auscultation bilaterally with no wheezes, rales, or rhonchi. Abdomen: Soft but exquisitely tender to palpation in the epigastrium. Moderate ly distended with absent bowel sounds. There are no palpable pulsatile masses or hepatosplenomegaly. There is no guarding, rigidity, or rebound noted. Extremities: No evidence of cyanosis, clubbing, or edema. There are easily palpable peripheral pulses. Skin: warm and dry with good turgor and no rashes. ED treatment: equipment monitor phototypesetting, IV normal saline bolus, IV Zofran, IV morphine Emergency department course: The patient was evaluated in room C6. Patient was bolused with IV normal saline solution. An order was placed for continuous cardiac monitoring. The patient was in sinus tachycardia at a rate of 106. She was given a dose of IV morphine and IV Zofran for her pain and nausea. She went for CT scan of the abdomen/pelvis. This did confirm that she had a small bowel obstruction. I discussed the case with the [facility] Hospitalist and they will evaluate for further inpatient care. Past Med/Surg History Medical History Anxiety HIGH STRESS LEVEL OVER PAST FEW MONTHS, MULTIPLE DEATHS OF LOVED ONES IN THE PAST YR COPD (chronic obstructive pulmonary disease) NO CURRENT MEDS Family history of reaction to anesthesia MOM - SLOW TO WAKE UP Hepatitis HX HEPATITIS B History of anesthesia reaction "OVERLY SENSITIVE TO" - SLOW TO WAKE UP History of rheumatic fever Hydronephrosis Hypothyroidism Leiomyosarcoma of uterus (~03/2021) S/p hysterectomy and current chemo Lyme disease Fall 2020 Maintenance chemotherapy Currently receiving chemotherapy, last treatment 09/23/21. Mitral valve prolapse syndrome Per ECHO 07/2021 - MV normal in structure and function. Trace MR Port-A-Cath in place (10/02/21) Insertion Access Port, Left Internal Jugular, with Fluoroscopy(Left) - Arthur Presley DO, FACS SBO (small bowel obstruction) Admitted 08/11/21 to 08/14/21 at [facility] - etiology likely adhesional per discharge summary SBO (small bowel obstruction) Snores ORAL APPLIANCE, NO HX SLEEP STUDY Spinal arachnoid cyst Vaginal bleeding Surgical History H/O carotid endarterectomy [facility] [place] H/O: hysterectomy Robotic Assisted Laparoscopic hysterectomy, Bilateral Salpingo-oopherectomy History of colonoscopy History of dilatation and curettage last 03/11/21 @ [place] with Dr. Schmitz History of parotid gland excision S/P appendectomy HX S/P tonsillectomy HX S/P wisdom tooth extraction HX Family History Father Heart disease Grandfather (Paternal) No problems noted. Grandfather (Maternal) No problems noted. 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 current occupational status: retired How many Children do You have: 0 Feels Safe at Home: Yes Diet: regular Diet Comment: Juicing, raw vegetables, healthy choices during the past year weight has: remained stable Assistive Devices: Walker Allergies Allergies Allergy/AdvReac Type Severity Reaction Status Date / Time egg Allergy Intermediate "INFLAMMATORY Verified 12/22/22 10:38 REACTION" levofloxacin [From Levaquin] AdvReac Intermediate "didn't Verified 12/22/22 10:38 feel well." Home Meds Home Medications Medication Instructions Recorded Confirmed thyroid (pork) 60 mg tablet 60 mg PO QAM 02/20/21 01/22/23 ([place] Thyroid) cholecalciferol (vitamin D3) 50 50 mcg PO QAM 08/06/21 01/22/23 mcg (2,000 unit) capsule eszopiclone 3 mg tablet (Lunesta) 3 mg PO HS PRN Sleep 08/11/21 01/22/23 cyanocobalamin (vitamin B-12) 1,000 mcg subcut WK 11/28/22 01/22/23 1,000 mcg/mL injection solution ascorbic acid (vitamin C) 500 mg See Rx Instructions .Route .COMPLEX 12/08/22 01/22/23 tablet (Vitamin C) alprazolam 0.25 mg tablet 0.25 mg PO Q8 PRN Anxiety 12/13/22 01/22/23 dexamethasone 4 mg tablet 4 mg PO DAILY 01/22/23 01/22/23 furosemide 20 mg tablet 20 mg PO DAILY 01/22/23 01/22/23 morphine concentrate 100 mg/5 mL See Rx Instructions .Route .COMPLEX 01/22/23 01/22/23 (20 mg/mL) oral solution Results & Data (ED) Laboratory Data 01/22/23 01:50 01/22/23 01:50 Lab Results 01/22/23 01/22/23 Range/Units 01:50 01:50 WBC 8.48 (4.8-10.8) K/ul RBC 2.78 L (4.20-5.40) M/uL Hgb 8.8 L (12.0-16.0) g/dl Hct 27.6 L (37.0-47.0) % MCV 99.3 (80.0-100.0) fL MCH 31.7 (25.0-34.0) pg MCHC 31.9 L (32.0-36.0) g/dL RDW Std Deviation 73.0 H (36.4-46.3) fL RDW Coeff of Elvi 20.3 H (11.5-14.5) % Plt Count 263 (130-400) K/uL MPV 9.0 L (9.4-12.4) fL Immature Gran % (Auto) 0.7 % Neut % (Auto) 86.0 % Lymph % (Auto) 8.6 % [place] % (Auto) 4.4 % Eos % (Auto) 0.2 % Baso % (Auto) 0.1 % Neut # (Auto) 7.29 H (1.40-6.50) K/uL Lymph # (Auto) 0.73 L (1.20-3.40) K/uL [place] # (Auto) 0.37 (0.11-0.59) K/uL Eos # (Auto) 0.02 (0.00-0.50) K/uL Baso # (Auto) 0.01 (0.00-0.20) K/uL Immature Gran # (Auto) 0.06 (0.01-0.20) K/uL Anisocytosis Present Sodium 138 (136-145) mmol/L Potassium 3.4 L (3.5-5.1) mmol/L Chloride 103 (98-107) mmol/L Carbon Dioxide 29 (21-32) mmol/L Anion Gap 6 (3-11) BUN 17 (6-23) mg/dl Creatinine 0.62 (0.6-1.2) mg/dl Est Cr Clr Drug Dosing 65.9 ml/min Est GFR ( Amer) 108.9 ml/min Est GFR (Non-Af Amer) 94.0 ml/min BUN/Creatinine Ratio 27.4 H (10-20) Glucose 85 (70-99(Fasting)) mg/dl Calcium 8.4 L (8.6-10.3) mg/dl Administered Medications Heparin Sodium (Porcine) (Heparin Sod 5,000 Unit/0.5 Ml Vial) 5,000 units SQ Q12 [facility] Stop: 02/21/23 13:14 Last Admin: 01/23/23 09:20 Dose: Not Given Documented By: Admin: 01/22/23 20:40 Dose: Not Given Documented By: Admin: 01/22/23 13:48 Dose: Not Given Documented By: JOSEMANUEL Heparin Sodium (Porcine) (Heparin 100 Unit/Ml 5ml Flush) 5 ml FLUSH PRN PRN PRN Reason: Flush Stop: 02/22/23 01:39 Last Admin: 01/23/23 03:22 Dose: 5 ml Documented By: TITO Hydromorphone HCl (Hydromorphone Inj 0.5 Mg/0.5 Ml Syr) 0.5 mg IV Q2H PRN PRN Reason: Pain 6-10 Stop: 02/05/23 10:56 Last Admin: 01/23/23 12:54 Dose: 0.5 mg Documented By: Admin: 01/23/23 10:44 Dose: 0.5 mg Documented By: EMMA Dexamethasone 4 mg/ Syringe 1 mls @ 1 mls/min IV BID [facility] Stop: 02/21/23 20:59 Last Admin: 01/23/23 09:20 Dose: 1 mls/min Documented By: Admin: 01/22/23 21:01 Dose: 1 mls/min Documented By: JÚNIOR Pantoprazole Sodium 40 mg/ (Syringe) 10 mls @ 5 mls/min IV DAILY@1100 HERBIE Stop: 02/21/23 13:14 Last Admin: 01/23/23 12:54 Dose: 5 mls/min Documented By: Admin: 01/22/23 13:48 Dose: 5 mls/min Documented By: JOSEMANUEL Ketorolac Tromethamine (Ketorolac Tromethamine 15 Mg/Ml Vial) 15 mg IV Q6H PRN PRN Reason: Moderate Pain (Scale 4, 5, 6) Stop: 01/23/23 16:41 Last Admin: 01/23/23 06:45 Dose: 15 mg Documented By: TITO Ondansetron HCl (Ondansetron Inj 2 Mg/Ml 2 Ml Vial) 4 mg IV Q6H PRN PRN Reason: Nausea Stop: 02/21/23 12:42 Last Admin: 01/23/23 10:48 Dose: 4 mg Documented By: EMMA Discontinued Medications Dexamethasone (Dexamethasone Sod Inj 4 Mg/Ml Vial) 4 mg IV NOW STA Stop: 01/22/23 11:24 Last Admin: 01/22/23 12:12 Dose: 4 mg Documented By: NANCI Sodium Chloride (Nss) 500 mls @ 999 mls/hr IV .Q31M ONE Stop: 01/22/23 03:23 Last Infusion: 01/22/23 03:20 Dose: 0 mls/hr Documented By: Admin: 01/22/23 02:42 Dose: 999 mls/hr Documented By: ILYA Sodium Chloride (Nss) 500 mls @ 125 mls/hr IV .Q4H HERBIE Stop: 02/21/23 05:14 Last Infusion: 01/22/23 13:26 Dose: 0 mls/hr Documented By: Admin: 01/22/23 06:22 Dose: 125 mls/hr Documented By: ILYA Acetaminophen (Ofirmev) 1,000 mg in 100 mls @ 400 mls/hr IV NOW STA Stop: 01/22/23 06:17 Last Infusion: 01/22/23 13:25 Dose: 0 mls/hr Documented By: Admin: 01/22/23 06:28 Dose: 400 mls/hr Documented By: ILYA Potassium Chloride/Sodium Chloride (Normal Saline W/20 Meq Kcl) 20 meq in 1,000 mls @ 125 mls/hr IV .Q8H HERBIE Stop: 02/21/23 08:29 Last Admin: 01/23/23 12:42 Dose: Not Given Documented By: Infusion: 01/23/23 12:42 Dose: 0 mls/hr Documented By: Infusion: 01/23/23 09:21 Dose: 125 mls/hr Documented By: Admin: 01/23/23 06:40 Dose: 125 mls/hr Documented By: Infusion: 01/23/23 03:21 Dose: 0 mls/hr Documented By: Admin: 01/22/23 17:14 Dose: 125 mls/hr Documented By: Infusion: 01/22/23 16:38 Dose: 125 mls/hr Documented By: Admin: 01/22/23 08:38 Dose: 125 mls/hr Documented By: NANCI Ioversol (Optiray 320 100ml) 100 ml IV ONCE ONE Stop: 01/22/23 03:32 Last Admin: 01/22/23 03:31 Dose: 90 ml Documented By: DAVID Ketorolac Tromethamine (Ketorolac 30 Mg/Ml Vial) 30 mg IV NOW ONE Stop: 01/22/23 06:04 Last Admin: 01/22/23 06:28 Dose: Not Given Documented By: ILYA Ketorolac Tromethamine (Ketorolac 30 Mg/Ml Vial) 30 mg IV NOW ONE Stop: 01/22/23 09:42 Last Admin: 01/22/23 11:05 Dose: 30 mg Documented By: NANCI Ketorolac Tromethamine (Ketorolac 30 Mg/Ml Vial) Confirm Administered Dose 30 mg .ROUTE .STK-MED ONE Stop: 01/22/23 09:58 Last Admin: 01/22/23 11:06 Dose: Not Given Documented By: NANCI Morphine Sulfate (Morphine Sulfate 2 Mg/Ml Carp) Confirm Administered Dose 2 mg .ROUTE .STK-MED ONE Stop: 01/22/23 02:31 Last Admin: 01/22/23 02:42 Dose: 2 mg Documented By: ILYA Morphine Sulfate (Morphine Sulfate 2 Mg/Ml Carp) 2 mg IV NOW STA Stop: 01/22/23 02:55 Last Admin: 01/22/23 03:03 Dose: Not Given Documented By: ILYA Ondansetron HCl (Ondansetron Inj 2 Mg/Ml 2 Ml Vial) Confirm Administered Dose 4 mg .ROUTE .STK-MED ONE Stop: 01/22/23 02:31 Last Admin: 01/22/23 02:42 Dose: 4 mg Documented By: ILYA Ondansetron HCl (Ondansetron Inj 2 Mg/Ml 2 Ml Vial) 4 mg IV NOW STA Stop: 01/22/23 02:55 Last Admin: 01/22/23 03:03 Dose: Not Given Documented By: ILYA Discharge Plan Visit Data Chief Complaint: Abdominal Pain ED Provider: Edelmira Crocker Discharge Problem: SBO (small bowel obstruction) Patient Disposition: Admitted As Inpatient Discharge Instructions Interventions: ED Discharge Assessment Last Done: 01/22/23 12:40
[2023-01-23] MEDS ORDERED: predniSONE 10 MG TABLET PO STA (20:50)
[2023-01-23] MEDS ORDERED: LACTATED RINGER'S 1,000 ML IV SCH (21:00)
[2023-01-23] MEDS: ACETAMINOPHEN 500 MG TAB PO SCH (21:05)
[2023-01-24] MEDS: HYDROmorphone INJ 0.5 MG/0.5 ML SYR IV PRN (02:22)
[2023-01-24] MEDS ORDERED: LACTATED RINGER'S 1,000 ML IV ONE (04:34)
[2023-01-24] MEDS ORDERED: KETOROLAC TROMETHAMINE 15 MG/ML VIAL IV ONE (04:38)
[2023-01-24] MEDS ORDERED: SODIUM CHLORIDE 0.9% 500 ML IV ONE (09:30)
[2023-01-24] MEDS ORDERED: ALBUMIN 25% 12.5 GM/50 ML VIAL IV ONE (09:30)
[2023-01-24] MEDS: ACETAMINOPHEN 500 MG TAB PO SCH ×3 (10:04→20:45)
[2023-01-24] MEDS: HEPARIN SOD 5,000 UNIT/0.5 ML VIAL SQ SCH ×2 (10:05→20:45)
[2023-01-24] MEDS: KETOROLAC TROMETHAMINE 15 MG/ML VIAL IV PRN (10:06)
[2023-01-24] MEDS: dexAMETHasone 4 MG in SYRINGE 0 ML IV SCH ×2 (10:13→20:49)
[2023-01-24] MEDS: PANTOprazole 40 MG in SYRINGE 0 ML IV SCH (10:54)
[2023-01-24] MEDS ORDERED: SENNOSIDES 8.8 MG/5 ML UDC PO ONE (13:12)
[2023-01-24] MEDS ORDERED: fentaNYL 12 MCG/HR TDSY TD SCH (13:15)
--- NOTE | 2023-01-24 14:58 | Hospitalist Progress Note ---
Date of Service January 24, 2023 Assessment & Plan (1) SBO (small bowel obstruction): Plan: 67 yo female with PMHx of leiomyosarcoma with mets presents with abdominal pain. SBO on presentation resolved on KUB 01/23/23 Secondary to leiomyosarcoma metastasis to her lower pelvis. Presented with uncontrollable pain. Outpatient morphine suspension was written as 0.1 mL of a 100 mg to 5 mL prescription which will give her 2 mg of oral morphine which is likely a small dose. Subsequently her desires to go home on palliative care and she is now in agreement to utilize some more reasonable doses of opiates for pain control including a transdermal fentanyl patch and elixir. Her was at the bedside and we did a fairly good discussion which was realistic about goals of care for the future. Targeting home early this week -gen surg consulted- no plans of venting G-tube as issues have resolved Leiomyosarcoma with mets, pain control not optimized -chronic, worsening compared to one month ago -palliative consulted- pt states she maybe ready for home hospice at discharge continues on bid decadron Bilateral hydronephrosis -due to mass effect from worsening mets. Also now with new onset hematuria. -pt urinating freely, renal function seems intact patient is some lower blood pressure on 1028 resolved with fluids and DVT ppx: SCDs, ambulation moderate to severe protein malnutrition, patient tolerating low residual diet Code Status: DNR/DNI (2) Palliative care encounter: Plan: did see Dr Roman 01/22 (3) Leiomyosarcoma of uterus: Admission and Anticipated Discharge Date Admission Date: January 22, 2023 Subjective patient here with metastatic leiomyosarcoma. She initially presented with a bowel obstruction which is since improved. There is no surgical intervention planned long discussion today with the patient and her as her desires to go home with palliative care however she does limit or refused many opiate pain medications. Subsequently the patient is now in agreement to allow us to try to control her pain with opiates that could be transition to home palliative care. I told her that she has a few weeks and months left with the progression of her disease which will likely cause a obstruction of one of her organs and/or infection at least at the time of my visit the patient was agreeable to begin a fentanyl patch and oral morphine with Ativan and Zofran for nausea. Targeting a goal of getting home early next week to transition outpatient palliative care Physical Exam Physical Exam: her abdomen is slightly distended she is hyperactive bowel sounds she is soft she is tender in the lower quadrants. This is not an acute abdomen. Results & Data Results & Data Vital Signs (Past 12 Hours) Vital Signs Temp Pulse Resp BP BP Pulse Ox O2 Del Method 01/24/23 14:23 98.2 F 110 H 17 92/58 L 98 Room Air 01/24/23 11:00 105 H 17 99/76 L 99 Room Air 01/24/23 10:21 98.1 F 105 H 19 99/60 L 95 Room Air 01/24/23 08:44 99.3 F 112 H 14 77/49 L 96 Room Air 01/24/23 06:14 98.2 F 110 H 16 91/56 L 96 Room Air PG Care Time/CCT Total # of Minutes Spent Total Time Spent with Patient: Total time spent is greater than 50% in coordination of care (as documented) at patient's floor/unit and/or counseling patient: Coding Level of Care Code 03675 SUB INP/OBS CARE 2/35MIN Diagnoses SBO (small bowel obstruction) K56.609 Palliative care encounter Z51.5 Leiomyosarcoma of uterus C55
[2023-01-24] MEDS: CHECK fentaNYL PATCH PLACEMENT SCH (16:59)
[2023-01-24] MEDS: MoRPHine SULFATE 10 MG/0.5 ML UDP PO PRN ×2 (18:03→22:10)
[2023-01-24] MEDS: HEPARIN 100 UNIT/ML 5ML FLUSH FLUSH PRN (20:49)
[2023-01-25] MEDS: HYDROmorphone INJ 0.5 MG/0.5 ML SYR IV PRN (01:10)
[2023-01-25] MEDS: CHECK fentaNYL PATCH PLACEMENT SCH ×4 (01:16→23:07)
[2023-01-25] MEDS: ACETAMINOPHEN 500 MG TAB PO SCH ×3 (06:49→20:20)
[2023-01-25] MEDS: HEPARIN SOD 5,000 UNIT/0.5 ML VIAL SQ SCH ×2 (06:49→20:20)
[2023-01-25] MEDS: SENNOSIDES 8.8 MG/5 ML UDC PO SCH (07:51)
[2023-01-25] MEDS: HEPARIN 100 UNIT/ML 5ML FLUSH FLUSH PRN ×2 (08:42→20:25)
[2023-01-25] MEDS: dexAMETHasone 4 MG in SYRINGE 0 ML IV SCH ×2 (09:39→20:22)
[2023-01-25] MEDS: PANTOprazole 40 MG in SYRINGE 0 ML IV SCH (10:00)
--- NOTE | 2023-01-25 12:32 | Hospitalist Progress Note ---
Date of Service January 25, 2023 Assessment & Plan (1) SBO (small bowel obstruction): Plan: 67 yo female with PMHx of leiomyosarcoma with mets presents with abdominal pain. SBO on presentation resolved on KUB 01/23/23 Secondary to leiomyosarcoma metastasis to her lower pelvis. Presented with uncontrollable pain. Outpatient morphine has been tried dose will be increased on 01/25/2023 continues with fentanyl transdermal patch at 12 mcg Her has goals given the patient -gen surg consulted- no plans of venting G-tube as issues have resolved Leiomyosarcoma with mets, pain control not optimized -chronic, worsening compared to one month ago -palliative consulted- pt states she maybe ready for home hospice at discharge continues on bid decadron Bilateral hydronephrosis -due to mass effect from worsening mets. Also now with new onset hematuria. -pt urinating freely, renal function seems intact patient is some lower blood pressure on 1028 resolved with fluids and DVT ppx: SCDs, ambulation moderate to severe protein malnutrition, patient tolerating low residual diet Code Status: DNR/DNI (2) Palliative care encounter: Plan: did see Dr Roman 01/22 (3) Leiomyosarcoma of uterus: Admission and Anticipated Discharge Date Admission Date: January 22, 2023 Subjective patient here with metastatic leiomyosarcoma. She initially presented with a bowel obstruction which is since improved. There is no surgical intervention planned Patient feels somewhat improved after initiating fentanyl patches although this may be placebo effect as it likely has not reached steady state. Is also been agreeable to taking oral morphine and although this did not help completely last evening requiring parenteral Dilaudid she is agreeable to increasing the dose today. She endorses her overall goal is to return home on hospice care in the next few days Physical Exam Physical Exam: her abdomen remain slightly distended with hyperactive bowel sounds she is s oft she is tender in the lower quadrants. This is not an acute abdomen. Results & Data Results & Data Vital Signs (Past 12 Hours) Vital Signs Temp Pulse Resp BP BP Pulse Ox O2 Del Method 01/25/23 11:08 97.5 F L 110 H 16 101/66 97 Room Air 01/25/23 07:11 97.9 F 120 H 16 109/66 97 Room Air PG Care Time/CCT Total # of Minutes Spent Total Time Spent with Patient: Total time spent is greater than 50% in coordination of care (as documented) at patient's floor/unit and/or counseling patient: Coding Level of Care Code 52358 SUB INP/OBS CARE 35MIN Diagnoses SBO (small bowel obstruction) K56.609 Palliative care encounter Z51.5 Leiomyosarcoma of uterus C55
[2023-01-25] MEDS: MoRPHine SULFATE 10 MG/0.5 ML UDP PO PRN (15:08)
[2023-01-25] MEDS: KETOROLAC TROMETHAMINE 15 MG/ML VIAL IV PRN (20:24)
[2023-01-26] MEDS: HEPARIN SOD 5,000 UNIT/0.5 ML VIAL SQ SCH ×2 (09:24→19:52)
[2023-01-26] MEDS: SENNOSIDES 8.8 MG/5 ML UDC PO SCH (09:25)
[2023-01-26] MEDS: CHECK fentaNYL PATCH PLACEMENT SCH ×3 (09:26→23:45)
[2023-01-26] MEDS: dexAMETHasone 4 MG in SYRINGE 0 ML IV SCH ×2 (09:27→21:26)
[2023-01-26] MEDS: ACETAMINOPHEN 500 MG TAB PO SCH ×3 (09:27→21:26)
[2023-01-26] MEDS: HEPARIN 100 UNIT/ML 5ML FLUSH FLUSH PRN ×2 (09:32→11:14)
[2023-01-26] MEDS: PANTOprazole 40 MG in SYRINGE 0 ML IV SCH (11:14)
[2023-01-26] MEDS: KETOROLAC TROMETHAMINE 15 MG/ML VIAL IV PRN ×2 (11:57→21:28)
--- NOTE | 2023-01-26 12:59 | Palliative Care Progress Note ---
Date of Service January 26, 2023 Assessment & Plan (1) Fatigue: Plan: with progressive metastatic leiomyosarcoma of the uterus She notes increased fatigue with increased opioid doses required to manage her pain She is on decadron We talked about concern that this is likely to continue with disease progression and medications She would like to be seen by PT/OT because she feels like if she moves around, she feels better (2) Abdominal pain: Plan: with SBO secondary to metastatic leiomyosarcoma Some symptomatic improvement She had been considering venting G tube but has had symptomatic improvement We had extensive discussion about a plan for managing her pain that would be doable at home. It's uncertain how much fentanyl she is absorbing with her cachexia and most recent weight of 103 lbs. She has requested increase in fentanyl which she feels has relieved her pain. She asked about toradol at home which would not be an option for her. She is worried about whether po morphine with be ffective and what response time will be for that at home if her pain escalates. We discussed hospice nurse helping her monitor and adjust this at home. Given ongoing, continuous pain which is exacerbated with movement, we discussed possibility of morphine infusion for consistent, more immediate relief of her pain. She has some concerns about removing fentanyl patch which has given her relief. Dr. Davies was present for part of discussion and we again reviewed that continuous morphine infusion would provide sustained relief as with fentanyl. Her and stepdaughter were also present for discussion. They would like to consider as a family before making a decision. I spoke with John and her later in the day. She would prefer to try increase in fentanyl patch. Discussed with Dr. Davies. Will increase to 25mcg and monitor. (3) Nausea: Plan: Improved. Continue prn zofran. (4) Palliative care encounter: Plan: John understands that she is approaching her dying time. She very much wants to be at home but worries about the burden on her family. Family is very supportive and wants to provide care for her at home with the support of hospice. We discussed options for respite or SNF longterm stay if care becomes unmanageable at home. We discussed hospice benefit, services provided and equipment to facilitate her care at home. Discussed with case management who is working with [facility] to facilitate transition to hospice. Admission and Anticipated Discharge Date Admission Date: January 22, 2023 Subjective John tells me that she's feeling very weak but wants to get up and walk around. She has increased pain with movement. She is on fentanyl patch 12mcg, prn IV hydromorphone 0.5mg, prn po morphine 25mg, prn toradol, with approximately 50mg OME in last 24 hours. She continues on decadron 4mg BID. She does not feel that pain is completely controlled and is worried about how pain will be addressed at home. Review of Systems Review of Systems: ESAs Pain 2/3 Dyspnea 0/3 Nausea 0/3 Drowsiness 1/3 Physical Exam Constitutional: + cachectic Respiratory: normal respiratory effort; no labored breathing Gastrointestinal (Abdomen): mild distension, tender to palpation Musculoskeletal: Extremities: + muscle atrophy edema LEs Neurologic: Speech / Cognition: normal cognition Results & Data Vital Signs (Past 12 Hours) Vital Signs Temp Pulse Resp BP Pulse Ox O2 Del Method 01/26/23 07:00 97.7 F 99 H 16 110/66 95 Room Air PG Care Time/CCT Total # of Minutes Spent Total Time Spent: 75 Total Time Spent with Patient: Total time spent is greater than 50% in coordination of care (as documented) at patient's floor/unit and/or counseling patient: goals of care, symptom management, patient and family education and support, coordination of care Coding Level of Care Code 18425 SUB INP/OBS CARE 3/50MIN Diagnoses Fatigue R53.83 Abdominal pain R10.84 Abdominal location: generalized Nausea R11.0 Palliative care encounter Z51.5 (2) Abdominal pain Abdominal location: generalized Qualified Code(s): R10.84 - Generalized abdominal pain
[2023-01-26] MEDS ORDERED: fentaNYL 25 MCG/HR TDSY TD SCH (13:45)
--- NOTE | 2023-01-26 17:57 | Hospitalist Progress Note ---
Date of Service January 26, 2023 Assessment & Plan (1) SBO (small bowel obstruction): Plan: 67 yo female with PMHx of leiomyosarcoma with mets presents with abdominal pain. SBO on presentation resolved on KUB 01/23/23 Secondary to leiomyosarcoma metastasis to her lower pelvis. Presented with uncontrollable pain. 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 after discharge Bilateral hydronephrosis -due to mass effect from worsening mets. Also now with new onset hematuria. -pt urinating freely, renal function seems intact patient is some lower blood pressure on 01/24/23 resolved with fluids and DVT ppx: SCDs, ambulation moderate to severe protein malnutrition, patient tolerating low residual diet Code Status: DNR/DNI (2) Palliative care encounter: Plan: did see Dr Roman 01/22 (3) Leiomyosarcoma of uterus: Admission and Anticipated Discharge Date Admission Date: January 22, 2023 Subjective Discussion with the patient and her Dr. Roman there was some discussion about intravenous parenteral opiates at home. With patient wishes to stay the course with fentanyl patch. Patient is on fentanyl patch plus oral morphine. She is somewhat uncomfortable at times pain is worse with movement patient wishes to continue to move somewhat unreasonable expectations given her degree of progression of cancer however this is the patient's wishes at this point time. Physical Exam Physical Exam: her abdomen remain slightly distended with hyperactive bowel sounds she is soft she is tender in the lower quadrants. This is not an acute abdomen. Results & Data Results & Data Vital Signs (Past 12 Hours) Vital Signs Temp Pulse Resp BP Pulse Ox O2 Del Method 01/26/23 14:59 97.3 F L 102 H 15 102/62 96 Room Air 01/26/23 07:00 97.7 F 99 H 16 110/66 95 Room Air PG Care Time/CCT Total # of Minutes Spent Total Time Spent with Patient: Total time spent is greater than 50% in coordination of care (as documented) at patient's floor/unit and/or counseling patient: Coding Level of Care Code 99084 SUB INP/OBS CARE 235MIN Diagnoses SBO (small bowel obstruction) K56.609 Palliative care encounter Z51.5 Leiomyosarcoma of uterus C55
[2023-01-27] MEDS: HYDROmorphone INJ 0.5 MG/0.5 ML SYR IV PRN ×2 (03:45→16:52)
[2023-01-27] MEDS: CHECK fentaNYL PATCH PLACEMENT SCH ×3 (07:24→23:17)
[2023-01-27] MEDS: dexAMETHasone 4 MG in SYRINGE 0 ML IV SCH ×2 (09:31→20:43)
[2023-01-27] MEDS: ACETAMINOPHEN 500 MG TAB PO SCH ×3 (09:32→20:44)
[2023-01-27] MEDS: SENNOSIDES 8.8 MG/5 ML UDC PO SCH (09:32)
[2023-01-27] MEDS: HEPARIN SOD 5,000 UNIT/0.5 ML VIAL SQ SCH ×2 (09:32→20:44)
[2023-01-27] MEDS: PANTOprazole 40 MG in SYRINGE 0 ML IV SCH (11:51)
[2023-01-27] MEDS: MoRPHine SULFATE 10 MG/0.5 ML UDP PO PRN (12:22)
--- NOTE | 2023-01-27 13:34 | Palliative Care Progress Note ---
Date of Service January 27, 2023 Assessment & Plan (1) Abdominal pain: Plan: We have discussed options for transdermal fentanyl and prn roxanol versus opioid infusion for pain control. She prefers to continue fentanyl and morphine at this time. She asked if she could change her mind later and I assured her that hospice will work with her to adjust medications in any way needed to control her pain. She sometimes waits until pain is severe to ask for medication. Encouraged her to consider medication when pain is moderate to avoid escalation to severe pain. Also discussed with RN to offer medication if she seems uncomfortable. (2) Palliative care encounter: Plan: John and I talked at length about how she is coping with the end stage of her cancer. She understands that she is approaching her dying time and has talked with family about notifying extended family. We discussed her legacy and the things that she is most proud of. She tells me that she did not think that she would so soon but is trying to accept is with enrike. I assured her that we will continue to support her through her journey. Admission and Anticipated Discharge Date Admission Date: January 22, 2023 Subjective Having more abdominal pain. She had one dose of IV hydromorphone overnight and a dose of roxanol about an hour ago. She is having some difficulty keeping track of medications and what is working for her. Review of Systems Review of Systems: ESAS Pain 3/3 Dyspnea 0/3 Nausea 0/3 Drowsiness 1/3 Physical Exam Constitutional: + thin; + uncomfortable Respiratory: normal respiratory effort; no labored breathing Musculoskeletal: Extremities: + muscle atrophy LE edema with compression stockings Skin: warm and dry Neurologic: mild confusion Results & Data Vital Signs (Past 12 Hours) Vital Signs Temp Pulse Resp BP Pulse Ox O2 Del Method 01/27/23 08:50 97.9 F 111 H 18 106/64 96 Room Air PG Care Time/CCT Total # of Minutes Spent Total Time Spent: 60 Total Time Spent with Patient: Total time spent is greater than 50% in coordination of care (as documented) at patient's floor/unit and/or counseling patient: [id number] symptom management, patient education and support Coding Level of Care Code 56259 SUB INP/OBS CARE 3/50MIN Diagnoses Abdominal pain R10.84 Abdominal location: generalized Palliative care encounter Z51.5 (1) Abdominal pain Abdominal location: generalized Qualified Code(s): R10.84 - Generalized abdominal pain
[2023-01-27] MEDS ORDERED: MoRPHine SULFATE 10 MG/0.5 ML UDP PO PRN (14:12)
--- NOTE | 2023-01-27 14:19 | Hospitalist Progress Note ---
Date of Service January 27, 2023 Assessment & Plan (1) SBO (small bowel obstruction): Plan: 67 yo female with PMHx of leiomyosarcoma with mets presents with abdominal pain. SBO on presentation resolved on KUB 01/23/23 Secondary to leiomyosarcoma metastasis to her lower pelvis. Presented with uncontrollable pain. 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 after discharge Bilateral hydronephrosis -due to mass effect from worsening mets. Also now with new onset hematuria. -pt urinating freely, renal function seems intact patient is some lower blood pressure on 01/24/23 resolved with fluids and DVT ppx: SCDs, ambulation moderate to severe protein malnutrition, patient tolerating low residual diet Code Status: DNR/DNI (2) Palliative care encounter: Plan: did see Dr Roman 01/22 (3) Leiomyosarcoma of uterus: Admission and Anticipated Discharge Date Admission Date: January 22, 2023 Subjective Having more abdominal pain. still having some difficulties accepting that she needs to take morphine elixir and that she will be fatigued if she does reinforced the need to take this so we can see if it controls her pain Physical Exam Physical Exam: her abdomen remain slightly distended continues with hyperactive bowel sounds she is soft she is tender in the lower quadrants. This is not an acute abdomen. Results & Data Results & Data Vital Signs (Past 12 Hours) Vital Signs Temp Pulse Resp BP Pulse Ox O2 Del Method 01/27/23 08:50 97.9 F 111 H 18 106/64 96 Room Air PG Care Time/CCT Total # of Minutes Spent Total Time Spent with Patient: Total time spent is greater than 50% in coordination of care (as documented) at patient's floor/unit and/or counseling patient: Coding Level of Care Code 98119 SUB INP/OBS CARE 2/35MIN Diagnoses SBO (small bowel obstruction) K56.609 Palliative care encounter Z51.5 Leiomyosarcoma of uterus C55
[2023-01-27] MEDS: HEPARIN 100 UNIT/ML 5ML FLUSH FLUSH PRN (20:45)
[2023-01-28] MEDS: ONDANSETRON INJ 2 MG/ML 2 ML VIAL IV PRN (07:54)
[2023-01-28] MEDS: HEPARIN 100 UNIT/ML 5ML FLUSH FLUSH PRN ×3 (07:55→11:22)
[2023-01-28] MEDS: dexAMETHasone 4 MG in SYRINGE 0 ML IV SCH (07:55)
[2023-01-28] MEDS: ACETAMINOPHEN 500 MG TAB PO SCH ×3 (09:20→14:58)
[2023-01-28] MEDS: SENNOSIDES 8.8 MG/5 ML UDC PO SCH (09:20)
[2023-01-28] MEDS: HEPARIN SOD 5,000 UNIT/0.5 ML VIAL SQ SCH (09:21)
[2023-01-28] MEDS: CHECK fentaNYL PATCH PLACEMENT SCH (09:22)
[2023-01-28] MEDS: HYDROmorphone INJ 0.5 MG/0.5 ML SYR IV PRN (10:13)
[2023-01-28] MEDS: PANTOprazole 40 MG in SYRINGE 0 ML IV SCH (11:21)
--- NOTE | 2023-01-28 16:18 | Discharge Summary ---
Date of Service January 28, 2023 Admission HPI Per Admitting Provider 67 yo female with PMHx of leiomyosarcoma with mets presents with abdominal pain. Hours ago patient started developing abdominal discomfort which continued to worsen. Mild associated nausea. She has also recently noticed some blood in her urine. She did try taking her liquid morphine at home which did not help much. She does have a history of recurrent small bowel obstruction secondary to her mets, her last bout being 1 month ago. Denies headache, fevers, chest pain, shortness of breath, vomiting, fatigue, constipation, diarrhea, chills, dysuria, extremity numbness/tingling/weakness. Principal Diagnosis metastatic leiomyosarcoma of the uterus transition to inpatient hospice care Discharge Exam patient is in pain lethargic from pain medication uncomfortable abdomen is distended Discharge Data Allergies Allergy/AdvReac Type Severity Reaction Status Date / Time levofloxacin [From Levaquin] AdvReac Intermediate "didn't Verified 12/22/22 10:38 feel well." Consultations 01/22/23 05:10 ED Decision to Admit Stat 01/22/23 06:06 Consult General Surgery Routine 01/22/23 06:17 Consult Palliative Care Routine Ordered Studies 01/22/23 02:53 CT Abd and Pelvis [CT abd pelvis IV con only] Stat Hospital Course (1) SBO (small bowel obstruction): 67 yo female with PMHx of leiomyosarcoma with mets presents with abdominal pain. SBO on presentation resolved on KUB 01/23/23 Secondary to leiomyosarcoma metastasis to her lower pelvis. Presented with uncontrollable pain. Outpatient morphine transdermal fentanyl increased to 25 mcg 01/26/23 oral morphine continues at 30 at as needed dose patient pain is not controlled with the fentanyl and oral morphine. Patient discloses to me that she is uncomfortable going home as she does does not feel her pain is adequately controlled.. She ever falls asleep easily during these conversations but then is awoken by abdominal pain which comes in waves. Inpatient hospice was consulted recommending infusion of parenteral opiates Her Was updated on the patient's decline is becoming more rapid and early in dissipated. He was present for conversation with inpatient hospice team -gen surg consulted- no plans of venting G-tube as issues have resolved Leiomyosarcoma with mets, pain control not optimized -chronic, worsening compared to one month ago continues on bid decadron plan to continue p.o. after discharge Bilateral hydronephrosis -due to mass effect from worsening mets. Also now with new onset hematuria. -pt urinating freely, renal function seems intact patient is some lower blood pressure on 01/24/23 resolved with fluids and DVT ppx: SCDs, ambulation moderate to severe protein malnutrition, patient tolerating low residual diet Code Status: DNR/DNI (2) Palliative care encounter: did have inpatient palliative care consultation (3) Leiomyosarcoma of uterus: Total Time Total Time Spent Total Time Spent (In Minutes): it required less than 30 minutes to prepare this patient for discharge Discharge Plan Discharge Items Patient Disposition: Hospice - Medical Facility Reason For Visit: ABDOMINAL PAIN Discharge Diagnosis: metastatic leiomyosarcoma Activity: Per Instructions section Non-emergency contact: Specialist Call non-emergency contact if: your symptoms worsen Follow-up/Referrals: Karissa Thompson MD [Primary Care Provider] - Diet: Regular Addtl Attending Provider Instructions: transtion to in hospice Pending Studies at Discharge: No Stand-Alone Forms: My [facility] Skilled Items Patient informed of condition?: Yes DNR: Yes Discharge Level of Care: Other Communicable Disease: No Discharge Prognosis: Deteriorating Lines: Peripheral IV Urinary Catheter: No Medications and DC Order Prescriptions: Discontinued cholecalciferol (vitamin D3) 50 mcg (2,000 unit) capsule 50 mcg PO QAM thyroid (pork) [[place] Thyroid] 60 mg tablet 60 mg PO QAM eszopiclone [Lunesta] 3 mg Tablet 3 mg PO HS PRN (Reason: Sleep) cyanocobalamin (vitamin B-12) 1,000 mcg/mL solution 1,000 mcg subcut WK Rx Instructions: on sundays ascorbic acid (vitamin C) [Vitamin C] 500 mg Tablet See Rx Instructions .ROUTE .COMPLEX Rx Instructions: Take 500mg by mouth daily as needed alprazolam 0.25 mg tablet 0.25 mg PO Q8 PRN (Reason: Anxiety) morphine concentrate 100 mg/5 mL (20 mg/mL) solution See Rx Instructions .ROUTE .COMPLEX Rx Instructions: Take 0.1 ml by mouth every 4 hours as needed for pain dexamethasone 4 mg tablet 4 mg PO DAILY furosemide 20 mg tablet 20 mg PO DAILY Discharge Orders: Discharge Order (Routine); Ordered 01/28/23 Ordered By: Jared Davies Admission Data Admit Date/Time: 01/22/23 06:03 Attending Provider: Jared Davies Admit Provider: Marcelo Toure Primary Care Provider: Karissa Thompson Other Providers: Harjit Kim ; Arthur Presley ; María Andrade ; [facility] Coding Level of Care Code 56602 IN/OBS DISCH 30 MIN/LESS Diagnoses SBO (small bowel obstruction) K56.609 Palliative care encounter Z51.5 Leiomyosarcoma of uterus C55
== END 2023-01-28 16:12 | disposition hospice, inpatient (51) | DRG 542 ==
LOC: ED 01:18 → EDINP 06:03 → SUATTDRO 06:03 → EDINP 12:40 → 3W 22:47

== ENCOUNTER 2023-01-28 16:12 | Inpatient (IN) ==
[2023-01-28] MEDS ORDERED: LORazepam 0.5 MG TAB PO PRN (16:31)
[2023-01-28] MEDS ORDERED: ONDANSETRON 4 MG OD TAB SL PRN (16:31)
[2023-01-28] MEDS ORDERED: LORazepam 2 MG/1 ML VIAL IV PRN ×2 (16:31→16:35)
[2023-01-28] MEDS ORDERED: ACETAMINOPHEN 650 MG SUPP PR PRN (16:31)
[2023-01-28] MEDS ORDERED: ONDANSETRON INJ 2 MG/ML 2 ML VIAL IV PRN (16:31)
--- NOTE | 2023-01-28 16:38 | History & Physical Report ---
Date of Service January 28, 2023 Assessment & Plan (1) Leiomyosarcoma of uterus: Plan: patient with metastatic leiomyosarcoma of uterus admitted for inpatient hospice care initiation of hydromorphone drip. Ativan, eating for pleasure with expected in the hospital. Admission and Anticipated Discharge Date Admission Date: January 28, 2023 History of Present Illness Primary Care Provider: Karissa Thompson 67-year-old female with metastatic leiomyosarcoma of the uterus who is just t ransition inpatient hospice care after she came in with recurrent bowel obstruction patient failed attempts of pain control was converted to inpatient hospice for hydromorphone drip initiation for pain control care family was part of the decision-making process Allergies Allergy/AdvReac Type Severity Reaction Status Date / Time levofloxacin [From Levaquin] AdvReac Intermediate "didn't Verified 12/22/22 10:38 feel well." Home Medications Medication Instructions Recorded Confirmed Type thyroid (pork) 60 mg tablet 60 mg PO QAM 02/20/21 01/22/23 History ([place] Thyroid) cholecalciferol (vitamin D3) 50 50 mcg PO QAM 08/06/21 01/22/23 History mcg (2,000 unit) capsule eszopiclone 3 mg tablet (Lunesta) 3 mg PO HS PRN Sleep 08/11/21 01/22/23 History cyanocobalamin (vitamin B-12) 1,000 mcg subcut WK 11/28/22 01/22/23 History 1,000 mcg/mL injection solution ascorbic acid (vitamin C) 500 mg See Rx Instructions .Route .COMPLEX 12/08/22 01/22/23 History tablet (Vitamin C) alprazolam 0.25 mg tablet 0.25 mg PO Q8 PRN Anxiety 12/13/22 01/22/23 History dexamethasone 4 mg tablet 4 mg PO DAILY 01/22/23 01/22/23 History furosemide 20 mg tablet 20 mg PO DAILY 01/22/23 01/22/23 History morphine concentrate 100 mg/5 mL See Rx Instructions .Route .COMPLEX 01/22/23 01/22/23 History (20 mg/mL) oral solution Past Med/Surg History Medical History Anxiety HIGH STRESS LEVEL OVER PAST FEW MONTHS, MULTIPLE DEATHS OF LOVED ONES IN THE PAST YR COPD (chronic obstructive pulmonary disease) NO CURRENT MEDS Family history of reaction to anesthesia MOM - SLOW TO WAKE UP Hepatitis HX HEPATITIS B History of anesthesia reaction "OVERLY SENSITIVE TO" - SLOW TO WAKE UP History of rheumatic fever Hydronephrosis Hypothyroidism Leiomyosarcoma of uterus (~03/2021) S/p hysterectomy and current chemo Lyme disease Fall 2020 Maintenance chemotherapy Currently receiving chemotherapy, last treatment 09/23/21. Mitral valve prolapse syndrome Per ECHO 07/2021 - MV normal in structure and function. Trace MR Port-A-Cath in place (10/02/21) Insertion Access Port, Left Internal Jugular, with Fluoroscopy(Left) - Arthur Presley, DO, FACS SBO (small bowel obstruction) Admitted 08/11/21 to 08/14/21 at [facility] - etiology likely adhesional per discharge summary SBO (small bowel obstruction) Snores ORAL APPLIANCE, NO HX SLEEP STUDY Spinal arachnoid cyst Vaginal bleeding Surgical History H/O carotid endarterectomy [facility] [place] 1982 H/O: hysterectomy Robotic Assisted Laparoscopic hysterectomy, Bilateral Salpingo-oopherectomy History of colonoscopy History of dilatation and curettage last 03/11/21 @ [place] with Dr. Schmitz History of parotid gland excision S/P appendectomy HX S/P tonsillectomy HX S/P wisdom tooth extraction HX Family History Father Heart disease Grandfather (Paternal) No problems noted. Grandfather (Maternal) No problems noted. Grandmother Colorectal cancer Mother Family history of colonic polyps History of anesthesia reaction overly sensitive to anesthesia Stroke Social History Smoking Status: Never smoker Second Hand Exposure: No; Do You Dip or Chew Tobacco: No; Hx Alcohol Use: No Hx Substance Use: No Preferred Language: Hungarian Communication Ability: Effective Visual Impairment: No Limitations Pattern Mechanic Required: No Beliefs That Will Affect Care: None marital status: Current Living Situation: Alone Current Living Situation Comment: With . current occupational status: retired How many Children do You have: 0 Feels Safe at Home: Yes Diet: regular Diet Comment: Juicing, raw vegetables, healthy choices during the past year weight has: remained stable Assistive Devices: Walker Physical Exam Physical Exam: prior to initiation of the hydromorphone infusion the patient was lethargic but would be awoken by waves of pain in her abdomen. She is dry mucous membranes and is slightly confused earlier today however she was very clear and she felt she was at peace with the dying process and understands that she may not leave the hospital Code Status & VTE Plan VTE Prophylaxis Plan VTE Prophylaxis will be ordered: No Reason for no VTE drug order: Treatment not indicated PG Care Time/CCT Total # of Minutes Spent Total Time Spent with Patient: Total time spent is greater than 50% in coordination of care (as documented) at patient's floor/unit and/or counseling patient: Coding Level of Care Code 08986 INT INP/OBS CARE MIN Diagnoses Leiomyosarcoma of uterus C55
[2023-01-28] MEDS ORDERED: HYDROmorphone/NSS 100 MG/100 ML BAG IV SCH (16:45)
[2023-01-29] MEDS: HYDROmorphone BOLUS from BAG IV PRN ×7 (05:15→21:34)
--- NOTE | 2023-01-29 18:42 | Hospitalist Progress Note ---
Date of Service January 29, 2023 Assessment & Plan (1) Leiomyosarcoma of uterus: Plan: Patient admitted for inpatient hospice. Due to intermittent moaning will increase hydromorphone drip. continue to monitor, expect patient to pass within next 48 hours. Admission and Anticipated Discharge Date Admission Date: January 28, 2023 Subjective Patient's family at bedside including her . Patient had been moaning intermittently. Review of Systems Review of Systems: Unobtainable due to cognitive status Physical Exam Physical Exam: Patient resting in bed. Results & Data Results & Data Vital Signs (Past 12 Hours) Vital Signs Temp Pulse Resp BP Pulse Ox O2 Del Method 01/29/23 16:31 20 01/29/23 15:26 37.4 C 146 H 16 94/60 L 93 Room Air 01/29/23 10:23 79 19 125/78 98 Room Air 01/29/23 10:18 Room Air 01/29/23 09:31 Room Air PG Care Time/CCT Total # of Minutes Spent Total Time Spent with Patient: Total time spent is greater than 50% in coordination of care (as documented) at patient's floor/unit and/or counseling patient: Coding Level of Care Code 89737 SUB INP/OBS CARE 04/23MIN Diagnoses Leiomyosarcoma of uterus C55
--- NOTE | 2023-01-30 00:04 | Death Pronouncement Note ---
Date of Service January 30, 2023 Pronouncement Note Admission Date Admission Date: January 28, 2023 Date and Time of Date of : 01/29/23 Time of : 23:30 Contributing Factors (1) Leiomyosarcoma of uterus: Additional Data Confirmation of : no pulse, no respirations, no heart sounds and pupils fixed and dilated Family: at bedside Attending/PCP notified?: Yes Attending physician: Velasquez Cruz Resident Activity Tracking Resident Involvement: Resident Care Provided Care Provided: Adult Hospital Medicine
--- NOTE | 2023-01-30 00:05 | Communication Note ---
Date of Service: January 30, 2023 I was called to pronounce the of John Horan ( 1955) by Kitty Dolan on 01/29/2023. Upon entering the room, patient was found to be in a terminal state. They were unresponsive to, and did not withdraw from verbal or tactile stimuli. They were unresponsive to corneal, pupillary, and oculocephalic reflexes. On cardiopulmonary exam, they were found to be without detectable carotid pulses, and without spontaneous heart tones or respirations. Time of was pronounced by me on 01/29/2023 at 2330. Attending physician was notified. Next of kin was bedside. Resident Activity Tracking Resident Involvement: Resident Care Provided Care Provided: Adult [facility]
--- NOTE | 2023-01-30 06:20 | Discharge Summary ---
Date of Service January 29, 2023 Principal Diagnosis leiomyosarcoma of uterus Discharge Exam as per communication note Discharge Data Allergies Allergy/AdvReac Type Severity Reaction Status Date / Time levofloxacin [From Levaquin] AdvReac Intermediate "didn't Verified 12/22/22 10:38 feel well." Hospital Course (1) Leiomyosarcoma of uterus: 67 yo female with PMHx of leiomyosarcoma with mets presents with abdominal pain. SBO on presentation resolved on KUB 01/23/23 Secondary to leiomyosarcoma metastasis to her lower pelvis. Presented with uncontrollable pain. Outpatient morphine transdermal fentanyl increased to 25 mcg 01/26/23 oral morphine continues at 30 at as needed dose patient pain is not controlled with the fentanyl and oral morphine. Patient discloses to me that she is uncomfortable going home as she does does not feel her pain is adequately controlled.. She ever falls asleep easily during these conversations but then is awoken by abdominal pain which comes in waves. Inpatient hospice was consulted recommending infusion of parenteral opiates Her Was updated on the patient's decline is becoming more rapid and early in dissipated. He was present for conversation with inpatient hospice team -gen surg consulted- no plans of venting G-tube as issues have resolved Leiomyosarcoma with mets, pain control not optimized -chronic, worsening compared to one month ago continues on bid decadron plan to continue p.o. after discharge Bilateral hydronephrosis -due to mass effect from worsening mets. Also now with new onset hematuria. -pt urinating freely, renal function seems intact patient is some lower blood pressure on 01/24/23 resolved with fluids and Patient later admitted under inpatient hospice. Patient on 01/29/2023 at 23:30. Total Time Total Time Spent Total Time Spent (In Minutes): 32 Discharge Plan Discharge Items Patient Disposition: Other Date/Time: 01/29/23 23:30 Coding Level of Care Code 55506 INP/OBS DISCH >30 MIN Diagnoses Leiomyosarcoma of uterus C55 Time Spent (min) 31
== END 2023-01-29 23:30 | disposition expired | DRG 951 ==
LOC: SUATTDRO 16:12 → 3W 16:12